=== PATIENT | female | born 1980 | race Two or more races ===

== ENCOUNTER 2020-08-05 15:12 | Inpatient (IN) | payer MEDICAID ==
[~2020-08-05] VITALS: Ht 172.7 cm; Wt 97.2 kg
[2020-08-05 16:35] LABS: Urine Bacteria FEW /hpf (None Seen); Urine Blood 2+ /uL (Negative); Urine Hyaline Cast FEW /lpf (0 - 2); Urine Mucus FEW (None Seen); Urine WBC 31 /hpf (0 - 5)
[2020-08-05] MEDS ORDERED: SODIUM CHLORIDE 0.9% 1,000 ML IVB ONE (17:03)
[2020-08-05] MEDS ORDERED: PROMETHAZINE HCL 25 MG/ML 1ML IV PRN (17:15)
[2020-08-05] MEDS: SODIUM CHLORIDE 0.9% 1,000 ML IV SCH (22:19)
[2020-08-05] MEDS ORDERED: ONDANSETRON HCL 4 MG/2 ML VIAL IV PRN (22:30)
[2020-08-05] MEDS ORDERED: DOCUSATE SOD 100 MG CAP PO PRN (22:30)
[2020-08-05] MEDS ORDERED: ACETAMINOPHEN 325 MG TAB PO PRN (22:30)
[2020-08-05] MEDS ORDERED: HYDROcodone-ACET 5/325MG TAB PO PRN (22:30)
[2020-08-05] MEDS ORDERED: LORazepam 0.5 MG TAB PO PRN (22:30)
[2020-08-05] MEDS ORDERED: SODIUM CHLORIDE 0.9% 1,000 ML IV ONE (22:30)
[2020-08-05] MEDS ORDERED: TEMAZEPAM 15 MG CAP PO PRN (22:30)
[2020-08-05 22:52] LABS: Basophils # (auto) 0 10 ^3/uL (0-0.2); Basophils % (auto) 0.3 % (0.0-2.0); Eosinophils # (auto) 0.1 10 ^3/uL (0-0.8); Eosinophils % (auto) 0.6 % (0.0-7.0); Hematocrit 52.1 % (36.0-46.0); Hemoglobin 16.3 g/dL (12.2-16.2); Lymphocytes # (auto) 2.5 10 ^3/uL (0.4-5.4); Lymphocytes % (auto) 20.1 % (10.0-50.0); Mean Corpuscular Hemoglobin 26.7 pg (28.0-32.0); Mean Corpuscular Hgb Conc. 31.2 g/dL (32.0-36.0); Mean Corpuscular Volume 85.5 fL (80.0-100.0); Monocytes % (auto) 7.7 % (0.0-12.0); Neutrophils # (auto) 8.8 10 ^3/uL (1.6-8.6); Neutrophils % (auto) 71.3 % (37.0-80.0); Nucleated Red Blood Cells % 0.1 %; Platelet Count (auto) 450 10^3/uL (140-450); Red Blood Cells 6.09 10^6/uL (4.0-5.20); White Blood Cell 12.3 10^3/uL (4.4-10.8)
[2020-08-05] MEDS ORDERED: cefTRIAXone 1GM/50ML D5W 50 ML IV ONE (23:15)
[2020-08-05] MEDS: cefTRIAXone 1GM/50ML D5W 50 ML IV SCH (23:26)
[2020-08-05] MEDS: MORPHINE SULF INJ 2 MG/ML SYRINGE 1ML IV PRN (23:28)
[2020-08-06 00:30] VITALS: BP 115/82
[2020-08-06] MEDS: SODIUM CHLORIDE 0.9% 1,000 ML IV SCH ×3 (03:32→14:07)
[2020-08-06 05:00] VITALS: BP 122/64
[2020-08-06 05:38] LABS: Basophils # (auto) 0.1 10 ^3/uL (0-0.2); Basophils % (auto) 0.9 % (0.0-2.0); Eosinophils # (auto) 0.1 10 ^3/uL (0-0.8); Eosinophils % (auto) 1.4 % (0.0-7.0); Hematocrit 47.9 % (36.0-46.0); Hemoglobin 15.1 g/dL (12.2-16.2); Lymphocytes # (auto) 2.6 10 ^3/uL (0.4-5.4); Lymphocytes % (auto) 28.1 % (10.0-50.0); Mean Corpuscular Hemoglobin 26.7 pg (28.0-32.0); Mean Corpuscular Hgb Conc. 31.6 g/dL (32.0-36.0); Mean Corpuscular Volume 84.5 fL (80.0-100.0); Monocytes # (auto) 0.8 10 ^3/uL (0-1.3); Neutrophils # (auto) 5.7 10 ^3/uL (1.6-8.6); Neutrophils % (auto) 60.6 % (37.0-80.0); Platelet Count (auto) 344 10^3/uL (140-450); Red Blood Cells 5.66 10^6/uL (4.0-5.20); Red Cell Distribution Width 15.8 % (11.8-14.3); White Blood Cell 9.4 10^3/uL (4.4-10.8)
[2020-08-06 06:06] LABS: BUN/Creatinine Ratio 15.7; Calcium 7.9 mg/dL (8.5-10.1); Potassium 3.7 mmol/L (3.5-5.1)
[2020-08-06 08:00] VITALS: BP 133/74
[2020-08-06] MEDS: MORPHINE SULF INJ 2 MG/ML SYRINGE 1ML IV PRN ×3 (08:29→23:30)
[2020-08-06 12:00] VITALS: BP 113/53
[2020-08-06 16:56] VITALS: BP 107/67
[2020-08-06 22:00] VITALS: BP 131/83
[2020-08-06] MEDS: cefTRIAXone 1GM/50ML D5W 50 ML IV SCH (23:29)
[2020-08-07] MEDS: SODIUM CHLORIDE 0.9% 1,000 ML IV SCH (02:38)
[2020-08-07 05:00] VITALS: BP 131/86
[2020-08-07 06:24] LABS: Basophils # (auto) 0 10 ^3/uL (0-0.2); Basophils % (auto) 0.5 % (0.0-2.0); Eosinophils # (auto) 0.1 10 ^3/uL (0-0.8); Eosinophils % (auto) 1.1 % (0.0-7.0); Hematocrit 39.5 % (36.0-46.0); Hemoglobin 13.1 g/dL (12.2-16.2); Lymphocytes # (auto) 2.6 10 ^3/uL (0.4-5.4); Lymphocytes % (auto) 37.3 % (10.0-50.0); Mean Corpuscular Hemoglobin 27.7 pg (28.0-32.0); Mean Corpuscular Hgb Conc. 33.2 g/dL (32.0-36.0); Mean Corpuscular Volume 83.4 fL (80.0-100.0); Monocytes # (auto) 0.6 10 ^3/uL (0-1.3); Neutrophils # (auto) 3.6 10 ^3/uL (1.6-8.6); Neutrophils % (auto) 52.1 % (37.0-80.0); Nucleated Red Blood Cells % 0.1 %; Platelet Count (auto) 352 10^3/uL (140-450); Red Blood Cells 4.74 10^6/uL (4.0-5.20); Red Cell Distribution Width 15.6 % (11.8-14.3); White Blood Cell 6.9 10^3/uL (4.4-10.8)
[2020-08-07 06:57] LABS: Potassium 3.6 mmol/L (3.5-5.1)
[2020-08-07 07:04] LABS: BUN/Creatinine Ratio 14.5; Calcium 7.9 mg/dL (8.5-10.1)
[2020-08-07] MEDS: MORPHINE SULF INJ 2 MG/ML SYRINGE 1ML IV PRN (07:45)
[2020-08-07 08:00] VITALS: BP 138/70
[2020-08-07 09:00] VITALS: BP 138/70
== END 2020-08-07 12:50 | disposition home or self-care (01) | DRG 463 ==
LOC: ER 15:12 → OVERFLOW 15:13 → CENTRAL 23:43
PROVIDERS: ADMIT Hospitalist; ATTEND Internal Medicine
DX: N12 Tubulo-interstitial nephritis, not specified as acute or chronic (principal); E86.0 Dehydration; E66.9 Obesity, unspecified; Z82.49 Family history of ischemic heart disease and other diseases of the circulatory system; Z88.0 Allergy status to penicillin; Z68.32 Body mass index [BMI] 32.0-32.9, adult
CPT/HCPCS: 36415; 71045; 74176; 80048; 81001; 82962; 85025; 87086; G0378; J0696; J2405

== ENCOUNTER 2023-05-11 08:25 | Emergency (ER) | payer MEDICAID ==
[~2023-05-11] VITALS: Ht 170.2 cm; Wt 90.1 kg
[2023-05-11] MEDS ORDERED: MECLIZINE HCL 25 MG TAB PO ONE (09:45)
[2023-05-11] MEDS ORDERED: ONDANSETRON ODT 4 MG TAB PO ONE (09:45)
[2023-05-11] MEDS ORDERED: ACET-1079 PO (09:45)
[2023-05-11] MEDS ORDERED: ACETAMINOPHEN 500 MG TAB PO ONE (09:45)
[2023-05-11] MEDS ORDERED: MECL-126 PO (09:47)
[2023-05-11 10:20] VITALS: BP 129/94
== END 2023-05-11 09:48 | disposition home or self-care (01) ==
LOC: ER 08:25
DX: G44.309 Post-traumatic headache, unspecified, not intractable (principal); W22.8XXA Striking against or struck by other objects, initial encounter; Y93.89 Activity, other specified; Y92.89 Other specified places as the place of occurrence of the external cause; Y99.8 Other external cause status
CPT/HCPCS: 70450; 99284; J8597; Q0162

== ENCOUNTER 2024-05-15 06:08 | Inpatient (IN) | payer MEDICAID ==
[~2024-05-15] VITALS: Ht 172.7 cm; Wt 88.6 kg
[2024-05-15] VITALS (7 sets, daily range): BP systolic 125–132; BP diastolic 76–80; PULSE 74–78; RESP 17–19; TEMP 98–98.4; O2SAT 96–99
[~2024-05-15 06:08] MED LIST: ACET-1079 PO; MECL-126 PO
[2024-05-15 07:15] LABS: Urine Amorphous Crystal FEW /hpf (None Seen); Urine Bacteria FEW /hpf (None Seen); Urine Blood Negative /uL (Negative); Urine Protein, UAD Negative (Negative); Urine Specific Gravity 1.012 (1.001-1.035); Urine Urobilinogen Normal (Negative); Urine WBC <1 /hpf (0 - 5)
[2024-05-15 07:29] LABS: Urine Clarity Clear (Clear); Urine Color Yellow (Yellow)
[2024-05-15 07:35] LABS: Basophils # (auto) 0 10 ^3/uL (0-0.2); Basophils % (auto) 0.2 % (0.0-2.0); Eosinophils # (auto) 0.1 10 ^3/uL (0-0.8); Eosinophils % (auto) 0.5 % (0.0-7.0); Hematocrit 49.1 % (36.0-46.0); Hemoglobin 16.2 g/dL (12.2-16.2); Lymphocytes # (auto) 1.9 10 ^3/uL (0.4-5.4); Lymphocytes % (auto) 12.4 % (10.0-50.0); Mean Corpuscular Hemoglobin 28.3 pg (28.0-32.0); Mean Corpuscular Volume 85.9 fL (80.0-100.0); Monocytes # (auto) 0.7 10 ^3/uL (0-1.3); Monocytes % (auto) 4.9 % (0.0-12.0); Neutrophils # (auto) 12.4 10 ^3/uL (1.6-8.6); Red Blood Cells 5.72 10^6/uL (4.0-5.20); Red Cell Distribution Width 14.2 % (11.8-14.3); White Blood Cell 15.2 10^3/uL (4.4-10.8)
[2024-05-15 07:47] LABS: Alanine Aminotransferase 24 U/L (7-40); Albumin 4.6 g/dL (3.2-4.8); Alkaline Phosphatase 130 U/L (46-116); Anion Gap 10 (5-15); Aspartate Aminotransferase 12 U/L (13-40); BUN/Creatinine Ratio 8.4 (10.0-20.0); Bilirubin, Total 1.1 mg/dL (0.2-1.0); Blood Urea Nitrogen 8 mg/dL (9-23); Calcium 9.4 mg/dL (8.5-10.1); Carbon Dioxide 22 mmol/L (20-30); Chloride 106 mmol/L (98-107); Glucose 99 mg/dL (74-106); Potassium 3.4 mmol/L (3.5-5.1); Sodium 138 mmol/L (136-145)
[2024-05-15 07:48] LABS: Total Protein 8.2 g/dL (5.7-8.2)
[2024-05-15 08:58] LABS: Lipase 30 U/L (12-53)
[2024-05-15] MEDS: ONDANSETRON HCL 4 MG/2 ML VIAL IV ONE (09:41)
[2024-05-15] MEDS: KETOROLAC TROMETH 30 MG/ML 1ML VIAL IV ONE (09:42)
[2024-05-15] MEDS: LABETALOL HCL 20 MG/4 ML VL IV ONE (09:47)
[2024-05-15] MEDS: LABETALOL HCL 5 MG/ML 4ML SYRINGE IV ONE (09:57)
[2024-05-15] MEDS: MORPHINE SULFATE 4 MG/ML SYR/VIAL IV ONE (10:24)
[2024-05-15] MEDS ORDERED: NITROGLYCERIN 0.4 MG SL TAB SL PRN (11:00)
[2024-05-15] MEDS ORDERED: MECLIZINE HCL 25 MG TAB PO PRN (11:00)
[2024-05-15] MEDS ORDERED: MORPHINE SULFATE INJ 2 MG/ml SYRG IV PRN (11:00)
[2024-05-15 12:20] LABS: Bilirubin, Direct 0.3 mg/dL (<0.3)
[2024-05-15 12:29] LABS: INR 1.01 (0.9-1.15); Prothrombin Time 10.7 sec (9.3-11.8)
[2024-05-15] MEDS: KETOROLAC TROMETH 30 MG/ML 1ML VIAL IV PRN (16:17)
[2024-05-15] MEDS: PANTOPRAZOLE 40 MG/10 ML VIAL INJ IV ONE (16:17)
[2024-05-15] MEDS: POTASSIUM EFFERVESENT TAB 25 MEQ PO ONE (16:17)
[2024-05-15] MEDS: SODIUM CHLORIDE 0.9% 1,000 ML IV SCH (17:26)
[2024-05-15] MEDS: metroNIDAZOLE 500MG/100ML 100 ML IV ONE (17:30)
[2024-05-15] MEDS: cefTRIAXone 1GM/50ML D5W 50 ML IV ONE (19:51)
[2024-05-15] MEDS: metroNIDAZOLE 500MG/100ML 100 ML IV SCH (21:45)
[2024-05-16] VITALS (8 sets, daily range): BP systolic 126–136; BP diastolic 80–87; PULSE 73–86; RESP 16–18; TEMP 97.7–98.2; O2SAT 97–99
[2024-05-16 05:50] LABS: Basophils # (auto) 0 10 ^3/uL (0-0.2); Basophils % (auto) 0.2 % (0.0-2.0); Eosinophils # (auto) 0.1 10 ^3/uL (0-0.8); Eosinophils % (auto) 0.8 % (0.0-7.0); Hematocrit 44.2 % (36.0-46.0); Hemoglobin 14.3 g/dL (12.2-16.2); Lymphocytes # (auto) 2.6 10 ^3/uL (0.4-5.4); Lymphocytes % (auto) 21.9 % (10.0-50.0); Mean Corpuscular Hemoglobin 27.9 pg (28.0-32.0); Mean Corpuscular Hgb Conc. 32.5 g/dL (32.0-36.0); Mean Corpuscular Volume 85.9 fL (80.0-100.0); Monocytes # (auto) 0.8 10 ^3/uL (0-1.3); Monocytes % (auto) 6.8 % (0.0-12.0); Neutrophils # (auto) 8.3 10 ^3/uL (1.6-8.6); Neutrophils % (auto) 70.3 % (37.0-80.0); Nucleated Red Blood Cells % 0.2 %; Red Blood Cells 5.14 10^6/uL (4.0-5.20); Red Cell Distribution Width 14.5 % (11.8-14.3); White Blood Cell 11.8 10^3/uL (4.4-10.8)
[2024-05-16 06:03] LABS: Alanine Aminotransferase 18 U/L (7-40); Albumin 3.6 g/dL (3.2-4.8); Alkaline Phosphatase 98 U/L (46-116); Anion Gap 6 (5-15); Aspartate Aminotransferase 11 U/L (13-40); BUN/Creatinine Ratio 13.3 (10.0-20.0); Bilirubin, Total 1.2 mg/dL (0.2-1.0); Blood Urea Nitrogen 10 mg/dL (9-23); Calcium 8.7 mg/dL (8.7-10.4); Carbon Dioxide 24 mmol/L (20-30); Chloride 107 mmol/L (98-107); Glucose 96 mg/dL (74-106); Potassium 3.7 mmol/L (3.5-5.1); Sodium 137 mmol/L (136-145); Total Protein 6.7 g/dL (5.7-8.2)
[2024-05-16] MEDS: cefTRIAXone 1GM/50ML D5W 50 ML IV SCH (09:38)
[2024-05-16] MEDS: PANTOPRAZOLE 40 MG/10 ML VIAL INJ IV SCH (09:39)
[2024-05-16] MEDS ORDERED: ENOXAPARIN SOD 40 MG/0.4 ML SYRINGE SC SCH (10:00)
[2024-05-16] MEDS: hydrALAZINE HCL 20 MG/ML VL IV PRN (19:33)
[2024-05-17] MEDS: ACETAMINOPHEN 325 MG TAB PO PRN (00:48)
[2024-05-17 01:00] VITALS: BP 143/86; PULSE 73; RESP 18; TEMP 98.1; O2SAT 99
[2024-05-17 05:00] VITALS: BP 142/94; PULSE 77; RESP 18; TEMP 98.5; O2SAT 100
[2024-05-17 07:10] LABS: Basophils # (auto) 0 10 ^3/uL (0-0.2); Basophils % (auto) 0.2 % (0.0-2.0); Eosinophils # (auto) 0.1 10 ^3/uL (0-0.8); Eosinophils % (auto) 1.6 % (0.0-7.0); Hematocrit 43.6 % (36.0-46.0); Hemoglobin 14.5 g/dL (12.2-16.2); Lymphocytes # (auto) 1.9 10 ^3/uL (0.4-5.4); Lymphocytes % (auto) 19.7 % (10.0-50.0); Mean Corpuscular Hemoglobin 28.4 pg (28.0-32.0); Mean Corpuscular Hgb Conc. 33.2 g/dL (32.0-36.0); Mean Corpuscular Volume 85.7 fL (80.0-100.0); Monocytes # (auto) 0.7 10 ^3/uL (0-1.3); Monocytes % (auto) 7.8 % (0.0-12.0); Neutrophils # (auto) 6.7 10 ^3/uL (1.6-8.6); Neutrophils % (auto) 70.7 % (37.0-80.0); Nucleated Red Blood Cells % 0.1 %; Red Blood Cells 5.09 10^6/uL (4.0-5.20); Red Cell Distribution Width 14.3 % (11.8-14.3); White Blood Cell 9.5 10^3/uL (4.4-10.8)
[2024-05-17 07:24] LABS: Alanine Aminotransferase 20 U/L (7-40); Alkaline Phosphatase 111 U/L (46-116); Anion Gap 7 (5-15); BUN/Creatinine Ratio 17.5 (10.0-20.0); Blood Urea Nitrogen 11 mg/dL (9-23); Calcium 8.6 mg/dL (8.5-10.1); Carbon Dioxide 24 mmol/L (20-30); Chloride 105 mmol/L (98-107); Glucose 94 mg/dL (74-106); Potassium 3.5 mmol/L (3.5-5.1); Sodium 136 mmol/L (136-145)
[2024-05-17 07:25] LABS: Albumin 3.5 g/dL (3.2-4.8); Aspartate Aminotransferase 16 U/L (13-40)
[2024-05-17 07:26] LABS: Bilirubin, Total 0.8 mg/dL (0.2-1.0); Total Protein 6.5 g/dL (5.7-8.2)
[2024-05-17 09:00] VITALS: BP 138/88; PULSE 73; RESP 20; TEMP 97.5; O2SAT 98
[2024-05-17] MEDS: amLODIPine BESYLATE 5 MG TAB PO ONE (09:17)
[2024-05-17 13:24] VITALS: BP 145/91; PULSE 67; RESP 20; TEMP 97.9; O2SAT 100
[2024-05-17] MEDS ORDERED: AML5T PO (16:41)
[2024-05-17 17:21] VITALS: BP 140/87; PULSE 76; RESP 20; TEMP 97.7; O2SAT 100
[2024-05-17 19:54] VITALS: BP 138/88
[2024-05-18] MEDS ORDERED: amLODIPine BESYLATE 5 MG TAB PO SCH (10:00)
== END 2024-05-17 20:50 | disposition home or self-care (01) ==
LOC: ER 06:12 → TELE 10:53 → TELE-CENTR 12:44 → CENTRAL 05-16 17:47
PROVIDERS: ADMIT Internal Medicine Geriatric Medicine; ATTEND Internal Medicine Geriatric Medicine
DX: K80.20 Calculus of gallbladder without cholecystitis without obstruction (principal); D72.829 Elevated white blood cell count, unspecified; E87.6 Hypokalemia; I10 Essential (primary) hypertension; Z82.49 Family history of ischemic heart disease and other diseases of the circulatory system; Z88.0 Allergy status to penicillin; Z79.899 Other long term (current) drug therapy
CPT/HCPCS: 36415; 76705; 80053; 81001; 82248; 83690; 84702; 85025; 85610; 87040; C9113; G0378; J1885; J2405; J2470; J3490

== ENCOUNTER 2025-04-11 15:54 | Emergency (ER) | payer MEDICAID ==
[~2025-04-11] VITALS: Ht 172.7 cm; Wt 87.0 kg
[~2025-04-11 15:54] MED LIST changes: +AML5T PO
--- NOTE | 2025-04-11 16:23 | ED.PDOC ---
GI ASSESSMENT HPI Comments HPI: 44 y/o F, with no prior medical history presents to the ED for CC of nausea/vomiting. Patient states, she has been experiencing symptoms of nausea, vomiting, and diarrhea x4days. Patient reports, being unable to eat d/t food coming out of one end. Patient describes, diarrhea to be brown/yellowish in appearance. Patient denies change in diet, fever, chills, fatigue, or . No other symptoms or modifying factors present at this time. Vitals Temperature: 98.6F Respiratory rate: 18 SpO2: 98%RA Heart rate: 86 Blood pressure: 146/100 Past Medical History: DENIES ANY Past Surgical History: TONSILLECTOMY Social History: DENIES ALL HERBIE: HPI: Poor Historian. Denies REVIEW OF SYSTEMS: CONSTITUTIONAL: Denies acute: fever, diaphoresis, chills, HEAD: Denies acute: headache, photophobia Eyes: Denies acute: Double vision, vision loss, eye pain, eye discharge. EARS: Denies acute: tinnitus, hearing loss, ear discharge, ear pain, THROAT: Denies acute: sore throat, swelling, difficulty swallowing , pain with swallowing, change in voice. NECK: Denies acute: neck pain, neck swelling, stiff neck. HEART: Denies acute : chest pain, palpitations, LUNGS: Denies acute: SOB, wheezing, cough, hemoptysis ABDOMEN: Denies acute: abdominal pain, , Vomiting, , melena , hematemesis, hematochezia SKIN: Denies acute: rash, redness, lesions, itchiness. EXTREMITIES: Denies acute: calf pain, numbness, tingling, weakness, denies pain in extremity. Denies acute: Low back pain. Neuro: Denies acute: focal neurological deficit, motor or sensory focal neurological deficit, tremors, seizure like activity, confusion, dizziness, change in mental status, loss of bowel or bladder function, cauda equina like symptoms. : Denies acute: dysuria, hematuria, flank pain, increase in urinary frequency. PSYCH: Denies acute: hallucination, suicidal ideation, homicidal ideation. FEMALE: Denies acute: abnormal vaginal bleeding, foul odor, unusual discharge. PHYSICAL EXAM: General: ----mild----acute distress, awake and alert. Head: normocephalic, atraumatic. Neck: supple, trachea is midline, no swelling. Throat: Normal phonation. Eyes:, no erythema, no purulent discharge, no proptosis, no icterus. Heart: regular rate, regular rhythm, no significant murmur appreciated. Lungs: no apparent respiratory distress, Able to speak in full sentences. No wheezing, no rhonchi, no crackles. No stridors Clear to auscultation bilaterally. Abdomen: non tender to palpation, non distended, soft, no guarding, no rebound, + bowel sounds. Neuro: Awake, Alert, oriented to name, self, situation, follows commands GCS=15. Speech is normal. Skin: no petechia, no purpura, no cyanosis, non-pale, not jaundice. Lower extremities: --no - Pitting edema no deformity, no focal swelling, no calf TTP. Makes eye contact. moves all four extremities. Face: no apparent facial droop. Ambulating in the ED independently. ED COURSE: Time Seen by MD: 16:18 Primary Care Provider: NONE Reviewed Notes: Nurses Notes, Medications, Allergies Allergies: Coded Allergies: Penicillins (Verified Allergy, Intermediate, 11/01/14) Home Meds Active Scripts Amlodipine Besylate (NORVASC TABLET) 5 Mg Tb, 5 MG PO DAILY for 90 Days, #90 TAB Prov:RUPERT MALDONADO RESIDENT 05/17/24 Meclizine HCl (Meclizine Hydrochloride) 25 Mg Tab, 25 MG PO [id number] PRN, #12 TAB 0 Refills Prov:KATIE OWEN [facility] 05/11/23 Acetaminophen (Tylenol) 325 Mg Tb, 325 MG PO Q4HPRN PRN, #30 TAB 0 Refills Take 1-2 caps po q4h prn for pain (Do not exceed 3,000mg of acetaminophen in 24 hours) Prov:KATIE OWEN [facility] 05/11/23 Information Source: Patient Mode of Arrival: Ambulatory Timing: Days Duration: Since onset Prehospital treatment: None Quality: None Vomitus: None Stool: Watery, Brown, Yellow Severity: Moderate Recent: None Recent Hx of: None Pain Location: RLQ Modifying Factors: Nothing Associated sign and symptoms: Nausea, Vomiting, Diarrhea, Abdominal Pain Was a procedure done? Was a procedure done?: No GI differential Dx Differential Diagnosis: Gastritis/PUD, Gastroenteritis, Electrolyte Imbalance, Food Poisoning, Bacterial, Viral, Other (DDX include Diverticulitis, colitis, gastroenteritis, acute abdomen, SBO, enteritis, constipation, volvulus, appendicitis, Gallbladder disease, choledocolithiasis, ascending cholangitis, pancreatitis, intraAbdominal mass/neoplasm, hepatitis, UTI, pylonephritis, kidney stone, aneurysm, dissection, Inflammatory bowel disease, gastroparesis, ischemic bowel, ovarian torsion, ovarian cyst/mass, tubo-ovarian abscess, , ectopic , PID, STD.) X-Ray, Labs, Meds, VS Vital Signs Date Time Temp Pulse Resp B/P (MAP) Pulse Ox O2 Delivery O2 Flow Rate FiO2 04/11/25 16:28 98.6 86 18 146/100 (115) 98 98.6 Lab Test 04/11/25 16:47 04/11/25 16:18 04/11/25 16:17 Range/Units Lactic Acid Level 2.0 0.4-2.0 mmol/L Urine Color Yellow Yellow Urine Clarity Turbid H Clear Urine pH 5.5 5.0-9.0 Urine Specific [place] 1.031 1.001-1.035 Urine Protein Trace H Negative Urine Ketones Negative Negative Urine Blood Negative Negative /uL Urine Nitrite Negative Negative Urine Bilirubin Negative Negative Urine Urobilinogen Normal Negative mg/dL Urine Leukocyte Esterase Negative Negative /uL Urine RBC 3 0 - 4 /hpf Urine Microscopic WBC 3 0-5 /HPF Urine Squamous Epithelial Cells Mod <5 /hpf Urine Calcium Oxalate Crystals Mod None Seen Urine Bacteria None seen None Seen /hpf Urine Mucus Few None Seen Urine Glucose Normal Normal mg/dL Stool for White Cells None seen White Blood Count 11.0 H 4.4-10.8 10^3/uL Red Blood Count 6.36 H 4.0-5.20 10^6/uL Hemoglobin 18.2 H 12.2-16.2 g/dL Hematocrit 54.8 H 36.0-46.0 % Mean Corpuscular Volume 86.2 80.0-100.0 fL Mean Corpuscular Hemoglobin 28.6 28.0-32.0 pg Mean Corpuscular Hemoglobin Concent 33.2 32.0-36.0 g/dL Red Cell Distribution Width 14.4 H 11.8-14.3 % Platelet Count 378 140-450 10^3/uL Mean Platelet Volume 8.2 6.9-10.8 fL Neutrophils (%) (Auto) 72.5 37.0-80.0 % Lymphocytes (%) (Auto) 18.2 10.0-50.0 % Monocytes (%) (Auto) 8.0 0.0-12.0 % Eosinophils (%) (Auto) 1.2 0.0-7.0 % Basophils (%) (Auto) 0.1 0.0-2.0 % Neutrophils # (Auto) 8.0 1.6-8.6 10 ^3/uL Lymphocytes # (Auto) 2.0 0.4-5.4 10 ^3/uL Monocytes # (Auto) 0.9 0-1.3 10 ^3/uL Eosinophils # (Auto) 0.1 0-0.8 10 ^3/uL Basophils # (Auto) 0 0-0.2 10 ^3/uL Nucleated Red Blood Cells 0.2 % Sodium Level 139 136-145 mmol/L Potassium Level 3.7 3.5-5.1 mmol/L Chloride Level 103 98-107 mmol/L Carbon Dioxide Level 26 20-31 mmol/L Anion Gap 10 5-15 Blood Urea Nitrogen 13 9-23 mg/dL Creatinine 0.70 0.550-1.02 mg/dL Glomerular Filtration Rate Calc 108 >90 mL/min BUN/Creatinine Ratio 18.6 10.0-20.0 Serum Glucose 77 74-106 mg/dL Calcium Level 9.6 8.7-10.4 mg/dL Magnesium Level 2.1 1.6-2.6 mg/dL Total Bilirubin 1.9 H 0.2-1.0 mg/dL Aspartate Amino Transferase (AST) 21 13-40 U/L Alanine Aminotransferase (ALT) 31 7-40 U/L Alkaline Phosphatase 163 H 46-116 U/L Troponin I High Sensitivity < 3 L </=34 ng/L Total Protein 8.9 H 5.7-8.2 g/dL Albumin 5.0 H 3.2-4.8 g/dL Lipase 31 12-53 U/L [facility] [id number] [facility] [address] Ph: [phone] DIAGNOSTIC IMAGING Diagnostic Imaging Report : [id number] Signed PATIENT: GREY WHITTAKERACCT: [id number] UNIT: [id number] : 1980 LOC: ER ROOM / BED: / AGE / SEX: 44 / F ADM STATUS: REG ER SERVICE 1616 ORDERING PHYSICIAN: RICARDO VALADEZ DO PROCEDURE(s): ABPL - CT AB PEL WO CON-NO ORAL OR IV REASON: diarrhea ORDER NUMBER(s): [id number], ACCESSION NUMBER(s): [id number] EXAM: CT CT AB PEL WO CON-NO ORAL OR IV INDICATION: diarrhea TECHNIQUE: Volumetric multidetector CT images of the abdomen and pelvis were obtained without contrast. All CT scans at this facility use dose modulation, iterative reconstruction, and/or weight based dosing when appropriate to reduce radiation dose to as low as reasonably achievable. COMPARISON: CT ABD PELVIS WO CONTRAST on DOS: 08/05/20 FINDINGS: [LOWER CHEST]: The partially visualized lung bases are clear without a pleural effusion. The cardiac size is normal without pericardial effusion. [LIVER]: Normal hepatic size without suspicious focal lesion. [GALLBLADDER AND BILIARY TREE]: Gallbladder is decompressed. Likely non radiopaque cholelithiasis. [SPLEEN]: Unremarkable. [PANCREAS]: Unremarkable. [ADRENAL GLANDS]: Unremarkable [KIDNEYS]: No hydronephrosis. No nephroureterolithiasis. [BLADDER]: Decompressed limiting evaluation [REPRODUCTIVE ORGANS]: Unremarkable. [BOWEL/MESENTERY]: Stomach is normal. No CT evidence of bowel obstruction. Normal appendix. [ASCITES]: Absent [LYMPHADENOPATHY]: No pathologically enlarged lymph nodes by CT size criteria [VASCULATURE]: No aneurysmal dilatation. [ABDOMINAL WALL]: Unremarkable. [MUSCULOSKELETAL]: No acute fracture or aggressive focal osseous lesion. Multifocal degenerative change of the visualized spine and hips. Oval-shaped sclerotic lesion along the left posterior iliac measuring 2.4 cm, indeterminate. IMPRESSION: 1. No CT evidence of an acute abdominal/pelvic process. ATED BY: ALLI WINN MD DICTATED DATE/TIME: 05/27/25 1701 SIGNED BY: ALLI WINN MD SIGNED DATE/TIME: 04/11/251700 CC: Time of 1ST Reevaluation: 16:48 Reevaluation 1ST: Unchanged Time of 2ND Reevaluation: 18:42 (As of this time, stool studies are still pending. Fluid has not been given yet) Patient Education/Counseling: Diagnosis, Treatment Family Education/Counseling: No Family Present Comments Patient presented with the above HPI.--diarrhea----workup was initiated. patient was found with the above mentioned diagnosis. the following medications were ordered: please refer to order lists of meds and tests obtained by myself Dr. Valadez. Patient ED course and VS have been stabilized. Patient has been reassessed in the ED and remained in a stable condition. Patient left against medical advice. All the reports of any imaging studies that were ordered by myself were reviewed by myself. Departure 1 Departure Time of Disposition: 19:38 Impression: Primary Impression: Diarrhea Disposition: LEFT AGAINST MEDICAL ADVICE Condition: Other Additional Instructions: You are leaving against medical advice. Return to the emergency department if you change your mind. Additional instructions: You MUST follow-up with your primary care/family doctor as soon as possible. If you are unable to see your primary care/family doctor, please return to our emergency room for re-assessment and re-evaluation as soon as possible. Return to the emergency room here in our facility or to the nearest ER [facility] if your symptoms change or worsen. CONSULTATIONS: you MUST Follow-up for consultation as soon as possible with: -gastroenterology as soon as possible. You MUST call the consultants office yourself to make an appointment. You may need to arrange that through your insurance and/or your primary/family doctor. If you are unable to see the foreign law consultant in 1 to 2 days, you must return to our emergency room (or any other ER of your choice) for re-assessment and re-evaluation. Adequate fluid hydration. Below is a copy of your radiological report for follow up: [place] [id number] Ph: [phone] DIAGNOSTIC IMAGING Diagnostic Imaging Report : [id number] Signed PATIENT: GREY WHITTAKER ACCT: [id number] UNIT: [id number] : 1980 LOC: ER ROOM / BED: / AGE / SEX: 44 / F ADM STATUS: REG ER SERVICE 1616 ORDERING PHYSICIAN: RICARDO VALADEZ DO PROCEDURE(s): ABPL - CT AB PEL WO CON-NO ORAL OR IV REASON: diarrhea ORDER NUMBER(s): [id number], ACCESSION NUMBER(s): [id number] EXAM: CT CT AB PEL WO CON-NO ORAL OR IV INDICATION: diarrhea TECHNIQUE: Volumetric multidetector CT images of the abdomen and pelvis were obtained without contrast. All CT scans at this facility use dose modulation, iterative reconstruction, and/or weight based dosing when appropriate to reduce radiation dose to as low as reasonably achievable. COMPARISON: CT ABD PELVIS WO CONTRAST on DOS: 08/05/20 FINDINGS: [LOWER CHEST]: The partially visualized lung bases are clear without a pleural effusion. The cardiac size is normal without pericardial effusion. [LIVER]: Normal hepatic size without suspicious focal lesion. [GALLBLADDER AND BILIARY TREE]: Gallbladder is decompressed. Likely non radiopaque cholelithiasis. [SPLEEN]: Unremarkable. [PANCREAS]: Unremarkable. [ADRENAL GLANDS]: Unremarkable [KIDNEYS]: No hydronephrosis. No nephroureterolithiasis. [BLADDER]: Decompressed limiting evaluation [REPRODUCTIVE ORGANS]: Unremarkable. [BOWEL/MESENTERY]: Stomach is normal. No CT evidence of bowel obstruction. Normal appendix. [ASCITES]: Absent [LYMPHADENOPATHY]: No pathologically enlarged lymph nodes by CT size criteria [VASCULATURE]: No aneurysmal dilatation. [ABDOMINAL WALL]: Unremarkable. [MUSCULOSKELETAL]: No acute fracture or aggressive focal osseous lesion. Multifocal degenerative change of the visualized spine and hips. Oval-shaped sclerotic lesion along the left posterior iliac measuring 2.4 cm, indeterminate. IMPRESSION: 1. No CT evidence of an acute abdominal/pelvic process. ATED BY: ALLI WINN MD DICTATED DATE/TIME: 04/11/251700 SIGNED BY: ALLI WINN MD SIGNED DATE/TIME: 04/11/251700 CC: Discharged With: Self Critical Care Note Critical Care Time?: No I personally scribed for RICARDO VALADEZ DO ([email or web address]) on 04/11/25 at 16:23. Electronically submitted by Marga Dunham [email or web address]). I personally scribed for RICARDO VALADEZ DO ([email or web address]) on 04/11/25 at 17:35. Electronically submitted by Marga Dunham [email or web address]). I personally scribed for RICARDO VALADEZ DO ([email or web address]) on 04/12/25 at 00:46. Electronically submitted by Colton Sexton ([email or web address]). RICARDO VALADEZ DO April 11, 2025 16:23
[2025-04-11 16:28] VITALS: BP 146/100; PULSE 86; RESP 18; TEMP 98.6; O2SAT 98
[2025-04-11] MEDS ORDERED: ONDANSETRON HCL 4 MG/2 ML VIAL IV ONE (16:30)
[2025-04-11] MEDS ORDERED: SODIUM CHLORIDE 0.9% 1,000 ML IV ONE (16:30)
[2025-04-11 17:04] LABS: Urine Bacteria None Seen /hpf (None Seen)
--- NOTE | 2025-04-11 17:04 | DVH ---
EXAM: CT CT AB PEL WO CON-NO ORAL OR IV INDICATION: diarrhea TECHNIQUE: Volumetric multidetector CT images of the abdomen and pelvis were obtained without contras t. All CT scans at this facility use dose modulation, iterative reconstruction, and/or weight based d osing when appropriate to reduce radiation dose to as low as reasonably achievable. COMPARISON: CT ABD PELVIS WO CONTRAST on DOS: 08/05/20 FINDINGS: [LOWER CHEST]: The partially visualized lung bases are clear without a pleural effusion. The cardiac size is normal without pericardial effusion. [LIVER]: Normal hepatic size without suspicious focal lesion. [GALLBLADDER AND BILIARY TREE]: Gallbladder is decompressed. Likely non radiopaque cholelithiasis. [SPLEEN]: Unremarkable. [PANCREAS]: Unremarkable. [ADRENAL GLANDS]: Unremarkable [KIDNEYS]: No hydronephrosis. No nephroureterolithiasis. [BLADDER]: Decompressed limiting evaluation [REPRODUCTIVE ORGANS]: Unremarkable. [BOWEL/MESENTERY]: Stomach is normal. No CT evidence of bowel obstruction. Normal appendix. [ASCITES]: Absent [LYMPHADENOPATHY]: No pathologically enlarged lymph nodes by CT size criteria [VASCULATURE]: No aneurysmal dilatation. [ABDOMINAL WALL]: Unremarkable. [MUSCULOSKELETAL]: No acute fracture or aggressive focal osseous lesion. Multifocal degenerative medina ge of the visualized spine and hips. Oval-shaped sclerotic lesion along the left posterior iliac hank uring 2.4 cm, indeterminate. IMPRESSION: 1. No CT evidence of an acute abdominal/pelvic process.
[2025-04-11 17:20] LABS: Basophils # (auto) 0 10 ^3/uL (0-0.2); Basophils % (auto) 0.1 % (0.0-2.0); Eosinophils # (auto) 0.1 10 ^3/uL (0-0.8); Eosinophils % (auto) 1.2 % (0.0-7.0); Hematocrit 54.8 % (36.0-46.0); Hemoglobin 18.2 g/dL (12.2-16.2); Lymphocytes % (auto) 18.2 % (10.0-50.0); Mean Corpuscular Hemoglobin 28.6 pg (28.0-32.0); Mean Corpuscular Hgb Conc. 33.2 g/dL (32.0-36.0); Mean Corpuscular Volume 86.2 fL (80.0-100.0); Monocytes # (auto) 0.9 10 ^3/uL (0-1.3); Neutrophils % (auto) 72.5 % (37.0-80.0); Nucleated Red Blood Cells % 0.2 %; Platelet Count (auto) 378 10^3/uL (140-450); Red Blood Cells 6.36 10^6/uL (4.0-5.20); Red Cell Distribution Width 14.4 % (11.8-14.3)
[2025-04-11 17:26] LABS: Urine Blood Negative /uL (Negative); Urine Clarity Turbid (Clear); Urine Color Yellow (Yellow); Urine Mucus FEW (None Seen); Urine Protein, UAD TRACE (Negative); Urine Specific Gravity 1.031 (1.001-1.035); Urine Squamous Epithelial Cell MOD /hpf (<5); Urine Urobilinogen Normal (Negative); Urine WBC 3 /HPF (0-5); Urine pH 5.5 (5.0-9.0)
[2025-04-11 17:38] LABS: Alanine Aminotransferase 31 U/L (7-40); Alkaline Phosphatase 163 U/L (46-116); Anion Gap 10 (5-15); Aspartate Aminotransferase 21 U/L (13-40); BUN/Creatinine Ratio 18.6 (10.0-20.0); Blood Urea Nitrogen 13 mg/dL (9-23); Calcium 9.6 mg/dL (8.7-10.4); Carbon Dioxide 26 mmol/L (20-31); Chloride 103 mmol/L (98-107); Glucose 77 mg/dL (74-106); Lipase 31 U/L (12-53); Magnesium 2.1 mg/dL (1.6-2.6); Potassium 3.7 mmol/L (3.5-5.1); Sodium 139 mmol/L (136-145); Total Protein 8.9 g/dL (5.7-8.2)
[2025-04-11 17:39] LABS: Bilirubin, Total 1.9 mg/dL (0.2-1.0)
== END 2025-04-11 19:29 | disposition left against medical advice (07) ==
LOC: ER 15:54
DX: R19.7 Diarrhea, unspecified (principal); Z88.0 Allergy status to penicillin; Z79.899 Other long term (current) drug therapy; Z90.89 Acquired absence of other organs
CPT/HCPCS: 36415; 74176; 80053; 81001; 83605; 83690; 83735; 84484; 85025; 85048; 87045

== ENCOUNTER 2025-08-11 16:14 | Inpatient (IN) | payer MEDICAID ==
[~2025-08-11] VITALS: Ht 170.2 cm; Wt 88.7 kg
--- NOTE | 2025-08-11 16:36 | ED.PDOC ---
GI ASSESSMENT HPI Comments A 44 YEAR OLD FEMALE PRESENTS TO THE ED WITH COMPLAINT OF EPIGASTRIC PAIN WITH NAUSEA AND VOMITING. PATIENT STATES SHE HAS A HISTORY OF GALLSTONES FOR 9 MONTHS. TODAY, SHE ATE FRIED POTATO AND STARTED EXPERIENCING EPIGASTRIC PAIN THAT RADIATES TO HER MIDDLE BACK WITH NAUSEA AND VOMITING. THE PAIN LEVEL IS 10/10 AT THIS TIME. PT HAS HX OF HTN AND DID NOT TAKE HER BLOOD PRESSURE FOR MONTHS AND NOW HAS AN ELEVATED BLOOD PRESSURE DUE TO THIS AND ALSO DUE TO HER INTRACTABLE PAIN. PATIENT DENIES FEVER, CHILLS, SHORTNESS OF BREATH, CHEST PAIN, HEADACHE, OR OTHER COMPLAINTS. NO OTHER SYMPTOMS OR MODIFYING FACTORS AT THIS TIME. PATIENT IS ALERT, ORIENTED X 4, AND HAS STEADY GAIT. Chief Complaint: Abdominal Pain Time Seen by MD: 16:27 Primary Care Provider: NONE Reviewed Notes: Nurses Notes, Medications, Allergies Allergies: Coded Allergies: Penicillins (Verified Allergy, Intermediate, 11/01/14) Home Meds Active Scripts Amlodipine Besylate (NORVASC TABLET) 5 Mg Tb, 5 MG PO DAILY for 90 Days, #90 TAB Prov:RUPERT MALDONADO RESIDENT 05/17/24 Meclizine HCl (Meclizine Hydrochloride) 25 Mg Tab, 25 MG PO [id number] PRN, #12 TAB 0 Refills Prov:[facility] 05/11/23 Acetaminophen (Tylenol) 325 Mg Tb, 325 MG PO Q4HPRN PRN, #30 TAB 0 Refills Take 1-2 caps po q4h prn for pain (Do not exceed 3,000mg of acetaminophen in 24 hours) Prov:[facility] 05/11/23 Information Source: Patient Mode of Arrival: Wheelchair Timing: Hours Duration: Since onset, Intermittent, Hours Prehospital treatment: None Quality: Aching, Cramping Vomitus: Food Particles Stool: Normal Severity: Moderate Recent: None Recent Hx of: None Pain Location: Epigastric Modifying Factors: Nothing Associated sign and symptoms: Nausea, Vomiting, Abdominal Pain Past Medical History PAST MEDICAL HISTORY: Gallstones, HTN Surgical History: Denies all surgeries [employer]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 Family History Family History: Reviewed,noncontributory to illness, Family hx of HTN Social History Smoker: Non-Smoker Alcohol: Rarely Drugs: Marijuana Lives In: Home Constitutional: reports: others (ANXIOUS ); denies: chills, diaphoresis, fatigue, fever, malaise, sweats, weakness EENTM: denies: blurred vision, double vision, ear bleeding, ear discharge, ear drainage, ear pain, ear ringing, eye pain, eye redness, hearing loss, mouth pain, mouth swelling, nasal discharge, nose bleeding, nose congestion, nose pain, photophobia, tearing, throat pain, throat swelling, voice changes, others Respiratory: denies: cough, hemoptysis, orthopnea, SOB at rest, shortness of breath, SOB with excertion, stridor, wheezing, others Cardiovascular: denies: chest pain, dizzy spells, diaphoresis, Dyspnea on exertion, edema, irregular heart beat, left arm pain, lightheadedness, palpitations, PND, syncope, others Gastrointestinal: reports: abdominal pain, nausea, vomiting; denies: abdomen distended, blood streaked bowels, constipated, diarrhea, dysphagia, difficulty swallowing, hematemesis, melena, poor appetite, poor fluid intake, rectal bleeding, rectal pain, others Genitourinary: denies: abnormal vagina bleeding, burning, dyspareunia, dysuria, flank pain, frequency, hematuria, incontinence, pain, , vagina discharge, urgency, others Neurological: denies: dizziness, fainting, headache, left sided numbness, left sided weakness, numbness, paresthesia, pre-existing deficit, right sided numbness, right sided weakness, seizure, speech problems, tingling, tremors, weakness, others Musculoskeletal: reports: back pain; denies: gout, joint pain, joint swelling, muscle pain, muscle stiffness, neck pain, others Integumetry: denies: bruises, change in color, change in hair/nails, dryness, laceration, lesions, lumps, rash, wounds, others Allergic/Immunocompromised: denies: Difficulty Healing, Frequent Infections, Hives, Itching, others Hematologic/Lymphatic: denies: anemia, blood clots, easy bleeding, easy br uising, swollen glands, others Endocrine: denies: excessive hunger, excessive sweating, excessive thirst, excessive urination, flushing, intolerance to cold, intolerance to heat, unexplained weight gain, unexplained weight loss, others Psychiatric: denies: anxiety, bipolar disorder, depression, hopeless, panic disorder, schizophrenia, sleepless, suicidal, others All Other Systems: Reviewed and Negative Physical Exam General Appearance: Mild Distress, Other (ANXIOUS ) HEENT: Normal ENT Inspection, PERRL/EOMI, Pharynx Normal, TMs Normal Neck: Full Range of Motion, Non-Tender, Normal, Normal Inspection Respiratory: Chest Non-Tender, Lungs Clear, No Accessory Muscle Use, No Respiratory Distress, Normal Breath Sounds Cardiovascular: No Edema, No JVD, No Murmur, No Gallop, Normal Peripheral Pulses, Regular Rate/Rhythm Breast Exam: Deferred Gastrointestinal: Epigastric, No Organomegaly, No Pulsatile Mass, Normal Bowel Sounds, Soft, Tenderness (EPIGASTRIC WITH GUARDING, NO REBOUND TENDERNESS. ) Genitalia: Deferred Pelvic: Deferred Rectal: Deferred Extremities: No calf tenderness, Normal capillary refill, Normal inspection, Normal range of motion, Non-tender, No pedal edema Musculoskeletal : Apperance: Normal Neurologic: Alert, speech and language clinician II-XII nml as Tested, No Motor Deficits, Normal Affect, Normal Mood, No Sensory Deficits Cerebellar Function: Normal Reflexes: Normal Skin: Dry, Normal Color, Warm Peripheral Pulses: 2+ carotid (R), 2+ carotid (L) Lymphatic: No Adenopathy Was a procedure done? Was a procedure done?: No GI differential Dx Differential Diagnosis: Cholecystitis, Constipation, Gastritis/PUD, Pancreatiti s, UTI, Dehydration X-Ray, Labs, Meds, VS Vital Signs Date Time Temp Pulse Resp B/P (MAP) Pulse Ox O2 Delivery O2 Flow Rate FiO2 08/11/25 16:54 69 20 185/90 08/11/25 16:24 97.3 64 16 208/93 100 97.3 Lab Test 08/11/25 16:36 Range/Units White Blood Count 11.8 H 4.4-10.8 10^3/uL Red Blood Count 5.66 H 4.0-5.20 10^6/uL Hemoglobin 16.1 12.2-16.2 g/dL Hematocrit 48.7 H 36.0-46.0 % Mean Corpuscular Volume 86.0 80.0-100.0 fL Mean Corpuscular Hemoglobin 28.5 28.0-32.0 pg Mean Corpuscular Hemoglobin Concent 33.1 32.0-36.0 g/dL Red Cell Distribution Width 14.4 H 11.8-14.3 % Platelet Count 335 140-450 10^3/uL Mean Platelet Volume 8.5 6.9-10.8 fL Neutrophils (%) (Auto) 81.8 H 37.0-80.0 % Lymphocytes (%) (Auto) 13.2 10.0-50.0 % Monocytes (%) (Auto) 4.4 0.0-12.0 % Eosinophils (%) (Auto) 0.2 0.0-7.0 % Basophils (%) (Auto) 0.4 0.0-2.0 % Neutrophils # (Auto) 9.7 H 1.6-8.6 10 ^3/uL Lymphocytes # (Auto) 1.6 0.4-5.4 10 ^3/uL Monocytes # (Auto) 0.5 0-1.3 10 ^3/uL Eosinophils # (Auto) 0 0-0.8 10 ^3/uL Basophils # (Auto) 0 0-0.2 10 ^3/uL Nucleated Red Blood Cells 0.1 % Sodium Level 138 136-145 mmol/L Potassium Level 3.6 3.5-5.1 mmol/L Chloride Level 105 98-107 mmol/L Carbon Dioxide Level 21 20-31 mmol/L Anion Gap 12 5-15 Blood Urea Nitrogen 6 L 9-23 mg/dL Creatinine 0.77 0.550-1.02 mg/dL Glomerular Filtration Rate Calc 96 >90 mL/min BUN/Creatinine Ratio 7.8 L 10.0-20.0 Serum Glucose 108 H 74-106 mg/dL Calcium Level 9.5 8.7-10.4 mg/dL Total Bilirubin 1.2 H 0.2-1.0 mg/dL Aspartate Amino Transferase (AST) 22 13-40 U/L Alanine Aminotransferase (ALT) 26 7-40 U/L Alkaline Phosphatase 145 H 46-116 U/L Total Protein 8.4 H 5.7-8.2 g/dL Albumin 4.4 3.2-4.8 g/dL Lipase 28 12-53 U/L Current Medications Medications (Trade) Dose Ordered Sig/Shirley Route Start Time Stop Time Status Last Admin Sodium Chloride 1,000 ml @ 1,000 mls/hr Q1H ONCE IV 08/11/25 16:45 08/11/25 17:44 9/26/25 17:26 EXAM: US GALLBLADDER HISTORY: EPIGASTRIC PAIN WITH N/V, HX OF GALLSTONES COMPARISON: US GALLBLADDER on DOS: 05/15/24 TECHNIQUE: Multiple longitudinal and transverse sonographic images of the abdomen were obtained. Doppler was applied as indicated. FINDINGS: [PANCREAS]: The visualized portions of the pancreas are unremarkable. [AORTA]: Normal [LIVER]: 14.1 cm. normal echogenicity and echotexture. There is no focal hepatic mass lesion detected. [GALLBLADDER]: Gallbladder wall measures 0.2 cm. Cholelithiasis seen in the gallbladder neck. Possible biliary sludge. There is a positive sonographic Velasquez sign. [BILIARY TREE]: Common bile duct measures 0.7 cm in diameter. no intrahepatic biliary ductal dilatation. [ASCITES]: No free fluid is demonstrated. [VESSELS]: The main portal vein is patent on color Doppler evaluation. The inferior vena cava is patent on color Doppler evaluation. [RIGHT KIDNEY]: 12.6 cm. normal cortical echogenicity and normal contour. No hydronephrosis. IMPRESSION: 1. Cholelithiasis with positive sonographic Velasquez sign. 2. No gallbladder wall thickening or pericholecystic fluid. 3. Common bile duct is mildly dilated measuring 0.7 cm in diameter. 4. Correlate for acute cholecystitis. ATED BY: ALLI WINN MD DICTATED DATE/TIME: 08/11/251729 SIGNED BY: ALLI WINN MD SIGNED DATE/TIME: 08/11/251729 CC: X-Ray, Labs, Meds, VS Comment EXTERNAL MEDICAL RECORDS REVIEWED: [NONE] INDEPENDENT HISTORIANS: [NONE] SOCIAL DETERMINANTS OF HEALTH: [NONE] LABS ORDERED: CBC, CMP, UA, LIPASE REVIEWED AND INTERPRETED RESULTS: TBI 1.2, WBC 11.8 IMAGING ORDERED: US ABDOMEN TREATMENTS ORDERED: NS 1 L IV, ZOFRAN 4 MG IV, MORPHINE 4 MG IV, HYDRALAZINE 20 MG IV AND ROCEPHIN 1GM IVP PROCEDURES PERFORMED: NONE CRITICAL CARE TIME: NONE I HAVE DISCUSSED THE PATIENT WITH THE ATTENDING PHYSICIAN DR. KELLY AND HE AGREES WITH THE PATIENT'S PLAN OF CARE. UPON MY PHYSICAL EXAMINATION, THE PATIENT HAD GUARDING NOTED UPON PALPATION TO HER EPIGASTRIC REGION AND WAS VELASQUEZ'S SIGN POSITIVE UPON PALPATION, BUT NO REBOUND TENDERNESS WAS NOTED. PATIENT'S ULTRASOUND RESULTS REVEAL A POSITIVE VELASQUEZ'S SIGN AND MULTIPLE GALLSTONES, BILIARY SLUDGE, AND A MILDLY DILATED CBD. DUE TO THE PATIENT'S PERSISTENT PAIN DESPITE TREATMENT, ELEVATED BLOOD PRESSURE, AND HER ULTRASOUND RESULTS AND CLINICAL EXAM FINDINGS REVEALING FINDINGS CONSISTENT WITH ACUTE CHOLECYSTITIS, I HAVE DETERMINED THE PATIENT SHOULD BE ADMITTED FOR FURTHER TREATMENT AND EVALUATION. THE ON-CALL HOSPITALIST WILL BE CONTACTED FOR ADMISSION OF THIS PATIENT. Images Reviewed?: Images reviewed and evaluated by me Time of 1ST Reevaluation: 17:40 Reevaluation 1ST: Unchanged Patient Education/Counseling: Diagnosis, Treatment Family Education/Counseling: Diagnosis, Treatment SEPSIS Sepsis Screen Date sepsis recognized/suspect: Aug 11, 2025 Time Sepsis recognized/suspect: 1625 Recent Procedure: No On Antibiotic Therapy: No Respiratory Rate >20: No Heart Rate >90: No Temp<36 C (96.8 F) or >38.3 C: No SBP <90 or MAP <65 mmHG: No New Acute Mental Status Change: No Is the patient on CPAP, BIPAP,: No Physician Orders Urinalysis (08/11/25 16:27) Heplock Iv (08/11/25 ) Sodium Chloride 0.9% (08/11/25 16:45) Gallbladder (08/11/25 16:32) Hydralazine Injection (Apresoline Inject (08/11/25 17:45) Ceftriaxone 1gm/50ml (Rocephin) (08/11/25 17:45) Vital Signs Date Time Temp Pulse Resp B/P (MAP) Pulse Ox O2 Delivery O2 Flow Rate FiO2 08/11/25 16:54 69 20 185/90 08/11/25 16:24 97.3 64 16 208/93 100 97.3 Laboratory Tests Test 08/11/25 16:36 White Blood Count 11.8 10^3/uL (4.4-10.8) H Medications Medications Dose Ordered Sig/Shirley Route Start Time Stop Time Status Last Admin Dose Admin Sodium Chloride 1,000 ml @ 1,000 mls/hr Q1H ONCE IV 08/11/25 16:45 08/11/25 17:44 08/11/25 17:26 Departure 1 Departure Time of Disposition: 17:41 Impression: Primary Impression: Cholelithiasis with cholecystitis Qualified Codes: K80.00 - Calculus of gallbladder with acute cholecystitis without obstruction Additional Impression: Accelerated hypertension Disposition: ADMITTED INPATIENT Condition: Serious Critical Care Note Critical Care Time?: No Stability Stability form required: Yes Unstable for transfer: Requires medication, ED Physician Assesment, Possible rapid decline I personally scribed for ZION ALBERT ([email or web address]) on 08/11/25 at 16:36. Electronically submitted by Edson Jenkins ([email or web address]). I personally scribed for ZION ALBERT ([email or web address]) on 08/11/25 at 16:36. Electronically submitted by Edson Jenkins ([email or web address]). I personally scribed for ZION ALBERT ([email or web address]) on 08/11/25 at 17:35. Electronically submitted by Edson Jenkins ([email or web address]). I personally scribed for ZION ALBERT ([email or web address]) on 08/11/25 at 17:37. Electronically submitted by Edson Jenkins ([email or web address]). ZION ALBERT Aug 11, 2025 16:36
[2025-08-11] MEDS: MORPHINE SULFATE 4 MG/ML SYR/VIAL IV ONE (16:54)
[2025-08-11] MEDS: ONDANSETRON HCL 4 MG/2 ML VIAL IV ONE (16:57)
[2025-08-11 16:58] LABS: Hematocrit 48.7 % (36.0-46.0); Hemoglobin 16.1 g/dL (12.2-16.2); Mean Corpuscular Hemoglobin 28.5 pg (28.0-32.0); Mean Corpuscular Volume 86.0 fL (80.0-100.0); Nucleated Red Blood Cells % 0.1 %
[2025-08-11 17:18] LABS: Alanine Aminotransferase 26 U/L (7-40); Albumin 4.4 g/dL (3.2-4.8); Anion Gap 12 (5-15); BUN/Creatinine Ratio 7.8 (10.0-20.0); Calcium 9.5 mg/dL (8.7-10.4); Carbon Dioxide 21 mmol/L (20-31); Chloride 105 mmol/L (98-107); Lipase 28 U/L (12-53); Potassium 3.6 mmol/L (3.5-5.1); Sodium 138 mmol/L (136-145)
[2025-08-11 17:19] LABS: Alkaline Phosphatase 145 U/L (46-116); Bilirubin, Total 1.2 mg/dL (0.2-1.0); Blood Urea Nitrogen 6 mg/dL (9-23); Glucose 108 mg/dL (74-106); Total Protein 8.4 g/dL (5.7-8.2)
[2025-08-11] MEDS: SODIUM CHLORIDE 0.9% 1,000 ML IV ONE (17:26)
--- NOTE | 2025-08-11 17:32 | DVH ---
EXAM: US GALLBLADDER HISTORY: EPIGASTRIC PAIN WITH N/V, HX OF GALLSTONES COMPARISON: US GALLBLADDER on DOS: 05/15/24 TECHNIQUE: Multiple longitudinal and transverse sonographic images of the abdomen were obtained. Dopp ler was applied as indicated. FINDINGS: [PANCREAS]: The visualized portions of the pancreas are unremarkable. [AORTA]: Normal [LIVER]: 14.1 cm. normal echogenicity and echotexture. There is no focal hepatic mass lesion detected . [GALLBLADDER]: Gallbladder wall measures 0.2 cm. Cholelithiasis seen in the gallbladder neck. Possib le biliary sludge. There is a positive sonographic Velasquez sign. [BILIARY TREE]: Common bile duct measures 0.7 cm in diameter. no intrahepatic biliary ductal dilatati on. [ASCITES]: No free fluid is demonstrated. [VESSELS]: The main portal vein is patent on color Doppler evaluation. The inferior vena cava is esparza nt on color Doppler evaluation. [RIGHT KIDNEY]: 12.6 cm. normal cortical echogenicity and normal contour. No hydronephrosis. IMPRESSION: 1. Cholelithiasis with positive sonographic Velasquez sign. 2. No gallbladder wall thickening or pericholecystic fluid. 3. Common bile duct is mildly dilated measuring 0.7 cm in diameter. 4. Correlate for acute cholecystitis.
[2025-08-11] MEDS: hydrALAZINE HCL 20 MG/ML VL IV ONE (17:49)
[2025-08-11] MEDS ORDERED: hydrALAZINE HCL 20 MG/ML VL IV PRN (20:45)
[2025-08-11] MEDS ORDERED: ONDANSETRON HCL 4 MG/2 ML VIAL IV PRN (20:45)
[2025-08-11] MEDS: PANTOPRAZOLE 40 MG/10 ML VIAL INJ IV ONE (21:02)
--- NOTE | 2025-08-11 23:00 | DVHHP2 ---
History of Present Illness Reason for Visit: Abdominal pain History of Present Illness 44-year-old female presents for evaluation of abdominal pain. Patient endorses a one day history of sharp right upper quadrant abdominal pain that radiates to her back. She reports being diagnosed with gallstones in the past. She also reports having episodes of nausea with vomiting and some chills. Patient was also noted to be hypertensive on arrival to the emergency department. Denies headache or blurred vision. No other acute complaints reported. Past Medical History Hypertension and gallstones Past Surgical History Denies Family History Noncontributory Smoke: No ALCOHOL: occassional Drugs: Marijuana Lives: with Family Review of Systems Review of Systems Review of systems are currently negative otherwise addressed in HPI. Allergies: Coded Allergies: Penicillins (Verified Allergy, Intermediate, 11/01/14) Medications Current Medications Medications Dose Ordered Sig/Shirley Route Start Time Stop Time Status Last Admin Dose Admin Levofloxacin/ Dextrose 100 ml @ 100 mls/hr DAILY IV 08/12/25 10:00 Metronidazole 100 ml @ 100 mls/hr Q8HR IV 08/11/25 22:00 08/11/25 21:03 100 MLS/HR Pantoprazole Sodium 40 mg DAILY IV 08/12/25 10:00 Hydralazine HCl 10 mg Q6HP PRN IV 08/11/25 20:45 Ondansetron HCl 4 mg Q4HP PRN IV 08/11/25 20:45 Morphine Sulfate 2 mg Q4HPRN PRN IV 08/11/25 20:45 Exam Vital Signs Vital Signs Date Time Temp Pulse Resp B/P (MAP) Pulse Ox O2 Delivery O2 Flow Rate FiO2 08/11/25 21:01 98.1 102 20 125/76 (92) 98 98.1 08/11/25 18:21 Room Air Exam Gen: 44-year-old female in mild distress Skin: Warm, dry, normal color and texture, no rash. HEENT: Normocephalic atraumatic, mucous membranes moist and pink. Neck: Cervical and supraclavicular nodes normal without enlargement, trachea is midline, thyroid gland is normal without masses. Pulmonary: Clear to auscultation and percussion bilaterally. Cardiac: Regular rate and rhythm. No murmur Abdomen: Soft, right upper quadrant tenderness, nondistended, bowel sounds present all 4 quadrants, no guarding, no rigidity, no organomegaly. Extremities: No cyanosis, clubbing, no edema Neuro: Cranial nerves II through XII grossly intact, normal affect and speech, no focal motor deficits. Labs/Xrays ORDERING PHYSICIAN: ZION ALBERT PROCEDURE(s): GBUS - GALLBLADDER REASON: EPIGASTRIC PAIN WITH N/V, HX OF GALLSTONES ORDER NUMBER(s): [id number], ACCESSION NUMBER(s): [id number] EXAM: US GALLBLADDER HISTORY: EPIGASTRIC PAIN WITH N/V, HX OF GALLSTONES COMPARISON: US GALLBLADDER on DOS: 05/15/24 TECHNIQUE: Multiple longitudinal and transverse sonographic images of the abdomen were obtained. Doppler was applied as indicated. FINDINGS: [PANCREAS]: The visualized portions of the pancreas are unremarkable. [AORTA]: Normal [LIVER]: 14.1 cm. normal echogenicity and echotexture. There is no focal hepatic mass lesion detected. [GALLBLADDER]: Gallbladder wall measures 0.2 cm. Cholelithiasis seen in the gallbladder neck. Possible biliary sludge. There is a positive sonographic Velasquez sign. [BILIARY TREE]: Common bile duct measures 0.7 cm in diameter. no intrahepatic biliary ductal dilatation. [ASCITES]: No free fluid is demonstrated. [VESSELS]: The main portal vein is patent on color Doppler evaluation. The inferior vena cava is patent on color Doppler evaluation. [RIGHT KIDNEY]: 12.6 cm. normal cortical echogenicity and normal contour. No hydronephrosis. IMPRESSION: 1. Cholelithiasis with positive sonographic Velasquez sign. 2. No gallbladder wall thickening or pericholecystic fluid. 3. Common bile duct is mildly dilated measuring 0.7 cm in diameter. 4. Correlate for acute cholecystitis. Labs Test 08/11/25 16:36 Range/Units White Blood Count 11.8 H 4.4-10.8 10^3/uL Red Blood Count 5.66 H 4.0-5.20 10^6/uL Hemoglobin 16.1 12.2-16.2 g/dL Hematocrit 48.7 H 36.0-46.0 % Mean Corpuscular Volume 86.0 80.0-100.0 fL Mean Corpuscular Hemoglobin 28.5 28.0-32.0 pg Mean Corpuscular Hemoglobin Concent 33.1 32.0-36.0 g/dL Red Cell Distribution Width 14.4 H 11.8-14.3 % Platelet Count 335 140-450 10^3/uL Mean Platelet Volume 8.5 6.9-10.8 fL Neutrophils (%) (Auto) 81.8 H 37.0-80.0 % Lymphocytes (%) (Auto) 13.2 10.0-50.0 % Monocytes (%) (Auto) 4.4 0.0-12.0 % Eosinophils (%) (Auto) 0.2 0.0-7.0 % Basophils (%) (Auto) 0.4 0.0-2.0 % Neutrophils # (Auto) 9.7 H 1.6-8.6 10 ^3/uL Lymphocytes # (Auto) 1.6 0.4-5.4 10 ^3/uL Monocytes # (Auto) 0.5 0-1.3 10 ^3/uL Eosinophils # (Auto) 0 0-0.8 10 ^3/uL Basophils # (Auto) 0 0-0.2 10 ^3/uL Nucleated Red Blood Cells 0.1 % Sodium Level 138 136-145 mmol/L Potassium Level 3.6 3.5-5.1 mmol/L Chloride Level 105 98-107 mmol/L Carbon Dioxide Level 21 20-31 mmol/L Anion Gap 12 5-15 Blood Urea Nitrogen 6 L 9-23 mg/dL Creatinine 0.77 0.550-1.02 mg/dL Glomerular Filtration Rate Calc 96 >90 mL/min BUN/Creatinine Ratio 7.8 L 10.0-20.0 Serum Glucose 108 H 74-106 mg/dL Calcium Level 9.5 8.7-10.4 mg/dL Total Bilirubin 1.2 H 0.2-1.0 mg/dL Aspartate Amino Transferase (AST) 22 13-40 U/L Alanine Aminotransferase (ALT) 26 7-40 U/L Alkaline Phosphatase 145 H 46-116 U/L Total Protein 8.4 H 5.7-8.2 g/dL Albumin 4.4 3.2-4.8 g/dL Lipase 28 12-53 U/L SEPSIS Sepsis Screen Date sepsis recognized/suspect: Aug 11, 2025 Time Sepsis recognized/suspect: 1626 Recent Procedure: No On Antibiotic Therapy: No Respiratory Rate >20: No Heart Rate >90: No Temp<36 C (96.8 F) or >38.3 C: No SBP <90 or MAP <65 mmHG: No New Acute Mental Status Change: No Is the patient on CPAP, BIPAP,: No Physician Orders Urinalysis (08/11/25 16:27) Heplock Iv (08/11/25 ) Gallbladder (08/11/25 16:32) Nm Hida Scan (08/11/25 20:34) * Surgical Consult (08/11/25 ) Levofloxacin 500mg (Levaquin 500mg/ 100m (08/12/25 10:00) Metronidazole 500mg/100ml (Flagyl 500mg/ (08/11/25 22:00) Sodium Chloride 0.9% (08/11/25 20:45) Pantoprazole (Protonix) (08/12/25 10:00) Hydralazine Injection (Apresoline Inject (08/11/25 20:45) Ondansetron Hcl (Zofran) (08/11/25 20:45) Complete Blood Count (08/12/25 04:00) Comprehensive Metabolic Panel (08/12/25 04:00) Npo (Nothing By Mouth) Diet (08/12/25 Breakfast) Condition: Stable (08/11/25 20:34) Bedrest With Bathroom Privileg (08/11/25 20:34) Morphine Sulfate Injection (08/11/25 20:45) Admit (08/11/25 21:16) Vital Signs Date Time Temp Pulse Resp B/P (MAP) Pulse Ox O2 Delivery O2 Flow Rate FiO2 08/11/25 21:01 98.1 102 20 125/76 (92) 98 98.1 08/11/25 18:21 78 14 119/74 (89) 98 08/11/25 18:21 78 14 98 Room Air 08/11/25 17:49 188/103 08/11/25 16:54 69 20 185/90 08/11/25 16:24 97.3 64 16 208/93 100 97.3 Laboratory Tests Test 08/11/25 16:36 White Blood Count 11.8 10^3/uL (4.4-10.8) H Medications Medications Dose Ordered Sig/Shirley Route Start Time Stop Time Status Last Admin Dose Admin Ceftriaxone Sodium 50 ml @ 100 mls/hr ONCE ONCE IV 08/11/25 17:45 08/11/25 18:14 DC 08/11/25 19:37 100 MLS/HR Metronidazole 100 ml @ 100 mls/hr Q8HR IV 08/11/25 22:00 08/11/25 21:03 100 MLS/HR Pantoprazole Sodium 40 mg ONCE ONCE IV 08/11/25 20:45 08/11/25 20:57 DC 08/11/25 21:02 40 MG Sodium Chloride 1,000 ml @ 1,000 mls/hr Q1H ONCE IV 08/11/25 16:45 08/11/25 17:44 DC 08/11/25 17:26 1,000 MLS/HR Assessment/Plan Assessment/Plan Assessment Acute abdominal pain Rule out acute cholecystitis Hypertensive crisis Transaminitis Cholelithiasis Plan Admit the patient to [facility] to the hospitalist HIDA scan pending Rocephin/Flagyl Surgical consultation NPO Pain management As needed antihypertensives Continue treatment per orders. Plan discussed with: Patient My Orders Orders - ROSALES ATKINSON Procedure Category Date Status Time Nm Hida Scan NM 08/11/25 Logged 20:34 * Surgical Consult CONS 08/11/25 Transmitted Levofloxacin 500mg PHA 08/12/25 In Process (Levaquin 500mg/ 100m 10:00 Metronidazole PHA 08/11/25 In Process 500mg/100ml (Flagyl 22:00 Sodium Chloride 0.9% PHA 08/11/25 In Process 20:45 Pantoprazole PHA 08/12/25 In Process (Protonix) 10:00 Hydralazine Injection PHA 08/11/25 In Process (Apresoline Inject 20:45 Ondansetron Hcl PHA 08/11/25 In Process (Zofran) 20:45 Complete Blood Count LAB 08/12/25 Verified 04:00 Comprehensive LAB 08/12/25 Verified Metabolic Panel 04:00 Npo (Nothing By DIET 08/12/25 Transmitted Mouth) Diet Breakfast Condition: Stable JACQUI 08/11/25 In Process 20:34 Bedrest With Bathroom JACQUI 08/11/25 In Process Privileg 20:34 Morphine Sulfate PHA 08/11/25 In Process Injection 20:45 Admit ADMIT 08/11/25 Transmitted 21:16 Date of Service: Aug 11, 2025 Billing Provider: ROSALES ATKINSON Common Visit Codes: [id number] INP/OBS CARE (HIGH) ROSALES ATKINSON Aug 11, 2025 23:00
[2025-08-12] VITALS (8 sets, daily range): BP systolic 122–143; BP diastolic 82–99; PULSE 73–89; RESP 15–20; TEMP 97.2–98.6; O2SAT 96–100
[2025-08-12] MEDS: MORPHINE SULFATE INJ 2 MG/ml SYRG IV PRN (00:21)
[2025-08-12] MEDS: SODIUM CHLORIDE 0.9% 1,000 ML IV ONE (00:30)
[2025-08-12] MEDS ORDERED: IBU600T PO (01:06)
--- NOTE | 2025-08-12 09:57 | DVHINCON2 ---
Date of service: Aug 12, 2025 History of Present Illness 44-year-old female with a previous known history of gallstones admitted secondary to one day history of right upper quadrant abdominal pain associated with nausea and vomiting after eating fries. Currently patient denies any abdominal pain. Patient denies any fevers or chills. Past Medical History History of gallstones. Hypertension. Past Surgical History No abdominal surgeries Family History: Arthritis G8 MOTHER, Onset:40's - 50 Hypertension G8 FATHER, Onset:30's - 40 Family History Noncontributory Social History Occasional alcohol and marijuana. No tobacco. Allergies: Coded Allergies: Penicillins (Verified Allergy, Intermediate, 11/01/14) Home Meds Active Scripts Amlodipine Besylate (NORVASC TABLET) 5 Mg Tb, 5 MG PO DAILY for 90 Days, #90 TAB Prov:RUPERT MALDONADO RESIDENT 05/17/24 Meclizine HCl (Meclizine Hydrochloride) 25 Mg Tab, 25 MG PO [id number] PRN, #12 TAB 0 Refills Prov:KATIE OWEN [facility] 05/11/23 Acetaminophen (Tylenol) 325 Mg Tb, 325 MG PO Q4HPRN PRN, #30 TAB 0 Refills Take 1-2 caps po q4h prn for pain (Do not exceed 3,000mg of acetaminophen in 24 hours) Prov:KATIE OWEN [facility] 05/11/23 Reported Medications Ibuprofen Micronized (MOTRIN TABLET) 600 Mg Tb, 200 MG PO TID, #40 TAB *Black box warning-NSAIDS can increase risk of MA & hypertension, GI irritation, ulceration, bleed, perferation. Do not use post cardiac surgery. Use short duration/lowest effective dose. 08/12/25 Current Medications Current Medications Medications (Trade) Dose Ordered Sig/Shirley Route PRN Reason Start Time Stop Time Status Last Admin Levofloxacin/ Dextrose 100 ml @ 100 mls/hr DAILY IV 08/12/25 10:00 Metronidazole 100 ml @ 100 mls/hr Q8HR IV 08/11/25 22:00 08/12/25 05:42 Pantoprazole Sodium (Protonix) 40 mg DAILY IV 08/12/25 10:00 Hydralazine HCl (Apresoline Injection) 10 mg Q6HP PRN IV SBP>150 08/11/25 20:45 Ondansetron HCl (Zofran) 4 mg Q4HP PRN IV NAUSEA / VOMITING 08/11/25 20:45 Morphine Sulfate 2 mg Q4HPRN PRN IV SEVERE PAIN (7-10 PAIN SCALE) 08/11/25 20:45 08/12/25 00:21 Vital Signs Vital Signs Date Time Temp Pulse Resp B/P (MAP) Pulse Ox O2 Delivery O2 Flow Rate FiO2 08/12/25 08:00 Room Air* 0 21 08/12/25 05:22 97.6 74 19 128/83 (98) 99 97.6 Physical Exam GEN: Age-appropriate female in no acute distress. Alert. HEENT: Normocephalic atraumatic. Moist mucous membranes. Anicteric sclerae. CV: RRR Respiratory: CTAB ABD: Soft. Nontender nondistended. Abdominal ultrasound: Cholelithiasis. Common bile duct is 7 mm. No gallbladder wall thickening or pericholecystic fluid. Labs/Diagnostic Data Labs Test 08/11/25 16:36 Range/Units White Blood Count 11.8 H 4.4-10.8 10^3/uL Red Blood Count 5.66 H 4.0-5.20 10^6/uL Hemoglobin 16.1 12.2-16.2 g/dL Hematocrit 48.7 H 36.0-46.0 % Mean Corpuscular Volume 86.0 80.0-100.0 fL Mean Corpuscular Hemoglobin 28.5 28.0-32.0 pg Mean Corpuscular Hemoglobin Concent 33.1 32.0-36.0 g/dL Red Cell Distribution Width 14.4 H 11.8-14.3 % Platelet Count 335 140-450 10^3/uL Mean Platelet Volume 8.5 6.9-10.8 fL Neutrophils (%) (Auto) 81.8 H 37.0-80.0 % Lymphocytes (%) (Auto) 13.2 10.0-50.0 % Monocytes (%) (Auto) 4.4 0.0-12.0 % Eosinophils (%) (Auto) 0.2 0.0-7.0 % Basophils (%) (Auto) 0.4 0.0-2.0 % Neutrophils # (Auto) 9.7 H 1.6-8.6 10 ^3/uL Lymphocytes # (Auto) 1.6 0.4-5.4 10 ^3/uL Monocytes # (Auto) 0.5 0-1.3 10 ^3/uL Eosinophils # (Auto) 0 0-0.8 10 ^3/uL Basophils # (Auto) 0 0-0.2 10 ^3/uL Nucleated Red Blood Cells 0.1 % Sodium Level 138 136-145 mmol/L Potassium Level 3.6 3.5-5.1 mmol/L Chloride Level 105 98-107 mmol/L Carbon Dioxide Level 21 20-31 mmol/L Anion Gap 12 5-15 Blood Urea Nitrogen 6 L 9-23 mg/dL Creatinine 0.77 0.550-1.02 mg/dL Glomerular Filtration Rate Calc 96 >90 mL/min BUN/Creatinine Ratio 7.8 L 10.0-20.0 Serum Glucose 108 H 74-106 mg/dL Calcium Level 9.5 8.7-10.4 mg/dL Total Bilirubin 1.2 H 0.2-1.0 mg/dL Aspartate Amino Transferase (AST) 22 13-40 U/L Alanine Aminotransferase (ALT) 26 7-40 U/L Alkaline Phosphatase 145 H 46-116 U/L Total Protein 8.4 H 5.7-8.2 g/dL Albumin 4.4 3.2-4.8 g/dL Lipase 28 12-53 U/L Assessment 1. Chronic cholecystitis without acute component Plan/Recommendation 1. Recommended surgery. However patient refused at this time knowing that without surgery there is a good chance that she may develop future symptoms that may be even worse. The patient expressed verbal understanding however did not wished to proceed with the surgery. We will start liquid diet and if she tolerates it she will be okay to be discharged home. Plan discussed with: Patient GODWIN BOTELLO MD Aug 12, 2025 09:57
[2025-08-12] MEDS: PANTOPRAZOLE 40 MG/10 ML VIAL INJ IV SCH (10:12)
[2025-08-12 11:41] LABS: Hematocrit 43.3 % (36.0-46.0); Hemoglobin 14.0 g/dL (12.2-16.2); Mean Corpuscular Hemoglobin 28.3 pg (28.0-32.0); Mean Corpuscular Volume 87.4 fL (80.0-100.0); Nucleated Red Blood Cells % 0.1 %
[2025-08-12 11:58] LABS: Alanine Aminotransferase 16 U/L (7-40); Albumin 3.6 g/dL (3.2-4.8); Anion Gap 8 (5-15); BUN/Creatinine Ratio 8.2 (10.0-20.0); Carbon Dioxide 23 mmol/L (20-31); Chloride 105 mmol/L (98-107); Glucose 100 mg/dL (74-106); Potassium 3.7 mmol/L (3.5-5.1); Total Protein 6.7 g/dL (5.7-8.2)
[2025-08-12 12:00] LABS: Alkaline Phosphatase 122 U/L (46-116); Bilirubin, Total 1.9 mg/dL (0.2-1.0); Blood Urea Nitrogen 6 mg/dL (9-23); Calcium 8.0 mg/dL (8.7-10.4); Sodium 136 mmol/L (136-145)
[2025-08-12] MEDS: HYDROcodone-ACET 5/325MG TAB PO PRN (15:57)
--- NOTE | 2025-08-12 17:59 | DVHPN2 ---
Subjective BETTER Reviewed: Care Plan, H&P, Labs, Medications, Previous Orders, Radiology Changes from previous H/P or p: No Changes Objective Vitals Vital Signs Date Time Temp Pulse Resp B/P (MAP) Pulse Ox O2 Delivery O2 Flow Rate FiO2 08/12/25 17:00 98.3 89 16 143/99 (114) 96 98.3 08/12/25 08:00 Room Air* 0 21 Intake/Output Intake and Output 08/12/25 06:59 Intake Total 1150 ml Balance 1150 ml Intake Oral 0 ml IV Total 1150 ml General Appearance: Alert, Oriented X3, Cooperative, No acute distress HEENT: Atraumatic Lungs: Clear to auscultation Cardiovascular: Regular rate Abdomen: Normal bowel sounds, Soft Medications Current Medications Medications Dose Ordered Sig/Shirley Route Start Time Stop Time Status Last Admin Dose Admin Levofloxacin/ Dextrose 100 ml @ 100 mls/hr DAILY IV 08/12/25 10:00 08/12/25 10:12 100 MLS/HR Metronidazole 100 ml @ 100 mls/hr Q8HR IV 08/11/25 22:00 08/12/25 15:53 100 MLS/HR Pantoprazole Sodium 40 mg DAILY IV 08/12/25 10:00 08/12/25 10:12 40 MG Hydralazine HCl 10 mg Q6HP PRN IV 08/11/25 20:45 Ondansetron HCl 4 mg Q4HP PRN IV 08/11/25 20:45 Morphine Sulfate 2 mg Q4HPRN PRN IV 08/11/25 20:45 08/12/25 12:20 2 MG Acetaminophen/ Hydrocodone Bitart 1 tab Q4HPRN PRN PO 08/12/25 12:45 08/12/25 15:57 1 TAB Laboratory Results Laboratory Tests 08/12/25 11:26 Chemistry Test 08/12/25 11:26 Albumin 3.6 g/dL (3.2-4.8) Calcium Level 8.0 mg/dL (8.7-10.4) L Total Protein 6.7 g/dL (5.7-8.2) LFT Test 08/12/25 11:26 Alanine Aminotransferase (ALT) 16 U/L (7-40) Alkaline Phosphatase 122 U/L (46-116) H Aspartate Amino Transferase (AST) 15 U/L (13-40) Total Bilirubin 1.9 mg/dL (0.2-1.0) H Assessment/Plan Assessment/Plan Abdominal pain most likely secondary to acute cholecystitis Cholelithiasis Hypertension Plan: Patient declined surgery. HIDA scan still pending anyway. Continue current plan of care Plan discussed with: Patient My Orders Orders - MALI KANG MD Procedure Category Date Status Time Hydrocodone-Acet PHA 08/12/25 In Process 5/325mg Tab (Lilly 12:45 Soft Diet DIET 08/12/25 Transmitted Dinner Complete Blood Count LAB 08/13/25 Verified 06:00 Comprehensive LAB 08/13/25 Verified Metabolic Panel 06:00 Urinalysis LAB 08/12/25 Transmitted 17:57 Date of Service: Aug 12, 2025 Billing Provider: MALI KANG MD Common Visit Codes: [id number] INP/OBS CARE(HIGH) MALI KANG MD Aug 12, 2025 17:59
[2025-08-13] VITALS (7 sets, daily range): BP systolic 117–157; BP diastolic 72–94; PULSE 71–84; RESP 17–20; TEMP 97.5–98.2; O2SAT 96–100
[2025-08-13 05:18] LABS: Alanine Aminotransferase 14 U/L (7-40); Albumin 3.6 g/dL (3.2-4.8); Anion Gap 7 (5-15); BUN/Creatinine Ratio 10.0 (10.0-20.0); Bilirubin, Total 1.1 mg/dL (0.2-1.0); Carbon Dioxide 24 mmol/L (20-31); Chloride 104 mmol/L (98-107); Glucose 91 mg/dL (74-106); Potassium 3.8 mmol/L (3.5-5.1); Total Protein 6.8 g/dL (5.7-8.2)
[2025-08-13 05:24] LABS: Hematocrit 40.4 % (36.0-46.0); Hemoglobin 13.8 g/dL (12.2-16.2); Mean Corpuscular Hemoglobin 29.5 pg (28.0-32.0); Mean Corpuscular Volume 86.3 fL (80.0-100.0); Nucleated Red Blood Cells % 0.1 %
[2025-08-13 05:41] LABS: Alkaline Phosphatase 121 U/L (46-116); Blood Urea Nitrogen 7 mg/dL (9-23); Calcium 8.2 mg/dL (8.7-10.4); Sodium 135 mmol/L (136-145)
[2025-08-13 08:28] LABS: Urine Protein, UAD Negative (Negative)
--- NOTE | 2025-08-13 15:31 | DVHPN2 ---
Subjective BETTER Reviewed: Care Plan, H&P, Labs, Medications, Previous Orders, Radiology Changes from previous H/P or p: No Changes Objective Vitals Vital Signs Date Time Temp Pulse Resp B/P (MAP) Pulse Ox O2 Delivery O2 Flow Rate FiO2 08/13/25 13:00 98.0 84 17 157/91 (113) 96 98.0 08/13/25 08:00 Room Air* 0 21 Intake/Output Intake and Output 08/13/25 07:00 Intake Total 1940 ml Balance 1940 ml Intake Oral 1840 ml IV Total 100 ml # Voids 3 General Appearance: Alert, Oriented X3, Cooperative, No acute distress HEENT: Atraumatic Lungs: Clear to auscultation Cardiovascular: Regular rate Abdomen: Normal bowel sounds, Soft Medications Current Medications Medications Dose Ordered Sig/Shirley Route Start Time Stop Time Status Last Admin Dose Admin Levofloxacin/ Dextrose 100 ml @ 100 mls/hr DAILY IV 08/12/25 10:00 08/13/25 08:04 100 MLS/HR Metronidazole 100 ml @ 100 mls/hr Q8HR IV 08/11/25 22:00 08/13/25 14:52 100 MLS/HR Pantoprazole Sodium 40 mg DAILY IV 08/12/25 10:00 08/13/25 08:04 40 MG Hydralazine HCl 10 mg Q6HP PRN IV 08/11/25 20:45 Ondansetron HCl 4 mg Q4HP PRN IV 08/11/25 20:45 Morphine Sulfate 2 mg Q4HPRN PRN IV 08/11/25 20:45 08/12/25 12:20 2 MG Acetaminophen/ Hydrocodone Bitart 1 tab Q4HPRN PRN PO 08/12/25 12:45 08/13/25 08:04 1 TAB Laboratory Results Laboratory Tests 08/13/25 04:43 Chemistry Test 08/13/25 04:43 Albumin 3.6 g/dL (3.2-4.8) Calcium Level 8.2 mg/dL (8.7-10.4) L Total Protein 6.8 g/dL (5.7-8.2) LFT Test 08/13/25 04:43 Alanine Aminotransferase (ALT) 14 U/L (7-40) Alkaline Phosphatase 121 U/L (46-116) H Aspartate Amino Transferase (AST) 14 U/L (13-40) Total Bilirubin 1.1 mg/dL (0.2-1.0) H Urinalysis Test 08/13/25 07:55 Urine Color Yellow (Yellow) Urine Clarity Clear (Clear) Urine pH 6.5 (5.0-9.0) Urine Specific [place] 1.019 (1.001-1.035) Urine Protein Negative (Negative) Urine Ketones Negative (Negative) Urine Blood Negative /uL (Negative) Urine Nitrite Negative (Negative) Urine Bilirubin Negative (Negative) Urine Urobilinogen Normal mg/dL (Negative) Urine Leukocyte Esterase 2+ /uL (Negative) Urine RBC 2 /hpf (0 - 4) Urine Microscopic WBC 22 /HPF (0-5) H Urine Squamous Epithelial Cells Few /hpf (<5) Urine Bacteria Few /hpf (None Seen) H Urine Glucose Normal mg/dL (Normal) Assessment/Plan Assessment/Plan Abdominal pain most likely secondary to acute cholecystitis Cholelithiasis Hypertension Plan: Continue current plan of care. Patient might go for surgery of the HIDA scan is positive tomorrow. Further plan per orders Plan discussed with: Patient Date of Service: Aug 13, 2025 Billing Provider: MALI KANG MD Common Visit Codes: [id number] INP/OBS CARE(HIGH) MALI KANG MD Aug 13, 2025 15:31
[2025-08-14 00:53] VITALS: BP 139/88; PULSE 69; RESP 18; TEMP 97.9; O2SAT 97
[2025-08-14 05:15] VITALS: BP 131/83; PULSE 79; RESP 16; TEMP 97.9; O2SAT 98
[2025-08-14 08:05] VITALS: PULSE 68; RESP 18; O2SAT 95
[2025-08-14 09:00] VITALS: BP 127/86; PULSE 79; RESP 16; TEMP 97.9; O2SAT 98
[2025-08-14 13:00] VITALS: BP 133/89; PULSE 70; RESP 12; TEMP 97.3; O2SAT 100
--- NOTE | 2025-08-14 13:30 | DVH ---
Procedure: NM NM HIDA SCAN Exam Date: 08/14/2025 12:03 PM Clinical History: r/o cholecystitis Comparison Study: US GALLBLADDER on DOS: 08/11/25, US GALLBLADDER on DOS: 05/15/24, CT ABD PELVIS WO CO NTRAST on DOS: 08/05/20 Nuclear Medicine Hepatobiliary Scan. Technique: Following the intravenous administration of 6 mCi of technetium 99m labeled Choletec multiple planar abdominal planar images were obtained in anterior projection in 5 minute intervals for45 minutes . Ri ght lateral images were obtained at 45 minutes after injection. Findings: The liver appears grossly normal in size. There is no abnormal persistence of the cardiac or blood po ol activity. There is prompt visualization of the gallbladder and excretion of activity into the smal l bowel. Impression: Unremarkable hepatobiliary study without evidence of acute cholecystitis.
[2025-08-14] MEDS ORDERED: AUG875T PO (15:55)
--- NOTE | 2025-08-14 15:56 | DVHDS2 ---
Discharge Summary Date of Admission Aug 11, 2025 at 21:16 Date of Discharge: Aug 14, 2025 Labs/Diagnostic Data: Laboratory Results Test 08/13/25 07:55 08/13/25 04:43 08/11/25 16:36 Urine Color Yellow (Yellow) Urine Clarity Clear (Clear) Urine pH 6.5 (5.0-9.0) Urine Specific [place] 1.019 (1.001-1.035) Urine Protein Negative (Negative) Urine Ketones Negative (Negative) Urine Blood Negative /uL (Negative) Urine Nitrite Negative (Negative) Urine Bilirubin Negative (Negative) Urine Urobilinogen Normal mg/dL (Negative) Urine Leukocyte Esterase 2+ /uL (Negative) Urine RBC 2 /hpf (0 - 4) Urine Microscopic WBC 22 /HPF (0-5) Urine Squamous Epithelial Cells Few /hpf (<5) Urine Bacteria Few /hpf (None Seen) Urine Glucose Normal mg/dL (Normal) White Blood Count 7.9 10^3/uL (4.4-10.8) Red Blood Count 4.68 10^6/uL (4.0-5.20) Hemoglobin 13.8 g/dL (12.2-16.2) Hematocrit 40.4 % (36.0-46.0) Mean Corpuscular Volume 86.3 fL (80.0-100.0) Mean Corpuscular Hemoglobin 29.5 pg (28.0-32.0) Mean Corpuscular Hemoglobin Concent 34.2 g/dL (32.0-36.0) Red Cell Distribution Width 14.3 % (11.8-14.3) Platelet Count 296 10^3/uL (140-450) Mean Platelet Volume 8.5 fL (6.9-10.8) Neutrophils (%) (Auto) 67.7 % (37.0-80.0) Lymphocytes (%) (Auto) 23.9 % (10.0-50.0) Monocytes (%) (Auto) 7.5 % (0.0-12.0) Eosinophils (%) (Auto) 0.7 % (0.0-7.0) Basophils (%) (Auto) 0.2 % (0.0-2.0) Neutrophils # (Auto) 5.3 10 ^3/uL (1.6-8.6) Lymphocytes # (Auto) 1.9 10 ^3/uL (0.4-5.4) Monocytes # (Auto) 0.6 10 ^3/uL (0-1.3) Eosinophils # (Auto) 0.1 10 ^3/uL (0-0.8) Basophils # (Auto) 0 10 ^3/uL (0-0.2) Nucleated Red Blood Cells 0.1 % Sodium Level 135 mmol/L (136-145) Potassium Level 3.8 mmol/L (3.5-5.1) Chloride Level 104 mmol/L (98-107) Carbon Dioxide Level 24 mmol/L (20-31) Anion Gap 7 (5-15) Blood Urea Nitrogen 7 mg/dL (9-23) Creatinine 0.70 mg/dL (0.550-1.02) Glomerular Filtration Rate Calc 108 mL/min (>90) BUN/Creatinine Ratio 10.0 (10.0-20.0) Serum Glucose 91 mg/dL (74-106) Calcium Level 8.2 mg/dL (8.7-10.4) Total Bilirubin 1.1 mg/dL (0.2-1.0) Aspartate Amino Transferase (AST) 14 U/L (13-40) Alanine Aminotransferase (ALT) 14 U/L (7-40) Alkaline Phosphatase 121 U/L (46-116) Total Protein 6.8 g/dL (5.7-8.2) Albumin 3.6 g/dL (3.2-4.8) Lipase 28 U/L (12-53) Other Laboratory Tests 08/13/25 04:43 Brief Hx & Hospital Course: 44-year-old female presents for evaluation of abdominal pain. Patient endorses a one day history of sharp right upper quadrant abdominal pain that radiates to her back. She reports being diagnosed with gallstones in the past. She also reports having episodes of nausea with vomiting and some chills. Patient was also noted to be hypertensive on arrival to the emergency department. Denies headache or blurred vision. No other acute complaints reported. 08/14: Patient notes she presented with right upper quadrant pain, initial right upper quadrant ultrasound concerning for cholelithiasis with positive Velasquez's sign. Common bile duct also mildly dilated with 0.7 cm diameter. Recommended clinical correlation for acute cholecystitis. Surgery was consulted recommended cholecystectomy but patient declined. Patient will remain on IV antibiotics. Patient also had a mild white count leukocytosis. T bili also remain elevated trending from 1.2-1 0.9-1.1. ALP mildly elevated. Possible patient has Gilbert versus PVC, recommend outpatient workup. Patient continues to improve tolerating p.o.. Surgery recommends clear liquid diet and discharge if stable. Today HIDA scan is done and is negative for any acute cholecystitis. Vital signs stable, stable for discharge as per plan below. Diagnosis: Symptomatic cholelithiasis, surgery declined Acute cholecystitis, ruled out Leukocytosis, low-grade Tachycardia Tachypnea Sirs without AOD Hyperbilirubinemia, mild ALP elevated Concern for an acute cystitis Plan: -Augmentin 875 mg twice daily for 5 days -Continue regular diet -Continue other home medications not mentioned above. -Follow up with PCP to review discharge and symptom check Condition at Discharge: Fair Final Diagnosis/Problems List Symptomatic cholelithiasis, surgery declined Acute cholecystitis, ruled out Leukocytosis, low-grade Tachycardia Tachypnea Sirs without AOD Hyperbilirubinemia, mild ALP elevated Concern for an acute cystitis Discharge Disposition: Home Discharge Instruct/Medications Scheduled Amlodipine Besylate (Norvasc Tablet), 5 MG PO DAILY Ibuprofen Micronized (Motrin Tablet), 200 MG PO TID, (Reported) Scheduled PRN Acetaminophen (Tylenol), 325 MG PO Q4HPRN PRN Meclizine HCl (Meclizine Hydrochloride), 25 MG PO [id number] PRN Discharge Statement: "Patient was advised to return to the ER or call 911 if any headaches, dizziness, shortness of breath, chest pain, abdominal pain, bleeding, fevers, or worsening of medical condition. Patient was counseled about treatment plan, medications, possible side effects, patientverbalized understanding. All questions were answered to the best of my ability. This discharge took greater then 30 minutes in planning, reviewing documentation, counseling the patient, and discussing with other team members." ASSESSMENT ASSESSMENT Assessment Date of Service: Aug 14, 2025 Billing Provider: ALIE YANES MD Common Visit Codes: [id number] DISCH DAY >30min ALIE YANES MD Aug 14, 2025 15:56
[2025-08-14 17:00] VITALS: BP 164/106; PULSE 73; RESP 18; TEMP 97.6; O2SAT 98
== END 2025-08-14 18:49 | disposition home or self-care (01) ==
LOC: ER 16:20 → OVERFLOW 21:16 → EAST 23:39
PROVIDERS: ADMIT Student in an Organized Health Care Education/Training Program; ATTEND Student in an Organized Health Care Education/Training Program
DX: K80.20 Calculus of gallbladder without cholecystitis without obstruction (principal); I16.9 Hypertensive crisis, unspecified; E80.6 Other disorders of bilirubin metabolism; N30.00 Acute cystitis without hematuria; R65.10 Systemic inflammatory response syndrome (SIRS) of non-infectious origin without acute organ dysfunction; I10 Essential (primary) hypertension; R74.01 Elevation of levels of liver transaminase levels; Z88.0 Allergy status to penicillin; Z82.49 Family history of ischemic heart disease and other diseases of the circulatory system
CPT/HCPCS: 36415; 76705; 78226; 80053; 81001; 83690; 85025; 96361; 96365; 96367; 96375; G0378; J1956; J2405; J2470; J3490

== ENCOUNTER 2025-09-20 00:52 | Inpatient (IN) | payer MEDICAID ==
[~2025-09-20] VITALS: Ht 170.2 cm; Wt 85.7 kg
[~2025-09-20 00:52] MED LIST changes: +AUG875T PO; +IBU600T PO
--- NOTE | 2025-09-20 01:16 | ED.PDOC ---
GI ASSESSMENT HPI Comments 44-year-old female with a history of known gallstones now complains of right upper quadrant sharp pain for the last 2 days with nausea and malaise. Patient also noted that her blood pressure was elevated. Chief Complaint: Abdominal Pain Time Seen by MD: 01:02 Primary Care Provider: NONE Allergies: Coded Allergies: Penicillins (Verified Allergy, Intermediate, 11/01/14) Home Meds Active Scripts Amoxicillin & Pot Clavulanate (AUGMENTIN TABLET) 875 Mg Tb, 875 MG PO BID for 5 Days, #10 TAB 0 Refills Prov:ALIE YANES MD 08/14/25 Amlodipine Besylate (NORVASC TABLET) 5 Mg Tb, 5 MG PO DAILY for 90 Days, #90 TAB Prov:RUPERT MALDONADO 05/17/24 Meclizine HCl (Meclizine Hydrochloride) 25 Mg Tab, 25 MG PO [id number] PRN, #12 TAB 0 Refills Prov:KATIE OWEN [facility] 05/11/23 Acetaminophen (Tylenol) 325 Mg Tb, 325 MG PO Q4HPRN PRN, #30 TAB 0 Refills Take 1-2 caps po q4h prn for pain (Do not exceed 3,000mg of acetaminophen in 24 hours) Prov:KATIE OWEN [facility] 05/11/23 Reported Medications Ibuprofen Micronized (MOTRIN TABLET) 600 Mg Tb, 200 MG PO TID, #40 TAB *Black box warning-NSAIDS can increase risk of IN & hypertension, GI irritation, ulceration, bleed, perferation. Do not use post cardiac surgery. Use short duration/lowest effective dose. 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 Family History Family History: Reviewed,noncontributory to illness, Family hx of HTN Social History Smoker: Non-Smoker Alcohol: Rarely Drugs: Marijuana Lives In: Home Constitutional: reports: malaise Gastrointestinal: reports: abdominal pain, nausea All Other Systems: Reviewed and Negative Physical Exam General Appearance: Moderate Distress HEENT: Normal ENT Inspection, Pharynx Normal, TMs Normal Neck: Full Range of Motion, Non-Tender, Normal, Normal Inspection Respiratory: Chest Non-Tender, Lungs Clear, No Accessory Muscle Use, No Respiratory Distress, Normal Breath Sounds Cardiovascular: No Edema, No JVD, No Murmur, No Gallop, Normal Peripheral Pulses, Regular Rate/Rhythm Breast Exam: Deferred Gastrointestinal: RUQ, Tenderness Genitalia: Deferred Pelvic: Deferred Rectal: Deferred Extremities: No calf tenderness, Normal capillary refill, Normal inspection, Normal range of motion, Non-tender, No pedal edema Musculoskeletal : Apperance: Normal Neurologic: Alert, hydraulic plumber helper II-XII nml as Tested, No Motor Deficits, Normal Affect, Normal Mood, No Sensory Deficits Cerebellar Function: Normal Reflexes: Normal Skin: Dry, Normal Color, Warm Lymphatic: No Adenopathy Was a procedure done? Was a procedure done?: No GI differential Dx Differential Diagnosis: AAA, Appendicitis, Bowel Obstruction, Cholangitis, Cholecystitis, Diverticular disease, Gastritis/PUD, Gastroenteritis, GI hemorrhage, Inflammatory BD, Ischemic Bowel, Dehydration, Kidney Stone, Other X-Ray, Labs, Meds, VS Vital Signs Date Time Temp Pulse Resp B/P (MAP) Pulse Ox O2 Delivery O2 Flow Rate FiO2 09/20/25 03:23 97.7 68 17 146/75 (98) 100 97.7 09/20/25 03:21 68 16 146/75 09/20/25 01:53 Room Air* 0 21 09/20/25 01:48 67 18 190/118 09/20/25 01:47 190/118 09/20/25 01:45 67 20 190/118 (142) 100 09/20/25 00:53 97.4 71 26 210/126 100 97.4 Lab Test 09/20/25 02:47 09/20/25 01:24 Range/Units Troponin I High Sensitivity < 3 L < 3 L </=34 ng/L White Blood Count 13.9 H 4.4-10.8 10^3/uL Red Blood Count 6.19 H 4.0-5.20 10^6/uL Hemoglobin 17.5 H 12.2-16.2 g/dL Hematocrit 52.8 H 36.0-46.0 % Mean Corpuscular Volume 85.3 80.0-100.0 fL Mean Corpuscular Hemoglobin 28.2 28.0-32.0 pg Mean Corpuscular Hemoglobin Concent 33.1 32.0-36.0 g/dL Red Cell Distribution Width 13.6 11.8-14.3 % Platelet Count 366 140-450 10^3/uL Mean Platelet Volume 8.2 6.9-10.8 fL Neutrophils (%) (Auto) 84.1 H 37.0-80.0 % Lymphocytes (%) (Auto) 12.0 10.0-50.0 % Monocytes (%) (Auto) 3.6 0.0-12.0 % Eosinophils (%) (Auto) 0.1 0.0-7.0 % Basophils (%) (Auto) 0.2 0.0-2.0 % Neutrophils # (Auto) 11.7 H 1.6-8.6 10 ^3/uL Lymphocytes # (Auto) 1.7 0.4-5.4 10 ^3/uL Monocytes # (Auto) 0.5 0-1.3 10 ^3/uL Eosinophils # (Auto) 0 0-0.8 10 ^3/uL Basophils # (Auto) 0 0-0.2 10 ^3/uL Nucleated Red Blood Cells 0.0 % Sodium Level 136 136-145 mmol/L Potassium Level 3.8 3.5-5.1 mmol/L Chloride Level 101 98-107 mmol/L Carbon Dioxide Level 22 20-31 mmol/L Anion Gap 13 5-15 Blood Urea Nitrogen 7 L 9-23 mg/dL Creatinine 0.71 0.550-1.02 mg/dL Glomerular Filtration Rate Calc 106 >90 mL/min BUN/Creatinine Ratio 9.9 L 10.0-20.0 Serum Glucose 110 H 74-106 mg/dL Calcium Level 10.1 8.7-10.4 mg/dL Total Bilirubin 2.0 H 0.2-1.0 mg/dL Aspartate Amino Transferase (AST) 27 13-40 U/L Alanine Aminotransferase (ALT) 31 7-40 U/L Alkaline Phosphatase 168 H 46-116 U/L Total Protein 9.5 H 5.7-8.2 g/dL Albumin 5.0 H 3.2-4.8 g/dL Lipase 34 12-53 U/L Current Medications Medications (Trade) Dose Ordered Sig/Shirley Route Start Time Stop Time Status Last Admin Hydromorphone HCl (Dilaudid Injection) 1 mg ONCE ONCE IV 09/20/25 01:15 09/20/25 01:16 DC 09/20/25 01:48 Ondansetron HCl (Zofran) 4 mg ONCE ONCE IV 09/20/25 01:15 09/20/25 01:16 DC 09/20/25 01:48 Hydralazine HCl (Apresoline Injection) 20 mg ONCE ONCE IV 09/20/25 01:15 09/20/25 01:16 DC 09/20/25 01:47 Time of 1ST Reevaluation: 01:15 Reevaluation 1ST: Unchanged Patient Education/Counseling: Diagnosis, Treatment Family Education/Counseling: No Family Present SEPSIS Sepsis Screen Date sepsis recognized/suspect: Sep 20, 2025 Time Sepsis recognized/suspect: 57 Recent Procedure: No On Antibiotic Therapy: No Respiratory Rate >20: Yes Heart Rate >90: Yes Temp<36 C (96.8 F) or >38.3 C: No SBP <90 or MAP <65 mmHG: No New Acute Mental Status Change: No Is the patient on CPAP, BIPAP,: No Physician Orders Troponin-I Hs (09/20/25 06:00) Troponin-I Hs (09/20/25 09:00) Gallbladder (09/20/25 01:09) Vital Signs Date Time Temp Pulse Resp B/P (MAP) Pulse Ox O2 Delivery O2 Flow Rate FiO2 09/20/25 03:23 97.7 68 17 146/75 (98) 100 97.7 09/20/25 03:21 68 16 146/75 09/20/25 01:53 Room Air* 0 21 09/20/25 01:48 67 18 190/118 09/20/25 01:47 190/118 09/20/25 01:45 67 20 190/118 (142) 100 09/20/25 00:53 97.4 71 26 210/126 100 97.4 Laboratory Tests Test 09/20/25 01:24 White Blood Count 13.9 10^3/uL (4.4-10.8) H Medications Medications Dose Ordered Sig/Shirley Route Start Time Stop Time Status Last Admin Dose Admin Hydralazine HCl 20 mg ONCE ONCE IV 09/20/25 01:15 09/20/25 01:16 DC 09/20/25 01:47 Hydromorphone HCl 1 mg ONCE ONCE IV 09/20/25 01:15 09/20/25 01:16 DC 09/20/25 01:48 Ondansetron HCl 4 mg ONCE ONCE IV 09/20/25 01:15 09/20/25 01:16 DC 09/20/25 01:48 Departure 1 Departure Time of Disposition: 03:54 Impression: Primary Impression: Accelerated hypertension Additional Impressions: Gallstones Acute abdominal pain Disposition: ADMITTED INPATIENT Admit to: Tele Condition: Guarded Discharged With: Self Comments 44-year-old male with gallstones. Her on lab review her white blood cell count is elevated at 13.6. Her bilirubin and LFTs are elevated. Ultrasound shows gallstones but no clear signs of cholecystitis. Patient's blood pressure is also quite elevated. Patient will need to be admitted for supportive care and further workup. Critical Care Note Critical Care Time?: Yes (35 min-critical care time only) Critical care comment: Total critical care time: Approximately 36 minutes Due to a high probability of clinically significant, life threatening deterioration, the patient required my highest level of preparedness to intervene emergently and I personally spent this critical care time directly and personally managing the patient. This critical care time included obtaining a history; examining the patient; pulse oximetry; ordering and review of studies; arranging urgent treatment with development of a management plan; evaluation of patient's response to treatment; frequent reassessment; and, discussions with other providers. This critical care time was performed to assess and manage the high probability of imminent, life-threatening deterioration that could result in multi-organ failure. It was exclusive of separately billable procedures and treating other patients. Stability Stability form required: No Heart Score Heart Score: Heart Score Response (Comments) Value History Slightly Suspicious 0 EKG Normal 0 Age 45-64 1 Risk Factors 1 or 2 risk factors 1 Troponin Normal limit 0 Total 2 LORENA RODGERS MD Sep 20, 2025 01:16
[2025-09-20 01:44] LABS: Hematocrit 52.8 % (36.0-46.0); Hemoglobin 17.5 g/dL (12.2-16.2); Mean Corpuscular Hemoglobin 28.2 pg (28.0-32.0); Mean Corpuscular Volume 85.3 fL (80.0-100.0); Nucleated Red Blood Cells % 0.0 %
[2025-09-20] MEDS: hydrALAZINE HCL 20 MG/ML VL IV ONE ×2 (01:47→07:21)
[2025-09-20] MEDS: HYDROmorphone HCL 2 MG/ML VL/or syr IV ONE ×2 (01:48→05:00)
[2025-09-20] MEDS: ONDANSETRON HCL 4 MG/2 ML VIAL IV ONE (01:48)
[2025-09-20] MEDS: ONDANSETRON ODT 4 MG TAB PO ONE (01:52)
[2025-09-20 02:20] LABS: Alanine Aminotransferase 31 U/L (7-40); Anion Gap 13 (5-15); BUN/Creatinine Ratio 9.9 (10.0-20.0); Calcium 10.1 mg/dL (8.7-10.4); Carbon Dioxide 22 mmol/L (20-31); Chloride 101 mmol/L (98-107); Lipase 34 U/L (12-53); Potassium 3.8 mmol/L (3.5-5.1)
[2025-09-20 02:22] LABS: Albumin 5.0 g/dL (3.2-4.8); Alkaline Phosphatase 168 U/L (46-116); Bilirubin, Total 2.0 mg/dL (0.2-1.0); Blood Urea Nitrogen 7 mg/dL (9-23); Glucose 110 mg/dL (74-106); Sodium 136 mmol/L (136-145); Total Protein 9.5 g/dL (5.7-8.2)
--- NOTE | 2025-09-20 02:48 | DVH ---
INDICATION: abd pain TECHNIQUE: Multiple real-time sonographic images were obtained of the right upper quadrant. COMPARISON: NM NM HIDA SCAN on DOS: 08/14/25, US GALLBLADDER on DOS: 08/11/25, US GALLBLADDER on DOS: 05/15/24, CT ABD PELVIS WO CONTRAST on DOS: 08/05/20 FINDINGS: The liver demonstrates normal homogeneous echotexture without focal mass lesions. The liver measures 15.5 cm. Normal hepatopetal portal venous flow appreciated. No evidence of pleural effusion or abdominal ascites. There is no intrahepatic or extrahepatic ductal dilatation. The common duct measures 0.6 cm. Mobile gallstones within the distended gallbladder. The gallbladder wall measures 0.2 cm and is within normal limits. Negative sonographic sweeney's sign. The right kidney measures 12.2 cm. The right kidney is normal in contour, size, and shape. The echogenicity is normal. There is no hydronephrosis. The pancreas is not well visualized due to overlying bowel gas. IMPRESSION: 1. Cholelithiasis without sonographic evidence of acute cholecystitis.
[2025-09-20 05:04] VITALS: O2SAT 98
--- NOTE | 2025-09-20 05:43 | DVHHPRES ---
History of Present Illness Resident Creating Document: HERMINIA HOPSON RESIDENT History of Present Illness 43-year-old female with history of hypertension and gallstones, came to the ED with a chief complaints of right upper quadrant abdominal pain. Patient reports that she had eaten grant and eggs in the morning, after which she had acute onset of sharp right upper quadrant pain, 10/10 intensity, radiating to the back, with no aggravating or relieving factors, associated with 3 episodes of watery, nonbloody emesis and chills. She also mentions that she has been under a lot of stress lately and had shortness of breath and pressure-like feeling in her chest which lasted a few minutes and went away after the abdominal pain started. She denies any chest pain, palpitations, nausea, fever, urinary symptoms, GERD symptoms. Patient also reports that she went to [facility] to check her BP after the pressing sensation in her chest and was told her BP was very high and to visit the ED. She reports has not been able to find a PCP and has run out of BP medication( amlodipine 5 mg) for 1 month. On admission her blood pressure was 190/118 mmHg, temp 97.8, pulse 67, SpO2 98% in room air. WBC count was 13.9, Tropes were negative, lipase 34, ultrasound shows cholelithiasis without sonographic evidence of acute cholecystitis. We are admitting the patient for further workup and management. PMH: Hypertension, cholelithiasis, acute cholecystitis , right rotator cuff tear past surgical history: none Family history: Reviewed, noncontributory of the management of this case Social history: Patient used to smoke 1 and half pack of cigarettes per day for few years, quit 1 year ago and vapes nicotine once in awhile; denies alcohol u se, smokes marijuana a few puffs once in a while to sleep Allergies: Penicillin PCP: Does not have 1 Code status: Full code Review of Systems Constitutional: No: Fever, Chills, Sweats, Weakness, Malaise, Other Eyes: No: Pain, Vision change, Conjunctivae inflammation, Eyelid inflammation, Other, Redness ENT: No: Ear pain, Ear discharge, Nose pain, Nose discharge, Nose congestion, Mouth pain, Mouth swelling, Throat pain, Throat swelling, Other Respiratory: No: Cough, Dry, Shortness of breath, SOB with excertion, Wheezing, Hemoptysis, Pleuritic Pain, Sputum, Wheezing, Other Cardiovascular: No: Chest Pain, Palpitations, Orthopnea, Paroxysmal Noc. Dyspnea, Edema, Lt Headedness, Other Gastrointestinal: Vomiting, Abdominal Pain; No: Nausea, Diarrhea, Constipation, Melena, Hematochezia, Other Genitourinary: No Dysuria, No Frequency, No Incontinence, No Hematuria, No Retention, No Other Musculoskeletal: No: other, neck pain, shoulder pain, arm pain, back pain, hand pain, leg pain, foot pain Skin: No: Rash, Lesions, Jaundice, Bruising, Other Neurological: No: Weakness, Numbness, Incoordination, Change in speech, Confusion, Seizures, Other Allergies: Coded Allergies: Penicillins (Verified Allergy, Intermediate, 11/01/14) Medications Current Medications Medications Dose Ordered Sig/Shirley Route Start Time Stop Time Status Last Admin Dose Admin Ondansetron HCl 4 mg Q4HP PRN IV 09/20/25 05:00 Ceftriaxone Sodium 50 ml @ 100 mls/hr DAILY@09 IV 09/21/25 09:00 Hydromorphone HCl 0.5 mg Q4HPRN PRN IV 09/20/25 05:00 Losartan Potassium 25 mg DAILY PO 09/20/25 10:00 Metronidazole 100 ml @ 100 mls/hr Q8HR IV 09/20/25 06:00 Pantoprazole Sodium 40 mg DAILY IV 09/20/25 10:00 UNV Exam Vital Signs Vital Signs Date Time Temp Pulse Resp B/P (MAP) Pulse Ox O2 Delivery O2 Flow Rate FiO2 09/20/25 05:04 98 Room Air* 0 21 09/20/25 04:30 97.8 72 12 172/106 (128) 97.8 Exam Pt is lying on bed General Appearance: Alert, Oriented X3, Cooperative, in mild distress HEENT: Atraumatic, Mucous membranes moist/pink Respiratory: Clear to auscultation, Normal air movement, No added sounds Cardiovascular: Regular rate, Normal S1, Normal S2, No murmurs Abdominal: Active bowel sounds, Soft, no distention, mild tenderness in right upper quadrant on palpation Extremities: No edema, Normal pulses, tenderness in right shoulder on palpation, patient unable move shoulder on passive and active abduction Skin: No Significant rash, except past surgical scars Neuro: Normal speech, sensorimotor deficits none Psych/Mental Status: Mental status NL, Mood NL Nurse was there as boiler testing technician during examination Labs/Xrays Labs Test 09/20/25 02:47 09/20/25 01:24 Range/Units Troponin I High Sensitivity < 3 L </=34 ng/L White Blood Count 13.9 H 4.4-10.8 10^3/uL Red Blood Count 6.19 H 4.0-5.20 10^6/uL Hemoglobin 17.5 H 12.2-16.2 g/dL Hematocrit 52.8 H 36.0-46.0 % Mean Corpuscular Volume 85.3 80.0-100.0 fL Mean Corpuscular Hemoglobin 28.2 28.0-32.0 pg Mean Corpuscular Hemoglobin Concent 33.1 32.0-36.0 g/dL Red Cell Distribution Width 13.6 11.8-14.3 % Platelet Count 366 140-450 10^3/uL Mean Platelet Volume 8.2 6.9-10.8 fL Neutrophils (%) (Auto) 84.1 H 37.0-80.0 % Lymphocytes (%) (Auto) 12.0 10.0-50.0 % Monocytes (%) (Auto) 3.6 0.0-12.0 % Eosinophils (%) (Auto) 0.1 0.0-7.0 % Basophils (%) (Auto) 0.2 0.0-2.0 % Neutrophils # (Auto) 11.7 H 1.6-8.6 10 ^3/uL Lymphocytes # (Auto) 1.7 0.4-5.4 10 ^3/uL Monocytes # (Auto) 0.5 0-1.3 10 ^3/uL Eosinophils # (Auto) 0 0-0.8 10 ^3/uL Basophils # (Auto) 0 0-0.2 10 ^3/uL Nucleated Red Blood Cells 0.0 % Sodium Level 136 136-145 mmol/L Potassium Level 3.8 3.5-5.1 mmol/L Chloride Level 101 98-107 mmol/L Carbon Dioxide Level 22 20-31 mmol/L Anion Gap 13 5-15 Blood Urea Nitrogen 7 L 9-23 mg/dL Creatinine 0.71 0.550-1.02 mg/dL Glomerular Filtration Rate Calc 106 >90 mL/min BUN/Creatinine Ratio 9.9 L 10.0-20.0 Serum Glucose 110 H 74-106 mg/dL Calcium Level 10.1 8.7-10.4 mg/dL Total Bilirubin 2.0 H 0.2-1.0 mg/dL Aspartate Amino Transferase (AST) 27 13-40 U/L Alanine Aminotransferase (ALT) 31 7-40 U/L Alkaline Phosphatase 168 H 46-116 U/L Total Protein 9.5 H 5.7-8.2 g/dL Albumin 5.0 H 3.2-4.8 g/dL Lipase 34 12-53 U/L SEPSIS Sepsis Screen Date sepsis recognized/suspect: Sep 20, 2025 Time Sepsis recognized/suspect: 329 Recent Procedure: No On Antibiotic Therapy: No Respiratory Rate >20: No Heart Rate >90: No Temp<36 C (96.8 F) or >38.3 C: No SBP <90 or MAP <65 mmHG: No New Acute Mental Status Change: No Is the patient on CPAP, BIPAP,: No Physician Orders Troponin-I Hs (09/20/25 06:00) Troponin-I Hs (09/20/25 09:00) Gallbladder (09/20/25 01:09) Admit (09/20/25 04:58) Code Status (09/20/25 04:58) Ondansetron Hcl (Zofran) (09/20/25 05:00) Complete Blood Count (09/21/25 04:00) Comprehensive Metabolic Panel (09/21/25 04:00) Condition: Unstable (09/20/25 04:58) Ceftriaxone 1gm/50ml (Rocephin) (09/20/25 05:30) Hydromorphone Injection (Dilaudid Inject (09/20/25 05:00) * Surgical Consult (09/20/25 ) Urinalysis (09/20/25 04:58) Drug Screen (09/20/25 04:58) Chest Xray 1 View (09/20/25 04:58) Magnesium (09/20/25 04:58) Losartan Tablet (Cozaar Tablet) (09/20/25 10:00) Metronidazole 500mg/100ml (Flagyl 500mg/ (09/20/25 06:00) Npo Except For Medications (09/20/25 04:58) Ct Ab Pel Wo Con-No Oral Or Iv (09/20/25 04:58) Beta Hcg, Quantitative (09/20/25 04:58) Nm Hida Scan (09/20/25 04:58) Sodium Chloride 0.9% (09/20/25 05:00) Ceftriaxone 1gm/50ml (Rocephin) (09/21/25 09:00) Pantoprazole (Protonix) (09/20/25 05:45) Pantoprazole (Protonix) (09/20/25 10:00) Vital Signs Date Time Temp Pulse Resp B/P (MAP) Pulse Ox O2 Delivery O2 Flow Rate FiO2 09/20/25 05:04 98 Room Air* 0 21 09/20/25 04:30 97.8 72 12 172/106 (128) 98 97.8 09/20/25 03:23 97.7 68 17 146/75 (98) 100 97.7 09/20/25 03:21 68 16 146/75 09/20/25 01:53 Room Air* 0 21 09/20/25 01:48 67 18 190/118 09/20/25 01:47 190/118 09/20/25 01:45 67 20 190/118 (142) 100 09/20/25 00:53 97.4 71 26 210/126 100 97.4 Laboratory Tests Test 09/20/25 01:24 White Blood Count 13.9 10^3/uL (4.4-10.8) H Medications Medications Dose Ordered Sig/Shirley Route Start Time Stop Time Status Last Admin Dose Admin Hydralazine HCl 20 mg ONCE ONCE IV 09/20/25 01:15 09/20/25 01:16 DC 09/20/25 01:47 20 MG Hydromorphone HCl 1 mg ONCE ONCE IV 09/20/25 01:15 09/20/25 01:16 DC 09/20/25 01:48 1 MG Ondansetron HCl 4 mg ONCE ONCE IV 09/20/25 01:15 09/20/25 01:16 DC 09/20/25 01:48 4 MG Assessment/Plan Assessment/Plan #Symptomatic cholelithiasis - NPO - IV 0.9% normal saline 125 cc/hour - USG gallbladder shows cholelithiasis without sonographic evidence of acute cholecystitis - CT abdomen and pelvis without contrast - HIDA scan - lipase 34 - IV Zofran 4 mg q.4 PRN - Dilaudid .5 mg q.4 PRN - IV ceftriaxone 1 g daily - IV metronidazole 500 mg Q8H - surgery consult placed #Hypertensive urgency - hydralazine 20 mg IV given once - pain management - losartan 20 mg p.o. daily - tropes negative - UA - UDS #Hyperbilirubinemia, mild #ALP elevated - Possible Gilbert, recommend outpatient workup. - monitor GI prophylaxis: Protonix 40 mg IV daily DVT prophylaxis: held for now, for possible surgery Diet: NPO except meds Goals of care discussed with the patient for more than 27 minutes: Full code status Case discussed with Dr. Hughes, patient Plan discussed with: Patient, Spouse My Orders Orders - HERMINIA HOPSON RESIDENT Procedure Category Date Status Time Admit ADMIT 09/20/25 Transmitted 04:58 Code Status CODE 09/20/25 Transmitted 04:58 Ondansetron Hcl PHA 09/20/25 In Process (Zofran) 05:00 Complete Blood Count LAB 09/21/25 Verified 04:00 Comprehensive LAB 09/21/25 Verified Metabolic Panel 04:00 Condition: Unstable JACQUI 09/20/25 In Process 04:58 Ceftriaxone 1gm/50ml PHA 09/20/25 In Process (Rocephin) 05:30 Hydromorphone PHA 09/20/25 In Process Injection (Dilaudid 05:00 * Surgical Consult CONS 09/20/25 Transmitted Urinalysis LAB 09/20/25 Logged 04:58 Drug Screen LAB 09/20/25 Logged 04:58 Chest Xray 1 View XY 09/20/25 Taken 04:58 Magnesium LAB 09/20/25 In Process 04:58 Losartan Tablet PHA 09/20/25 In Process (Cozaar Tablet) 10:00 Metronidazole PHA 09/20/25 In Process 500mg/100ml (Flagyl 06:00 Npo Except For JACQUI 09/20/25 In Process Medications 04:58 Ct Ab Pel Wo Con-No CT 09/20/25 Taken Oral Or Iv 04:58 Beta Hcg, Quantitative LAB 09/20/25 In Process 04:58 Nm Hida Scan NM 09/20/25 Logged 04:58 Sodium Chloride 0.9% PHA 09/20/25 In Process 05:00 Ceftriaxone 1gm/50ml PHA 09/21/25 In Process (Rocephin) 09:00 Pantoprazole PHA 09/20/25 Logged (Protonix) 05:45 Pantoprazole PHA 09/20/25 Logged (Protonix) 10:00 Date of Service: Sep 20, 2025 Billing Provider: ABRAHAM HUGHES MD Common Visit Codes: [id number] INP/OBS CARE (HIGH) Secondary Visit Codes: 93669-[id number] CARE PLAN 30 MINUTES HERMINIA HOPSON RESIDENT Sep 20, 2025 05:42
[2025-09-20] MEDS: SODIUM CHLORIDE 0.9% 1,000 ML IV ONE (05:46)
--- NOTE | 2025-09-20 05:49 | DVH ---
CHEST RADIOGRAPH Indication: sob Technique: Single frontal view of the chest was obtained COMPARISON: CT CT AB PEL WO CON-NO ORAL OR IV on DOS: 04/11/25 FINDINGS: Lines and Tubes: None Lungs: Increased interstitial prominence. This may represent pulmonary vascular congestion and/or viral pneumonia. Pleura: No effusion. No pneumothorax. Cardiomediastinal contours: Unremarkable Bones: Unremarkable IMPRESSION: Increased interstitial prominence. This may represent pulmonary vascular congestion and/or viral pneumonia.
[2025-09-20] MEDS: PANTOPRAZOLE 40 MG/10 ML VIAL INJ IV ONE (05:51)
--- NOTE | 2025-09-20 05:57 | DVH ---
Exam: CT CT AB PEL WO CON-NO ORAL OR IV History: cholilithiasis, rule out cholecystitis Comparison Study: CT CT AB PEL WO CON-NO ORAL OR IV on DOS: 04/11/25 Technique: Multidetector spiral CT of the chest, abdomen and pelvis was performed from lower neck to pubic symphysis Axial, coronal and sagittal multiplanar reformats were performed by the technologist on a separate workstation. Radiation Dose : 1. Chest/Abdomen/Pelvis: CTDIvol 14.21 mGy, DLP 786.94 mGy*cm. Findings: Lower neck: Normal thyroid. Lungs: No focal consolidation, pleural effusion or pneumothorax. Moderate bibasilar atelectasis. Heart/Vascular Structures: Normal heart size. No pericardial effusion. Lymph Nodes: No adenopathy Pleura: No pleural effusion or significant pneumothorax. Liver: The liver is normal in size. No focal lesions. Normal hepatic vascular enhancement. Gallbladder and Biliary Tree: Unremarkable Spleen: Unremarkable Pancreas: The pancreas is normal in appearance without focal lesions or abnormal enhancement. Adrenal Glands: Unremarkable Kidneys: Kidneys demonstrate normal symmetric enhancement without focal lesions, calculi or hydronephrosis. Bladder: Unremarkable Bowel: The stomach is grossly normal in appearance. Small bowel and colon are normal in caliber and distribution. The appendix is not visualized; however, no secondary findings of acute appendicitis identified. Ascites: Absent Lymphadenopathy: Conspicuous mildly enlarged right lower quadrant mesenteric lymph nodes measure up to approximately 14 mm in short axis dimension. Abdominal Wall and Mesentery: Unremarkable. Vasculature: The visualized abdominal aorta is normal in size and caliber. Abdominal and pelvic vessels demonstrate normal enhancement. Pelvic Organs: Unremarkable Musculoskeletal: No aggressive focal bony lesions, acute fractures or dislocation. IMPRESSION: 1. No acute findings involving the chest, abdomen or pelvis. 2. Conspicuous mildly enlarged right lower quadrant mesenteric lymph nodes measure up to approximately 14 mm in short axis dimension and may represent sequelae of mesenteric adenitis.
[2025-09-20 07:24] LABS: INR 1.03 (0.9-1.15); Partial Thromboplastin Time 31.9 SEC (24.5-34.5); Prothrombin Time 10.9 sec (9.3-11.8)
[2025-09-20 07:27] LABS: Urine Protein, UAD Negative (Negative)
[2025-09-20] MEDS: HYDROmorphone HCL 2 MG/ML VL/or syr IV PRN (07:28)
[2025-09-20] MEDS: ONDANSETRON HCL 4 MG/2 ML VIAL IV PRN (07:29)
[2025-09-20 07:38] VITALS: PULSE 76; RESP 16; O2SAT 96
[2025-09-20 07:59] LABS: Amphetamine Screen, Urine Pos (NEGATIVE); Barbiturate Scree,Urine Neg (NEGATIVE); Benzodiazephine Screen, Urine Neg (NEGATIVE); Cannabinoid Screen, Urine Pos (NEGATIVE); Cocaine Screen, Urine Neg (NEGATIVE); Opiate Scree,Urine Neg (NEGATIVE); Phencyclidine Screen, Urine Neg (NEGATIVE)
[2025-09-20] MEDS: LOSARTAN POTASSIUM 25 MG TAB PO SCH (10:26)
[2025-09-20] MEDS: PANTOPRAZOLE 40 MG/10 ML VIAL INJ IV SCH (10:27)
[2025-09-20 15:23] LABS: COVID19 ANTIGEN SOFIA FIA NEGATIVE (NEGATIVE)
--- NOTE | 2025-09-20 15:38 | DVH ---
Procedure: NM NM HIDA SCAN Exam Date: 09/20/2025 11:27 AM Clinical History: rule out cholecystitis Comparison Study: US GALLBLADDER on DOS: 09/20/25, NM NM HIDA SCAN on DOS: 08/14/25, US GALLBLADDER on DOS: 08/11/25, US GALLBLADDER on DOS: 05/15/24 Nuclear Medicine Hepatobiliary Scan. Technique: Following the intravenous administration of 6.5 mCi of technetium 99m labeled Choletec multiple planar abdominal planar images were obtained in anterior projection in 5 minute intervals for 60 minutes . Right lateral images were obtained at 240 minutes after injection. Findings: The liver appears grossly normal in size. There is no abnormal persistence of the cardiac or blood pool activity. There is nonvisualization of the gallbladder. There is excretion into the small bowel. Impression: Nonvisualization of the gallbladder suggestive of cystic duct obstruction.
--- NOTE | 2025-09-20 16:26 | DVHINCON2 ---
Consultation - Surgical Date Seen: Sep 20, 2025 Referring Physician Reason for Consultation Cholecystitis History of Present Illness History of Present Illness Mrs. Hendrix is a 44 yo F who presents with right upper quadrant pain, nausea and vomiting since last night. States that the pain is much better today given that she has been taking the pain meds in the ED. She has had multiple episodes in the past. Denies fevers, chills, changes in urinary or stooling habits or acholic stools. States that greasy foods are what triggers the pain. Past Medical/Surgical History Past Medical/Surgical History Past medical history hypertension what Past surgical history tonsillectomy Family and Social History Family and Social History Family history noncontributory ETOH denies T Ob vapes Drugs marijuana Allergies and medications Allergies: Coded Allergies: Penicillins (Verified Allergy, Intermediate, 11/01/14) Home Meds Active Scripts Amoxicillin & Pot Clavulanate (AUGMENTIN TABLET) 875 Mg Tb, 875 MG PO BID for 5 Days, #10 TAB 0 Refills Prov:ALIE YANES MD 08/14/25 Amlodipine Besylate (NORVASC TABLET) 5 Mg Tb, 5 MG PO DAILY for 90 Days, #90 TAB Prov:RUPERT MALDONADO RESIDENT 05/17/24 Meclizine HCl (Meclizine Hydrochloride) 25 Mg Tab, 25 MG PO [id number] PRN, #12 TAB 0 Refills Prov:KATIE OWEN [facility] 05/11/23 Acetaminophen (Tylenol) 325 Mg Tb, 325 MG PO Q4HPRN PRN, #30 TAB 0 Refills Take 1-2 caps po q4h prn for pain (Do not exceed 3,000mg of acetaminophen in 24 hours) Prov:KATIE OWEN [facility] 05/11/23 Reported Medications Ibuprofen Micronized (MOTRIN TABLET) 600 Mg Tb, 200 MG PO TID, #40 TAB *Black box warning-NSAIDS can increase risk of [place] & hypertension, GI irritation, ulceration, bleed, perferation. Do not use post cardiac surgery. Use short duration/lowest effective dose. 08/12/25 Review of systems Review of Systems: Deferred Examination Vital signs Vital Signs Date Time Temp Pulse Resp B/P (MAP) Pulse Ox O2 Delivery O2 Flow Rate FiO2 09/20/25 14:00 78 17 126/74 (91) 97 09/20/25 12:00 97.9 97.9 09/20/25 07:42 Room Air* 0 21 Medications Current Medications Medications (Trade) Dose Ordered Sig/Shirley Route PRN Reason Start Time Stop Time Status Last Admin Ondansetron HCl (Zofran) 4 mg Q4HP PRN IV NAUSEA / VOMITING 09/20/25 05:00 09/20/25 07:29 Ceftriaxone Sodium 50 ml @ 100 mls/hr DAILY@09 IV 09/21/25 09:00 Hydromorphone HCl (Dilaudid Injection) 0.5 mg Q4HPRN PRN IV SEVERE PAIN (7-10 PAIN SCALE) 09/20/25 05:00 09/20/25 07:28 Losartan Potassium (Cozaar Tablet) 25 mg DAILY PO 09/20/25 10:00 09/20/25 10:26 Metronidazole 100 ml @ 100 mls/hr Q8HR IV 09/20/25 06:00 09/20/25 14:07 Pantoprazole Sodium (Protonix) 40 mg DAILY IV 09/20/25 10:00 09/20/25 10:27 Laboratory Labs Test 09/20/25 14:48 09/20/25 10:18 09/20/25 08:57 09/20/25 06:36 Range/Units Influenza Type A Antigen Negative Negative Influenza Type B Antigen Negative Negative SARS-CoV-2 Antigen (Rapid) Negative NEGATIVE Lactic Acid Level 1.2 0.4-2.0 mmol/L B-Type Natriuretic Peptide 70.84 0-100 pg/mL Troponin I High Sensitivity 4 </=34 ng/L Urine Color Colorless Yellow Urine Clarity Clear Clear Urine pH 5.5 5.0-9.0 Urine Specific [place] 1.009 1.001-1.035 Urine Protein Negative Negative Urine Ketones Negative Negative Urine Blood Negative Negative /uL Urine Nitrite Negative Negative Urine Bilirubin Negative Negative Urine Urobilinogen Normal Negative mg/dL Urine Leukocyte Esterase 1+ Negative /uL Urine RBC 1 0 - 4 /hpf Urine Microscopic WBC 3 0-5 /HPF Urine Squamous Epithelial Cells None seen <5 /hpf Urine Bacteria None seen None Seen /hpf Urine Glucose Normal Normal mg/dL Urine Test Negative Negative Urine Opiates Screen Neg NEGATIVE Urine Fentanyl Screen Neg NEGATIVE Urine Barbiturates Screen Neg NEGATIVE Urine Phencyclidine Screen Neg NEGATIVE Urine Amphetamines Screen Pos NEGATIVE Urine Benzodiazepines Screen Neg NEGATIVE Urine Cocaine Screen Neg NEGATIVE Urine Cannabinoids Screen Pos NEGATIVE Test 09/20/25 06:13 09/20/25 02:47 09/20/25 01:24 Range/Units Prothrombin Time 10.9 9.3-11.8 sec Prothrombin Time INR 1.03 0.9-1.15 Activated Partial Thromboplast Time 31.9 24.5-34.5 SEC Magnesium Level 1.9 1.6-2.6 mg/dL Direct Bilirubin 0.5 H <0.3 mg/dL Beta HCG, Quantitative 1.6 1.5-4.2 mIU/mL White Blood Count 13.9 H 4.4-10.8 10^3/uL Red Blood Count 6.19 H 4.0-5.20 10^6/uL Hemoglobin 17.5 H 12.2-16.2 g/dL Hematocrit 52.8 H 36.0-46.0 % Mean Corpuscular Volume 85.3 80.0-100.0 fL Mean Corpuscular Hemoglobin 28.2 28.0-32.0 pg Mean Corpuscular Hemoglobin Concent 33.1 32.0-36.0 g/dL Red Cell Distribution Width 13.6 11.8-14.3 % Platelet Count 366 140-450 10^3/uL Mean Platelet Volume 8.2 6.9-10.8 fL Neutrophils (%) (Auto) 84.1 H 37.0-80.0 % Lymphocytes (%) (Auto) 12.0 10.0-50.0 % Monocytes (%) (Auto) 3.6 0.0-12.0 % Eosinophils (%) (Auto) 0.1 0.0-7.0 % Basophils (%) (Auto) 0.2 0.0-2.0 % Neutrophils # (Auto) 11.7 H 1.6-8.6 10 ^3/uL Lymphocytes # (Auto) 1.7 0.4-5.4 10 ^3/uL Monocytes # (Auto) 0.5 0-1.3 10 ^3/uL Eosinophils # (Auto) 0 0-0.8 10 ^3/uL Basophils # (Auto) 0 0-0.2 10 ^3/uL Nucleated Red Blood Cells 0.0 % Sodium Level 136 136-145 mmol/L Potassium Level 3.8 3.5-5.1 mmol/L Chloride Level 101 98-107 mmol/L Carbon Dioxide Level 22 20-31 mmol/L Anion Gap 13 5-15 Blood Urea Nitrogen 7 L 9-23 mg/dL Creatinine 0.71 0.550-1.02 mg/dL Glomerular Filtration Rate Calc 106 >90 mL/min BUN/Creatinine Ratio 9.9 L 10.0-20.0 Serum Glucose 110 H 74-106 mg/dL Calcium Level 10.1 8.7-10.4 mg/dL Total Bilirubin 2.0 H 0.2-1.0 mg/dL Aspartate Amino Transferase (AST) 27 13-40 U/L Alanine Aminotransferase (ALT) 31 7-40 U/L Alkaline Phosphatase 168 H 46-116 U/L Total Protein 9.5 H 5.7-8.2 g/dL Albumin 5.0 H 3.2-4.8 g/dL Lipase 34 12-53 U/L Examination: GENERAL:Normal, HEENT:Normal (No jaundice), ABDOMEN:Abnormal (Nondistended, soft, depressible, no scars, right upper quadrant tenderness with positive Velasquez's sign, no rebound, no guarding) Problem List/Assessment/Plan Problems: (1) Acute cholecystitis Assessment and Plan Mrs. Henrdix is a 44-year-old female who presented with the acute cholecystitis ultrasound shows multiple gallstones within the gallbladder wall lumen. Patient also has a positive HIDA scan. She will benefit from laparoscopic cholecystectomy. I went over the procedure, risks, benefits, complications, and alternatives. Patient is unsure if she wants surgery at this point. I thoroughly explained the possible complications if this acute cholecystitis episode goes untreated and patient is still does not want surgery at this point. 1. Keep NPO 2. Pain and nausea control 3. IV fluids 4. Will re-visit with the patient tomorrow Plan discussed with Plan discussed with: Patient Visit Coding Surgery Date of Service if different f: Sep 20, 2025 Billing Provider: EULA LOPEZ MD Surgery Visit Codes: [id number] - INP CONSULT <110 MIN EULA LOPEZ MD Sep 20, 2025 16:26
[2025-09-20] MEDS: ACETAMINOPHEN 325 MG TAB PO ONE (16:58)
[2025-09-20 17:26] VITALS: BP 122/85; PULSE 79; RESP 18; TEMP 97.7; O2SAT 97
--- NOTE | 2025-09-20 19:13 | DVHPNRES ---
Progress Note Date Seen: Sep 20, 2025 Resident Creating Document: LES HDZ RESIDENT Medical Necessity Reason Pt with a Central, PICC or Fol: No Subjective Review of Systems Brief history on arrival: 43-year-old female with history of hypertension and gallstones, came to the ED with a chief complaints of right upper quadrant abdominal pain. Patient reports that she had eaten grant and eggs in the morning, after which she had acute onset of sharp right upper quadrant pain, 10/10 intensity, radiating to the back, with no aggravating or relieving factors, associated with 3 episodes of watery, nonbloody emesis and chills. She also mentions that she has been under a lot of stress lately and had shortness of breath and pressure-like feeling in her chest which lasted a few minutes and went away after the abdominal pain started. She denies any chest pain, palpitations, nausea, fever, urinary symptoms, GERD symptoms. Patient also reports that she went to [place] to check her BP after the pressing sensation in her chest and was told her BP was very high and to visit the ED. She reports has not been able to find a PCP and has run out of BP medication( amlodipine 5 mg) for 1 month. On admission her blood pressure was 190/118 mmHg, temp 97.8, pulse 67, SpO2 98% in room air. WBC count was 13.9, Tropes were negative, lipase 34, ultrasound shows cholelithiasis without sonographic evidence of acute cholecystitis. We are admitting the patient for further workup and management. PMH: Hypertension, cholelithiasis, acute cholecystitis , right rotator cuff tear past surgical history: none Family history: Reviewed, noncontributory of the management of this case Social history: Patient used to smoke 1 and half pack of cigarettes per day for few years, quit 1 year ago and vapes nicotine once in awhile; denies alcohol use, smokes marijuana a few puffs once in a while to sleep Allergies: Penicillin PCP: Does not have 1 Code status: Full code ROS: Constitutional: Denies weight loss, fever and chills. HEENT: Denies changes in vision and hearing. Respiratory: Denies shortness of breath and cough Cardiovascular: Denies chest discomfort or palpitations GI: RUQ pain, nausea, vomiting. : Denies dysuria and urinary frequency. Musculoskeletal: Denies myalgias and joint pain Skin: Denies rash and pruritus. Neurological: Denies dizziness, headache, vision or hearing problems 09/20/2025: Patient was seen at bedside today. Continues to complain of pain in right upper quadrant which has improved from baseline. Surgery consulted. Objective vital signs Vital Sign Date Time Temp Pulse Resp B/P (MAP) Pulse Ox O2 Delivery O2 Flow Rate FiO2 09/20/25 18:17 82 16 122/85 09/20/25 17:26 97.7 97 97.7 09/20/25 07:42 Room Air* 0 21 Total Intake and Output 09/19/25 09/19/25 09/20/25 15:00 23:00 07:00 Intake Total 175 ml Balance 175 ml medications Current Medications Medications Dose Ordered Sig/Shirley Route Start Time Stop Time Status Last Admin Dose Admin Ondansetron HCl 4 mg Q4HP PRN IV 09/20/25 05:00 09/20/25 07:29 4 MG Ceftriaxone Sodium 50 ml @ 100 mls/hr DAILY@09 IV 09/21/25 09:00 Hydromorphone HCl 0.5 mg Q4HPRN PRN IV 09/20/25 05:00 09/20/25 18:17 0.5 MG Losartan Potassium 25 mg DAILY PO 09/20/25 10:00 09/20/25 10:26 25 MG Metronidazole 100 ml @ 100 mls/hr Q8HR IV 09/20/25 06:00 09/20/25 14:07 100 MLS/HR Pantoprazole Sodium 40 mg DAILY IV 09/20/25 10:00 09/20/25 10:27 40 MG Examination General: Patient alert and oriented in person, place and time. Patient following commands. HEENT: Normocephalic, atraumatic, moist mucous membranes Respiratory/pulmonary: Clear lungs bilaterally, vesicular murmurs present in almost all lung cota, no associated crackles or wheezes. Cardiovascular: Normal heart sounds S1 and S2 with no associated murmurs Abdomen: Right upper quadrant tenderness on light palpation, negative Velasquez's sign Extremities: There is no peripheral edema present at the lower extremities. Skin: No rashes or pruritus, there is no sacral edema present at this time. Neurological: Intact cranial nerves with no focal neurologic deficits laboratory and microbiology Laboratory Tests 09/20/25 01:24 Test 09/20/25 01:24 Range/Units Serum Glucose 110 H 74-106 mg/dL Problem List/Assessment/Plan Problem List/Assessment/Plan Symptomatic cholelithiasis with cystic duct obstruction Biliary colic Supportive management with NPO, IV fluids, Zofran, pain management USG gallbladder shows cholelithiasis without sonographic evidence of acute cholecystitis CT abdomen and pelvis without contrast Continue V ceftriaxone 1 g daily, metronidazole 500 mg Q8H Surgery on board HIDA scan shows nonvisualization of gallbladder suggestive of cystic duct obstruction Hypertensive urgency Hydralazine 20 mg IV given once Losartan 20 mg p.o. daily Polysubstance abuse Patient counseled on cessation on bedside for more than 12 minutes Transaminitis with mild Hyperbilirubinemia, ALP elevation Possible Gilbert, recommend outpatient workup. Monitor CMP Pancreatitis ruled out DIET: NPO DVT PROPHYLAXIS: Ambulatory; SCDs ordered GI PROPHYLAXIS: Protonix CODE STATUS: Goals of care discussed with patient at bedside for more than 19 minutes. Full code DISPOSITION: Med/surge This medical document was created using an electronic medical record system with [employer] direct computerized dictation system. Although this document has been carefully reviewed, there may still be some phonetic and typographical errors. These areas are purely typographical due to imperfections of the software programs, and do not reflect any compromise in the patient's medical care. Goals of care discussed with the patient for more than 19 minutes: Full code status Case discussed with Dr. Celis Plan discussed with: Patient, Other (nurses) My Orders My Orders Orders - LES HDZ Procedure Category Date Status Time Hepatitis C Antibody LAB 09/20/25 Logged 18:05 Hepatitis B Core Igm LAB 09/20/25 Logged 18:05 Date of Service: Sep 20, 2025 Billing Provider: LEVI CELIS MD Common Visit Codes: [id number] INP/OBS CARE(HIGH) LES HDZ RESIDENT Sep 20, 2025 19:13 LEVI CELIS MD Sep 23, 2025 16:49
[2025-09-20 20:45] VITALS: BP 146/94; PULSE 74; RESP 19; TEMP 98; O2SAT 96
[2025-09-21 01:00] VITALS: BP 147/92; PULSE 76; RESP 19; TEMP 98.1; O2SAT 100
[2025-09-21] MEDS: ACETAMINOPHEN 325 MG TAB PO ONE (03:55)
[2025-09-21 05:00] VITALS: BP 147/88; PULSE 87; RESP 19; TEMP 98; O2SAT 100
[2025-09-21 06:38] LABS: Hematocrit 45.0 % (36.0-46.0); Hemoglobin 14.8 g/dL (12.2-16.2); Mean Corpuscular Hemoglobin 28.2 pg (28.0-32.0); Mean Corpuscular Volume 85.4 fL (80.0-100.0); Nucleated Red Blood Cells % 0.1 %
[2025-09-21 06:59] LABS: Alanine Aminotransferase 23 U/L (7-40); Albumin 3.9 g/dL (3.2-4.8); Anion Gap 10 (5-15); Chloride 103 mmol/L (98-107); Glucose 81 mg/dL (74-106); Potassium 4.2 mmol/L (3.5-5.1); Total Protein 7.7 g/dL (5.7-8.2)
[2025-09-21 07:13] LABS: Alkaline Phosphatase 141 U/L (46-116); BUN/Creatinine Ratio 8.3 (10.0-20.0); Bilirubin, Total 2.3 mg/dL (0.2-1.0); Blood Urea Nitrogen < 5 mg/dL (9-23); Calcium 8.9 mg/dL (8.7-10.4); Carbon Dioxide 22 mmol/L (20-31); Sodium 135 mmol/L (136-145)
[2025-09-21 09:00] VITALS: BP 154/100; PULSE 76; RESP 18; TEMP 98.7; O2SAT 99
--- NOTE | 2025-09-21 10:20 | DVHPN2 ---
Progress Note - Surgical Date Seen: Sep 21, 2025 Post op day Post op day: 0 Subjective Patient reports: Feels better (Patient states he feels better, no abdominal pain complaints, no nausea, no vomiting) Review of Systems: Not Done Objective Vital signs Vital Sign Date Time Temp Pulse Resp B/P (MAP) Pulse Ox O2 Delivery O2 Flow Rate FiO2 09/21/25 09:00 98.7 76 18 154/100 (118) 99 98.7 09/20/25 20:00 Room Air* 0 21 Total Intake and Output 09/20/25 09/20/25 09/21/25 15:00 23:00 07:00 Intake Total 100 ml 200 ml 700 ml Output Total 500 ml Balance -400 ml 200 ml 700 ml Medications Current Medications Medications Dose Ordered Sig/Shirley Route Start Time Stop Time Status Last Admin Dose Admin Ondansetron HCl 4 mg Q4HP PRN IV 09/20/25 05:00 09/20/25 07:29 4 MG Ceftriaxone Sodium 50 ml @ 100 mls/hr DAILY@09 IV 09/21/25 09:00 Hydromorphone HCl 0.5 mg Q4HPRN PRN IV 09/20/25 05:00 09/21/25 05:25 0.5 MG Losartan Potassium 25 mg DAILY PO 09/20/25 10:00 09/20/25 10:26 25 MG Metronidazole 100 ml @ 100 mls/hr Q8HR IV 09/20/25 06:00 09/21/25 05:07 100 MLS/HR Pantoprazole Sodium 40 mg DAILY IV 09/20/25 10:00 09/20/25 10:27 40 MG Laboratory Laboratory Tests 09/21/25 05:05 Test 09/21/25 05:05 Range/Units Serum Glucose 81 74-106 mg/dL Examination: GENERAL:Normal, HEENT:Normal (No icterus), ABDOMEN:Normal (Nondistended, soft, depressible, nontender) Labs and/or images reviewed: Labs reviewed by me (Leukocytosis down trending 12.1 from 14, patient has elevated total bilirubin level but direct bilirubin component is 0.5) Problem List/Assessment/Plan Problems: (1) Acute cholecystitis Assessment and Plan Mrs. Hendrix is a 44-year-old female who presented with the acute cholecystitis ultrasound shows multiple gallstones within the gallbladder wall lumen. Patient also has a positive HIDA scan. She will benefit from laparoscopic cholecystectomy. I went over the procedure, risks, benefits, complications, and alternatives. Patient is unsure if she wants surgery at this point. I thoroughly explained the possible complications if this acute cholecystitis episode goes untreated and patient is still does not want surgery at this point. Interval: Today I revisited the topic of surgery with the patient, I am still recommending laparoscopic cholecystectomy, patient states that she thought about it and she really does not want to have surgery at this time. She also states that she is not having abdominal pain anymore, regardless I still think that she will benefit from cholecystectomy. Given that the patient does not want to have surgery, acute cholecystitis can be treated with antibiotics for a period of 14 days. I explained to the patient that gallbladder inflammation infection can get so severe, that the gallbladder can perforate, leading to other complications. I also explained to the patient that the more episodes of pain someone has, the harder the gallbladder removal surgery is, due to chronic and severe scarring. 1. No surgical intervention planned, as patient does not want to have surgery. 2. She would need antibiotics for a total of 14 days, recommend Augmentin 875- 125 mg 1 tab p.o. b.i.d. for 14 days, upon discharge 3. Started on a clear liquid diet 4. Please provide my office information, for elective surgical planning. 5. I will sign off please call with any questions or concerns My Orders My Orders Orders - EULA LOPEZ MD Procedure Category Date Status Time Acetaminophen Tablet PHA 09/21/25 Verified (Tylenol Tablet) 10:15 Clear Liq Diet DIET 09/21/25 Verified Lunch Plan discussed with Plan discussed with: Patient Visit Coding Surgery Date of Service if different f: Sep 21, 2025 Billing Provider: EULA LOEPZ MD Surgery Visit Codes: [id number] INP/OBS CARE(HIGH) EULA LOPEZ MD Sep 21, 2025 10:20
[2025-09-21] MEDS: ACETAMINOPHEN 325 MG TAB PO PRN (10:51)
[2025-09-21 13:00] VITALS: BP 158/99; PULSE 73; RESP 20; TEMP 97.8; O2SAT 95
[2025-09-21] MEDS: HYDROcodone-ACET 5/325MG TAB PO ONE (13:54)
--- NOTE | 2025-09-21 16:12 | DVHPNRES ---
Progress Note Date Seen: Sep 21, 2025 Resident Creating Document: LES HDZ RESIDENT Medical Necessity Reason Pt with a Central, PICC or Fol: No Subjective Review of Systems Brief history on arrival: 43-year-old female with history of hypertension and gallstones, came to the ED with a chief complaints of right upper quadrant abdominal pain. Patient reports that she had eaten grant and eggs in the morning, after which she had acute onset of sharp right upper quadrant pain, 10/10 intensity, radiating to the back, with no aggravating or relieving factors, associated with 3 episodes of watery, nonbloody emesis and chills. She also mentions that she has been under a lot of stress lately and had shortness of breath and pressure-like feeling in her chest which lasted a few minutes and went away after the abdominal pain started. She denies any chest pain, palpitations, nausea, fever, urinary symptoms, GERD symptoms. Patient also reports that she went to [place] to check her BP after the pressing sensation in her chest and was told her BP was very high and to visit the ED. She reports has not been able to find a PCP and has run out of BP medication( amlodipine 5 mg) for 1 month. On admission her blood pressure was 190/118 mmHg, temp 97.8, pulse 67, SpO2 98% in room air. WBC count was 13.9, Tropes were negative, lipase 34, ultrasound shows cholelithiasis without sonographic evidence of acute cholecystitis. We are admitting the patient for further workup and management. PMH: Hypertension, cholelithiasis, acute cholecystitis , right rotator cuff tear past surgical history: none Family history: Reviewed, noncontributory of the management of this case Social history: Patient used to smoke 1 and half pack of cigarettes per day for few years, quit 1 year ago and vapes nicotine once in awhile; denies alcohol use, smokes marijuana a few puffs once in a while to sleep Allergies: Penicillin PCP: Does not have 1 Code status: Full code 09/20/2025: Continues to complain of pain in right upper quadrant which has improved from baseline. Surgery consulted. 09/21/25: Patient was seen at bedside today. Feeling better today. Complaining of headache, continue supportive management. Labs show WBC 12k, continue medical management, patient continue to refuse surgical management. Objective vital signs Vital Sign Date Time Temp Pulse Resp B/P (MAP) Pulse Ox O2 Delivery O2 Flow Rate FiO2 09/21/25 13:00 97.8 73 20 158/99 (118) 95 97.8 09/21/25 08:00 Room Air* 0 21 Total Intake and Output 09/20/25 09/20/25 09/21/25 15:00 23:00 07:00 Intake Total 100 ml 200 ml 700 ml Output Total 500 ml Balance -400 ml 200 ml 700 ml medications Current Medications Medications Dose Ordered Sig/Shirley Route Start Time Stop Time Status Last Admin Dose Admin Ondansetron HCl 4 mg Q4HP PRN IV 09/20/25 05:00 09/20/25 07:29 4 MG Ceftriaxone Sodium 50 ml @ 100 mls/hr DAILY@09 IV 09/21/25 09:00 09/21/25 09:00 100 MLS/HR Hydromorphone HCl 0.5 mg Q4HPRN PRN IV 09/20/25 05:00 09/21/25 05:25 0.5 MG Losartan Potassium 25 mg DAILY PO 09/20/25 10:00 09/21/25 10:53 25 MG Metronidazole 100 ml @ 100 mls/hr Q8HR IV 09/20/25 06:00 09/21/25 13:54 100 MLS/HR Pantoprazole Sodium 40 mg DAILY IV 09/20/25 10:00 09/21/25 10:00 40 MG Acetaminophen 650 mg Q6HR PRN PO 09/21/25 10:15 09/21/25 10:51 650 MG Examination General: Patient alert and oriented in person, place and time. Patient following commands. HEENT: Normocephalic, atraumatic, moist mucous membranes Respiratory/pulmonary: Clear lungs bilaterally, vesicular murmurs present in almost all lung cota, no associated crackles or wheezes. Cardiovascular: Normal heart sounds S1 and S2 with no associated murmurs Abdomen: Mild Right upper quadrant tenderness on deep palpation, negative Velasquez's sign Extremities: There is no peripheral edema present at the lower extremities. Skin: No rashes or pruritus, there is no sacral edema present at this time. Neurological: Intact cranial nerves with no focal neurologic deficits laboratory and microbiology Laboratory Tests 09/21/25 05:05 Test 09/21/25 05:05 Range/Units Serum Glucose 81 74-106 mg/dL Microbiology Date/Time Source Procedure Growth Status 09/20/25 11:30 Blood Blood Culture - Preliminary NO GROWTH AFTER 24 HOURS OF INCUBATION. Resulted 09/20/25 06:15 Voided Urine Urine Culture - Preliminary Resulted Problem List/Assessment/Plan Problem List/Assessment/Plan Symptomatic cholelithiasis with cystic duct obstruction Biliary colic Supportive management with NPO, IV fluids, Zofran, pain management USG gallbladder shows cholelithiasis without sonographic evidence of acute cholecystitis CT abdomen and pelvis without contrast Continue IV ceftriaxone 1 g daily, metronidazole 500 mg Q8H Surgery on board No surgical intervention planned, as patient does not want to have surgery. She would need antibiotics for a total of 14 days, recommend Augmentin 875- 125 mg 1 tab p.o. b.i.d. for 14 days, upon discharge Started on a clear liquid diet HIDA scan shows nonvisualization of gallbladder suggestive of cystic duct obstruction Hypertensive urgency Hydralazine 20 mg IV given once Losartan 20 mg p.o. daily Polysubstance abuse UDS positive for polysubstance use Patient counseled on cessation on bedside for more than 12 minutes Transaminitis with mild Hyperbilirubinemia, ALP elevation Possible Gilrosita, recommend outpatient workup. Monitor CMP Pancreatitis ruled out DIET: NPO DVT PROPHYLAXIS: Ambulatory; SCDs ordered GI PROPHYLAXIS: Protonix CODE STATUS: Goals of care discussed with patient at bedside for more than 19 minutes. Full code DISPOSITION: Med/surge This medical document was created using an electronic medical record system with [employer] direct computerized dictation system. Although this document has been carefully reviewed, there may still be some phonetic and typographical errors. These areas are purely typographical due to imperfections of the software programs, and do not reflect any compromise in the patient's medical care. Goals of care discussed with the patient for more than 19 minutes: Full code status Case discussed with Dr. Celis Plan discussed with: Patient, Other (nurses) My Orders My Orders Orders - L[facility] RESIDENT Procedure Category Date Status Time Hepatitis C Antibody LAB 09/20/25 In Process 18:05 Hepatitis B Core Igm LAB 09/20/25 In Process 18:05 Sequential JACQUI 09/20/25 In Process Compression Device 18:44 Type And Screen BBK 09/21/25 Logged 15:39 Date of Service: Sep 21, 2025 Billing Provider: LES HDZ RESIDENT Common Visit Codes: [id number] INP/OBS CARE(HIGH) LES HDZ Sep 21, 2025 16:12 LEVI CELIS MD Sep 23, 2025 16:50
[2025-09-21 16:48] VITALS: BP 132/80; PULSE 83; RESP 20; TEMP 98.8; O2SAT 97
[2025-09-21 21:00] VITALS: BP 125/68; PULSE 76; RESP 20; TEMP 97.9; O2SAT 100
[2025-09-22] VITALS (9 sets, daily range): BP systolic 103–139; BP diastolic 57–95; PULSE 71–89; RESP 14–20; TEMP 97.6–98.6; O2SAT 94–100
[2025-09-22 07:09] LABS: Hematocrit 48.0 % (36.0-46.0); Hemoglobin 15.8 g/dL (12.2-16.2); Mean Corpuscular Hemoglobin 28.2 pg (28.0-32.0); Mean Corpuscular Volume 85.5 fL (80.0-100.0); Nucleated Red Blood Cells % 0.1 %
[2025-09-22 07:27] LABS: Alanine Aminotransferase 26 U/L (7-40); Albumin 3.8 g/dL (3.2-4.8); Anion Gap 12 (5-15); BUN/Creatinine Ratio 11.7 (10.0-20.0); Carbon Dioxide 24 mmol/L (20-31); Chloride 102 mmol/L (98-107); Glucose 91 mg/dL (74-106); Potassium 4.5 mmol/L (3.5-5.1); Sodium 138 mmol/L (136-145); Total Protein 7.2 g/dL (5.7-8.2)
[2025-09-22 07:28] LABS: Alkaline Phosphatase 145 U/L (46-116); Bilirubin, Total 2.2 mg/dL (0.2-1.0); Blood Urea Nitrogen 7 mg/dL (9-23); Calcium 8.5 mg/dL (8.7-10.4)
[2025-09-22] MEDS: KETOROLAC TROMETH 30 MG/ML 1ML VIAL IV ONE (08:30)
[2025-09-22] MEDS ORDERED: MEPERIDINE HCL (25 MG/ML) 1ML VIAL ONE (08:38)
[2025-09-22] MEDS ORDERED: fentaNYL CITRATE 100 MCG/2 ML VL ONE (08:38)
[2025-09-22] MEDS ORDERED: PROPOFOL 10 MG/ML 20 ML IV ONE (08:40)
[2025-09-22] MEDS ORDERED: ONDANSETRON HCL 4 MG/2 ML VIAL ONE (08:40)
[2025-09-22] MEDS ORDERED: ROCURONIUM 10MG/ML 10ML VIAL IV ONE (08:57)
[2025-09-22] MEDS: BUPIVACAINE HCL 0.25% P/F 10 ML VIAL ONE (09:06)
[2025-09-22] MEDS ORDERED: PHENYLEPHRINE HCL 10 MG/ML VL ONE (09:07)
[2025-09-22] MEDS ORDERED: SUGAMMADEX 200mg/2ml Vial (100MG/ML) IV ONE (10:16)
[2025-09-22] MEDS: SUCCINYLCHOLINE CHLORIDE 20 MG/ML 10ML VIAL IV ONE (10:41)
--- NOTE | 2025-09-22 10:42 | DVHOP2 ---
Operative Report - 2 Report Details Date: 09/22/25 Preop Diagnosis: Acute cholecystitis Postop Diagnosis: Same Surgeon: Julio Jenkins MD Anesthesiologist: Dr. Isabel Anesthesia: General Consent: The patient was informed of the risks and benefits of the procedure. These include but are not limited to complications of anesthesia, postoperative infection, incomplete relief of symptoms, recurrence of symptoms, damage to blood vessels, nerves and tendons, deep venous thrombosis, pulmonary embolism and possible need for repeat surgery in the future. Estimated Blood Loss: 15 mL Findings: Acutely inflamed gallbladder with dense omental adhesions to the gallbladder, adhesions between stomach and gallbladder, hypervascular, dome of the gallbladder very scarred to the liver. Indications for Surgery: Acute cholecystitis Name of Procedure Performed Laparoscopic cholecystectomy Procedure Details Procedure Details: Upon arrival to the operating room the patient was transferred to the operating table and placed in the supine position with arms extended. General endotracheal anesthesia was induced. Time-out was observed. Patient was prepped and draped in the standard sterile surgical fashion with chlorhexidine. I then proceeded to make an infraumbilical curvilinear incision and carried the dissection down to fascia. once at the fascia I then grasped the umbilical stalk with Salina clamp and walked it down to its base. Once at the base of the umbilical stalk I gained entry into the peritoneal cavity utilizing Warner technique. I then placed a 0 Vicryl fascial retention suture in [id number] fashion. I then introduced the Warner trocar and insufflated the peritoneal cavity to 15 mmHg with toleration. I then inserted a 10 mm 30 degree camera, surveyed the entry site no injuries noted. Patient was then placed in the reverse Trendelenburg [id number] position. I then placed 3 additional working 5 mm ports at the epigastric area, right midclavicular subcostal area and right flank area. I then directed my attention to the liver gallbladder. Gallbladder was very distended with thick omental adhesions to it. I took down the omental adhesions to the gallbladder with cautery, sharp and bluntly. There were also some stomach adhesions to the gallbladder these adhesions were taken down with scissors. Once the gallbladder was free from adhesions it was noted to be very distended, acutely inflamed and very hypervascular. I then decompressed the gallbladder with needle syringe, and extracted 60 mL of bilious fluid. I then placed a grasper at the fundus of the gallbladder and retracted it cephalad and towards the right shoulder. A 2nd grasper was used to retract laterally at the infundibulum. This exposed Calot triangle. I then incised the peritoneum at either side of the base of the gallbladder and carried it down to the liver. I then proceeded to dissect all of the fibrous and fatty tissue of Calot triangle. Once Calot triangle was without any fevers or fatty tissue I was able to identify 2 structures entering the gallbladder, the cystic duct and cystic artery. Critical view was obtained. Cystic duct was then milked for any stones with Maryland device, none found. I then clipped the cystic duct 3 times proximal 1 times distal with 5 mm clips. I then clipped the artery 2 times proximal 1 times distal with 5 mm clips. I then proceeded to transect the duct 1st and in the artery. I then noted a posterior cystic artery branch, that was also clipped twice proximal and 1 distal with 5 mm clips, and transected. I then dissected the gallbladder off of the liver bed with electrocautery. The dome of the gallbladder was extremely scarred into the liver and I got into the gallbladder at that point, I had some bile spillage. Once the gallbladder was completely free from the liver bed it was placed in the Endo-Catch bag, along with 2 large stones that had fallen out of the gallbladder through the previous hole. Gallbladder and contents was removed from the peritoneal cavity at the umbilical site. I then proceeded to look at the gallbladder fossa there were 2 areas that had a cauterized due to minimal oozing. I then serially irrigated the gallbladder fossa under the liver and over the liver until all effluent was clear. This concluded the intraperitoneal portion of the operation. All counts complete and correct. All 5 mm ports were removed under direct vision, no bleeding coming from abdominal wall. The peritoneal cavity was allowed to fully desufflate and the fascial retention suture was closed. Marcaine 0.25% was used as local anesthetic. All skin sites were closed with 4-0 Monocryl and Dermabond. Patient tolerated the procedure well and was transferred to PACU in stable condition. Condition Stable Disposition Still a Patient JULIO LOPEZ MD Sep 22, 2025 10:42
[2025-09-22] MEDS ORDERED: METOCLOPRAMIDE HCL 5MG/ml INJ 2ml VIAL IV PRN (10:45)
[2025-09-22] MEDS ORDERED: ACETAMINOPHEN IV 1000 MG/100ML (10MG/ML) IV PRN (10:45)
[2025-09-22] MEDS ORDERED: HYDROmorphone HCL 2 MG/ML VL/or syr IV PRN (10:45)
[2025-09-22] MEDS ORDERED: ONDANSETRON HCL 4 MG/2 ML VIAL IV PRN (10:45)
[2025-09-22] MEDS ORDERED: MEPERIDINE HCL (25 MG/ML) 1ML VIAL IV PRN (10:45)
[2025-09-22 11:07] LABS: Hepatitis C Antibody Negative (Negative)
[2025-09-22] MEDS: ACETAMINOPHEN 325 MG TAB PO SCH (13:11)
[2025-09-22] MEDS: KETOROLAC TROMETH 30 MG/ML 1ML VIAL IV SCH (15:26)
--- NOTE | 2025-09-22 17:45 | DVHPNRES ---
Progress Note Date Seen: Sep 22, 2025 Resident Creating Document: LES [facility] RESIDENT Medical Necessity Reason Pt with a Central, PICC or Fol: No Subjective Review of Systems Brief history on arrival: 43-year-old female with history of hypertension and gallstones, came to the ED with a chief complaints of right upper quadrant abdominal pain. Patient reports that she had eaten grant and eggs in the morning, after which she had acute onset of sharp right upper quadrant pain, 10/10 intensity, radiating to the back, with no aggravating or relieving factors, associated with 3 episodes of watery, nonbloody emesis and chills. She also mentions that she has been under a lot of stress lately and had shortness of breath and pressure-like feeling in her chest which lasted a few minutes and went away after the abdominal pain started. She denies any chest pain, palpitations, nausea, fever, urinary symptoms, GERD symptoms. Patient also reports that she went to [place] to check her BP after the pressing sensation in her chest and was told her BP was very high and to visit the ED. She reports has not been able to find a PCP and has run out of BP medication( amlodipine 5 mg) for 1 month. On admission her blood pressure was 190/118 mmHg, temp 97.8, pulse 67, SpO2 98% in room air. WBC count was 13.9, Tropes were negative, lipase 34, ultrasound shows cholelithiasis without sonographic evidence of acute cholecystitis. We are admitting the patient for further workup and management. PMH: Hypertension, cholelithiasis, acute cholecystitis , right rotator cuff tear past surgical history: none Family history: Reviewed, noncontributory of the management of this case Social history: Patient used to smoke 1 and half pack of cigarettes per day for few years, quit 1 year ago and vapes nicotine once in awhile; denies alcohol use, smokes marijuana a few puffs once in a while to sleep Allergies: Penicillin PCP: Does not have 1 Code status: Full code 09/20/2025: Continues to complain of pain in right upper quadrant which has improved from baseline. Surgery consulted. 09/21/25: Feeling better today. Complaining of headache, continue supportive management. Labs show WBC 12k, continue medical management, patient continue to refuse surgical management. 09/22/2025: Patient was seen at bedside today. Her WBC count was trending up. Patient was complaining of abdominal pain and headache at bedside today. Patient was agreeable to surgical management and and underwent laparoscopic cholecystectomy. Objective vital signs Vital Sign Date Time Temp Pulse Resp B/P (MAP) Pulse Ox O2 Delivery O2 Flow Rate FiO2 09/22/25 16:49 97.6 84 18 109/57 (74) 95 97.6 09/22/25 10:45 Room Air 0 97 Total Intake and Output 09/21/25 09/21/25 09/22/25 15:00 23:00 07:00 Intake Total 150 ml 740 ml 0 ml Balance 150 ml 740 ml 0 ml medications Current Medications Medications Dose Ordered Sig/Shirley Route Start Time Stop Time Status Last Admin Dose Admin Ondansetron HCl 4 mg Q4HP PRN IV 09/20/25 05:00 09/20/25 07:29 4 MG Ceftriaxone Sodium 50 ml @ 100 mls/hr DAILY@09 IV 09/21/25 09:00 09/22/25 11:34 100 MLS/HR Losartan Potassium 25 mg DAILY PO 09/20/25 10:00 09/21/25 10:53 25 MG Metronidazole 100 ml @ 100 mls/hr Q8HR IV 09/20/25 06:00 09/22/25 15:26 100 MLS/HR Pantoprazole Sodium 40 mg DAILY IV 09/20/25 10:00 09/22/25 11:34 40 MG Acetaminophen 650 mg Q6HR PRN PO 09/21/25 10:15 09/22/25 06:19 650 MG Acetaminophen/ Hydrocodone Bitart 1 tab Q4HPRN PRN PO 09/22/25 10:45 Acetaminophen/ Hydrocodone Bitart 1 tab Q4HP PRN PO 09/22/25 10:45 Ketorolac Tromethamine 15 mg Q8HR IV 09/22/25 14:00 09/27/25 13:59 09/22/25 15:26 15 MG Acetaminophen 650 mg Q6HR PO 09/22/25 12:00 09/22/25 13:11 650 MG Examination General: Patient alert and oriented in person, place and time. Patient following commands. HEENT: Normocephalic, atraumatic, moist mucous membranes Respiratory/pulmonary: Clear lungs bilaterally, vesicular murmurs present in almost all lung cota, no associated crackles or wheezes. Cardiovascular: Normal heart sounds S1 and S2 with no associated murmurs Abdomen: Mild Right upper quadrant tenderness on deep palpation, negative Velasquez's sign Extremities: There is no peripheral edema present at the lower extremities. Skin: No rashes or pruritus, there is no sacral edema present at this time. Neurological: Intact cranial nerves with no focal neurologic deficits laboratory and microbiology Laboratory Tests 09/22/25 05:23 Test 09/22/25 05:23 Range/Units Serum Glucose 91 74-106 mg/dL Microbiology Date/Time Source Procedure Growth Status 09/20/25 11:30 Blood Blood Culture - Preliminary NO GROWTH AFTER 48 HOURS OF INCUBATION. Resulted 09/20/25 06:15 Voided Urine Urine Culture - Final Escherichia coli Complete Problem List/Assessment/Plan Problem List/Assessment/Plan Symptomatic cholelithiasis with cystic duct obstruction Biliary colic Supportive management with NPO, IV fluids, Zofran, pain management USG gallbladder shows cholelithiasis without sonographic evidence of acute cholecystitis CT abdomen and pelvis without contrast Continue IV ceftriaxone 1 g daily, metronidazole 500 mg Q8H HIDA scan shows nonvisualization of gallbladder suggestive of cystic duct obstruction Surgery on board Patient underwent laparoscopic cholecystectomy (09/22/25) Hypertensive urgency Hydralazine 20 mg IV given once Losartan 20 mg p.o. daily Polysubstance abuse UDS positive for polysubstance use Patient counseled on cessation on bedside for more than 12 minutes Transaminitis with mild Hyperbilirubinemia, ALP elevation Possible Jonathon, recommend outpatient workup. Monitor CMP Pancreatitis ruled out DIET: NPO DVT PROPHYLAXIS: Ambulatory; SCDs ordered GI PROPHYLAXIS: Protonix CODE STATUS: Goals of care discussed with patient at bedside for more than 19 minutes. Full code DISPOSITION: Med/surge This medical document was created using an electronic medical record system with M*M flurenUsetrace direct computerized dictation system. Although this document has been carefully reviewed, there may still be some phonetic and typographical errors. These areas are purely typographical due to imperfections of the software programs, and do not reflect any compromise in the patient's medical care. Goals of care discussed with the patient for more than 19 minutes: Full code status Case discussed with Dr. Celis Plan discussed with: Patient, Other (nurses) Date of Service: Sep 22, 2025 Billing Provider: LEVI CELIS MD Common Visit Codes: [id number] INP/OBS CARE(HIGH) LES HD[facility] RESIDENT Sep 22, 2025 17:45 LEVI CELIS MD Sep 23, 2025 16:51
[2025-09-22] MEDS: HYDROcodone-ACET 10/325MG TAB PO PRN (20:35)
[2025-09-23] VITALS (7 sets, daily range): BP systolic 116–144; BP diastolic 60–98; PULSE 77–91; RESP 18–20; TEMP 97.2–98.2; O2SAT 92–98
[2025-09-23 07:36] LABS: Hematocrit 39.7 % (36.0-46.0); Hemoglobin 13.0 g/dL (12.2-16.2); Mean Corpuscular Hemoglobin 27.9 pg (28.0-32.0); Mean Corpuscular Volume 85.4 fL (80.0-100.0); Nucleated Red Blood Cells % 0.0 %
[2025-09-23 08:51] LABS: Alanine Aminotransferase 21 U/L (7-40); Alkaline Phosphatase 111 U/L (46-116); Anion Gap 12 (5-15); BUN/Creatinine Ratio 18.7 (10.0-20.0); Blood Urea Nitrogen 17 mg/dL (9-23); Carbon Dioxide 23 mmol/L (20-31); Potassium 4.2 mmol/L (3.5-5.1); Sodium 143 mmol/L (136-145)
[2025-09-23 08:52] LABS: Total Protein 6.6 g/dL (5.7-8.2)
[2025-09-23 08:53] LABS: Albumin 3.4 g/dL (3.2-4.8); Bilirubin, Direct 0.2 mg/dL (<0.3); Bilirubin, Total 0.5 mg/dL (0.2-1.0)
[2025-09-23 08:54] LABS: Calcium 8.5 mg/dL (8.7-10.4); Chloride 108 mmol/L (98-107); Glucose 133 mg/dL (74-106)
--- NOTE | 2025-09-23 11:12 | DVHPN2 ---
Progress Note - Surgical Date Seen: Sep 23, 2025 Post op day Post op day: 1 Subjective Patient reports: No new complaints Review of Systems: Deferred Objective Vital signs Vital Sign Date Time Temp Pulse Resp B/P (MAP) Pulse Ox O2 Delivery O2 Flow Rate FiO2 09/23/25 09:56 118/78 09/23/25 09:00 97.7 84 20 96 97.7 09/22/25 20:00 Room Air* 0 21 Total Intake and Output 09/22/25 09/22/25 09/23/25 15:00 23:00 07:00 Intake Total 150 ml 1100 ml 400 ml Balance 150 ml 1100 ml 400 ml Medications Current Medications Medications Dose Ordered Sig/Shirley Route Start Time Stop Time Status Last Admin Dose Admin Ondansetron HCl 4 mg Q4HP PRN IV 09/20/25 05:00 09/20/25 07:29 4 MG Ceftriaxone Sodium 50 ml @ 100 mls/hr DAILY@09 IV 09/21/25 09:00 09/23/25 09:53 100 MLS/HR Losartan Potassium 25 mg DAILY PO 09/20/25 10:00 09/21/25 10:53 25 MG Metronidazole 100 ml @ 100 mls/hr Q8HR IV 09/20/25 06:00 09/23/25 05:24 100 MLS/HR Pantoprazole Sodium 40 mg DAILY IV 09/20/25 10:00 09/23/25 09:53 40 MG Acetaminophen 650 mg Q6HR PRN PO 09/21/25 10:15 09/22/25 06:19 650 MG Acetaminophen/ Hydrocodone Bitart 1 tab Q4HPRN PRN PO 09/22/25 10:45 Acetaminophen/ Hydrocodone Bitart 1 tab Q4HP PRN PO 09/22/25 10:45 09/23/25 09:57 1 TAB Ketorolac Tromethamine 15 mg Q8HR IV 09/22/25 14:00 09/27/25 13:59 09/23/25 05:24 15 MG Acetaminophen 650 mg Q6HR PO 09/22/25 12:00 09/23/25 05:25 650 MG Laboratory Laboratory Tests 09/23/25 05:30 Test 09/23/25 05:30 Range/Units Serum Glucose 133 H 74-106 mg/dL Microbiology Date/Time Source Procedure Growth Status 09/20/25 11:30 Blood Blood Culture - Preliminary NO GROWTH AFTER 48 HOURS OF INCUBATION. Resulted 09/20/25 06:15 Voided Urine Urine Culture - Final Escherichia coli Complete Examination: GENERAL:Normal, HEENT:Normal, ABDOMEN:Normal (Nondistended, soft, depressible, incision sites with overlying skin glue and without surrounding signs of infection, appropriate tenderness) Labs and/or images reviewed: Labs reviewed by me (Leukocytosis to 15 likely reactive) Problem List/Assessment/Plan Assessment and Plan Mrs. Hendrix is a 44-year-old female who presented with the acute cholecystitis ultrasound shows multiple gallstones within the gallbladder wall lumen. Patient also has a positive HIDA scan. She will benefit from laparoscopic cholecystectomy. I went over the procedure, risks, benefits, complications, and alternatives. Patient is unsure if she wants surgery at this point. I thoroughly explained the possible complications if this acute cholecystitis episode goes untreated and patient is still does not want surgery at this point. Interval: Patient is postop day 1 from laparoscopic cholecystectomy due to acute cholecystitis. LFTs within normal limits. Patient cleared for discharge per surgical standpoint. 1. Cleared for discharge per surgical standpoint 2. No lifting over 10 lb for 6-8 weeks 3. May shower soap and water okay to run over incision sites. 4. No swimming or bathing for 2 weeks 5. For baseline pain control Tylenol and/or ibuprofen, please follow sales development consultant's directions 6. Recommend Lynn 5-325 mg 1 tab p.o. every 6 hours p.r.n. severe pain 7. No driving while taking narcotics 8. Follow up with Dr. Navarro at surgery [facility] in 2 weeks, please call for appointment. Plan discussed with Plan discussed with: Patient Visit Coding Surgery Date of Service if different f: Sep 23, 2025 Billing Provider: EULA LOPEZ MD Surgery Visit Codes: NOT BILLABLE EULA LOPEZ MD Sep 23, 2025 11:11
--- NOTE | 2025-09-23 13:13 | DVHPN2 ---
Subjective Feeling better Less abdominal pain No nausea or vomiting Changes from previous H/P or p: Changes Eyes: No Pain, No Vision change, No Conjunctivae inflammation, No Eyelid inflammation, No Other, No Redness ENT: No Ear pain, No Ear discharge, No Nose pain, No Nose discharge, No Nose congestion, No Mouth pain, No Mouth swelling, No Throat pain, No Throat swelling, No Other Cardiovascular: No Chest Pain, No Palpitations, No Orthopnea, No Paroxysmal Noc. Dyspnea, No Edema, No Lt Headedness, No Other Respiratory: No Cough, No Dry, No Shortness of breath, No SOB with excertion, No Wheezing, No Hemoptysis, No Pleuritic Pain, No Sputum, No Other Gastrointestinal: No Nausea; Vomiting, Abdominal Pain; No Diarrhea, No Constipation, No Melena, No Hematochezia, No Other Genitourinary: No Dysuria, No Frequency, No Incontinence, No Hematuria, No Retention, No Other Musculoskeletal: No other, No neck pain, No shoulder pain, No arm pain, No back pain, No hand pain, No leg pain, No foot pain Skin: No Rash, No Lesions, No Jaundice, No Bruising, No Other Objective Vitals Vital Signs Date Time Temp Pulse Resp B/P (MAP) Pulse Ox O2 Delivery O2 Flow Rate FiO2 09/23/25 09:56 118/78 09/23/25 09:00 97.7 84 20 96 97.7 09/22/25 20:00 Room Air* 0 21 Intake/Output Intake and Output 09/23/25 07:00 Intake Total 1650 ml Balance 1650 ml Intake Oral 1200 ml IV Total 450 ml # Voids 5 General Appearance: Alert, Oriented X3, Cooperative, No acute distress Cardiovascular: Regular rate, Normal S1, Normal S2 Extremities: No edema Medications Current Medications Medications Dose Ordered Sig/Shirley Route Start Time Stop Time Status Last Admin Dose Admin Ondansetron HCl 4 mg Q4HP PRN IV 09/20/25 05:00 09/20/25 07:29 4 MG Ceftriaxone Sodium 50 ml @ 100 mls/hr DAILY@09 IV 09/21/25 09:00 09/23/25 09:53 100 MLS/HR Losartan Potassium 25 mg DAILY PO 09/20/25 10:00 09/21/25 10:53 25 MG Metronidazole 100 ml @ 100 mls/hr Q8HR IV 09/20/25 06:00 09/23/25 05:24 100 MLS/HR Pantoprazole Sodium 40 mg DAILY IV 09/20/25 10:00 09/23/25 09:53 40 MG Acetaminophen 650 mg Q6HR PRN PO 09/21/25 10:15 09/22/25 06:19 650 MG Acetaminophen/ Hydrocodone Bitart 1 tab Q4HPRN PRN PO 09/22/25 10:45 Acetaminophen/ Hydrocodone Bitart 1 tab Q4HP PRN PO 09/22/25 10:45 09/23/25 09:57 1 TAB Ketorolac Tromethamine 15 mg Q8HR IV 09/22/25 14:00 09/27/25 13:59 09/23/25 05:24 15 MG Acetaminophen 650 mg Q6HR PO 09/22/25 12:00 09/23/25 12:03 650 MG Laboratory Results Laboratory Tests 09/23/25 05:30 Chemistry Test 09/23/25 05:30 Albumin 3.4 g/dL (3.2-4.8) Calcium Level 8.5 mg/dL (8.7-10.4) L Total Protein 6.6 g/dL (5.7-8.2) LFT Test 09/23/25 05:30 Alanine Aminotransferase (ALT) 21 U/L (7-40) Alkaline Phosphatase 111 U/L (46-116) Aspartate Amino Transferase (AST) 18 U/L (13-40) Direct Bilirubin 0.2 mg/dL (<0.3) Total Bilirubin 0.5 mg/dL (0.2-1.0) Urinalysis Test 09/20/25 06:36 Urine Color Colorless (Yellow) Urine Clarity Clear (Clear) Urine pH 5.5 (5.0-9.0) Urine Specific Douglas 1.009 (1.001-1.035) Urine Protein Negative (Negative) Urine Ketones Negative (Negative) Urine Blood Negative /uL (Negative) Urine Nitrite Negative (Negative) Urine Bilirubin Negative (Negative) Urine Urobilinogen Normal mg/dL (Negative) Urine Leukocyte Esterase 1+ /uL (Negative) Urine RBC 1 /hpf (0 - 4) Urine Microscopic WBC 3 /HPF (0-5) Urine Squamous Epithelial Cells None seen /hpf (<5) Urine Bacteria None seen /hpf (None Seen) Urine Glucose Normal mg/dL (Normal) Urine Test Negative (Negative) Microbiology Microbiology Date/Time Source Procedure Growth Status 09/20/25 11:30 Blood Blood Culture - Preliminary NO GROWTH AFTER 72 HOURS OF INCUBATION. Resulted 09/20/25 06:15 Voided Urine Urine Culture - Final Escherichia coli Complete Assessment/Plan Assessment/Plan Acute cholecystitis status post cholecystectomy Symptomatic cholelithiasis with cystic duct obstruction Biliary colic Hypertensive urgency Polysubstance abuse Transaminitis with mild Hyperbilirubinemia, ALP elevation Pancreatitis ruled out Plan Advance diet slowly as tolerated Out of bed IV Rocephin and Flagyl Pain management as needed Discharge planning for tomorrow Plan discussed with: Patient Date of Service: Sep 23, 2025 Billing Provider: LEVI DAVIS MD Common Visit Codes: [id number] INP/OBS CARE(HIGH) LEVI DAVIS MD Sep 23, 2025 13:13
[2025-09-23] MEDS: HYDROcodone-ACET 5/325MG TAB PO PRN (20:17)
[2025-09-24 01:00] VITALS: BP 134/88; PULSE 81; RESP 20; TEMP 97.9; O2SAT 95
[2025-09-24 05:00] VITALS: BP 142/92; PULSE 71; RESP 18; TEMP 98.9; O2SAT 98
[2025-09-24 07:28] LABS: Hematocrit 39.5 % (36.0-46.0); Hemoglobin 13.1 g/dL (12.2-16.2); Mean Corpuscular Hemoglobin 28.8 pg (28.0-32.0); Mean Corpuscular Volume 86.9 fL (80.0-100.0); Nucleated Red Blood Cells % 0.1 %
[2025-09-24 08:25] LABS: Alanine Aminotransferase 19 U/L (7-40); Albumin 3.2 g/dL (3.2-4.8); Alkaline Phosphatase 97 U/L (46-116); BUN/Creatinine Ratio 22.1 (10.0-20.0); Blood Urea Nitrogen 15 mg/dL (9-23); Carbon Dioxide 24 mmol/L (20-31); Glucose 83 mg/dL (74-106); Magnesium 1.9 mg/dL (1.6-2.6); Total Protein 6.4 g/dL (5.7-8.2)
[2025-09-24 08:26] LABS: Bilirubin, Total 0.4 mg/dL (0.2-1.0); Calcium 8.1 mg/dL (8.7-10.4)
[2025-09-24 08:50] LABS: Anion Gap 9 (5-15); Chloride 106 mmol/L (98-107); Potassium 4.3 mmol/L (3.5-5.1); Sodium 139 mmol/L (136-145)
[2025-09-24 09:00] VITALS: BP 157/105; PULSE 79; RESP 20; TEMP 97; O2SAT 97
[2025-09-24 10:45] VITALS: BP 151/93; PULSE 62
[2025-09-24] MEDS ORDERED: HYDR-4902 PO (10:52)
[2025-09-24] MEDS ORDERED: METR-344 PO (10:52)
[2025-09-24] MEDS ORDERED: CIPR-173 PO (10:52)
[2025-09-24] MEDS ORDERED: LOS25T PO (10:52)
[2025-09-24] MEDS ORDERED: BACDST PO (10:55)
--- NOTE | 2025-09-24 13:20 | DVHDSRES ---
Discharge Summary Date of Admission Resident Creating Document: LES [facility] RESIDENT Sep 20, 2025 at 04:58 Date of Discharge: Sep 24, 2025 Labs/Diagnostic Data: Laboratory Results Test 09/24/25 06:18 09/23/25 05:30 09/20/25 14:48 09/20/25 10:18 White Blood Count 9.4 10^3/uL (4.4-10.8) Red Blood Count 4.55 10^6/uL (4.0-5.20) Hemoglobin 13.1 g/dL (12.2-16.2) Hematocrit 39.5 % (36.0-46.0) Mean Corpuscular Volume 86.9 fL (80.0-100.0) Mean Corpuscular Hemoglobin 28.8 pg (28.0-32.0) Mean Corpuscular Hemoglobin Concent 33.1 g/dL (32.0-36.0) Red Cell Distribution Width 13.4 % (11.8-14.3) Platelet Count 329 10^3/uL (140-450) Mean Platelet Volume 8.6 fL (6.9-10.8) Neutrophils (%) (Auto) 60.8 % (37.0-80.0) Lymphocytes (%) (Auto) 28.7 % (10.0-50.0) Monocytes (%) (Auto) 8.4 % (0.0-12.0) Eosinophils (%) (Auto) 1.8 % (0.0-7.0) Basophils (%) (Auto) 0.3 % (0.0-2.0) Neutrophils # (Auto) 5.7 10 ^3/uL (1.6-8.6) Lymphocytes # (Auto) 2.7 10 ^3/uL (0.4-5.4) Monocytes # (Auto) 0.8 10 ^3/uL (0-1.3) Eosinophils # (Auto) 0.2 10 ^3/uL (0-0.8) Basophils # (Auto) 0 10 ^3/uL (0-0.2) Nucleated Red Blood Cells 0.1 % Sodium Level 139 mmol/L (136-145) Potassium Level 4.3 mmol/L (3.5-5.1) Chloride Level 106 mmol/L (98-107) Carbon Dioxide Level 24 mmol/L (20-31) Anion Gap 9 (5-15) Blood Urea Nitrogen 15 mg/dL (9-23) Creatinine 0.68 mg/dL (0.550-1.02) Glomerular Filtration Rate Calc 109 mL/min (>90) BUN/Creatinine Ratio 22.1 (10.0-20.0) Serum Glucose 83 mg/dL (74-106) Calcium Level 8.1 mg/dL (8.7-10.4) Magnesium Level 1.9 mg/dL (1.6-2.6) Total Bilirubin 0.4 mg/dL (0.2-1.0) Aspartate Amino Transferase (AST) 17 U/L (13-40) Alanine Aminotransferase (ALT) 19 U/L (7-40) Alkaline Phosphatase 97 U/L (46-116) Total Protein 6.4 g/dL (5.7-8.2) Albumin 3.2 g/dL (3.2-4.8) Direct Bilirubin 0.2 mg/dL (<0.3) Influenza Type A Antigen Negative (Negative) Influenza Type B Antigen Negative (Negative) SARS-CoV-2 Antigen (Rapid) Negative (NEGATIVE) Lactic Acid Level 1.2 mmol/L (0.4-2.0) B-Type Natriuretic Peptide 70.84 pg/mL (0-100) Test 09/20/25 08:57 09/20/25 06:36 09/20/25 06:13 09/20/25 02:47 Troponin I High Sensitivity 4 ng/L (</=34) Urine Color Colorless (Yellow) Urine Clarity Clear (Clear) Urine pH 5.5 (5.0-9.0) Urine Specific [place] 1.009 (1.001-1.035) Urine Protein Negative (Negative) Urine Ketones Negative (Negative) Urine Blood Negative /uL (Negative) Urine Nitrite Negative (Negative) Urine Bilirubin Negative (Negative) Urine Urobilinogen Normal mg/dL (Negative) Urine Leukocyte Esterase 1+ /uL (Negative) Urine RBC 1 /hpf (0 - 4) Urine Microscopic WBC 3 /HPF (0-5) Urine Squamous Epithelial Cells None seen /hpf (<5) Urine Bacteria None seen /hpf (None Seen) Urine Glucose Normal mg/dL (Normal) Urine Test Negative (Negative) Urine Opiates Screen Neg (NEGATIVE) Urine Fentanyl Screen Neg (NEGATIVE) Urine Barbiturates Screen Neg (NEGATIVE) Urine Phencyclidine Screen Neg (NEGATIVE) Urine Amphetamines Screen Pos (NEGATIVE) Urine Benzodiazepines Screen Neg (NEGATIVE) Urine Cocaine Screen Neg (NEGATIVE) Urine Cannabinoids Screen Pos (NEGATIVE) Prothrombin Time 10.9 sec (9.3-11.8) Prothrombin Time INR 1.03 (0.9-1.15) Activated Partial Thromboplast Time 31.9 SEC (24.5-34.5) Hepatitis B Core IgM Antibody Negative (Negative) Hepatitis C Antibody Negative (Negative) Beta HCG, Quantitative 1.6 mIU/mL (1.5-4.2) Test 09/20/25 01:24 Lipase 34 U/L (12-53) Other Laboratory Tests 09/24/25 06:18 Brief Hx & Hospital Course: Brief history on arrival 43-year-old female with history of hypertension and gallstones, came to the ED with a chief complaints of right upper quadrant abdominal pain. Patient reports that she had eaten grant and eggs in the morning, after which she had acute onset of sharp right upper quadrant pain, 10/10 intensity, radiating to the back, with no aggravating or relieving factors, associated with 3 episodes of watery, nonbloody emesis and chills. She also mentions that she has been under a lot of stress lately and had shortness of breath and pressure-like feeling in her chest which lasted a few minutes and went away after the abdominal pain started. She denies any chest pain, palpitations, nausea, fever, urinary symptoms, GERD symptoms. Patient also reports that she went to [facility] to check her BP after the pressing sensation in her chest and was told her BP was very high and to visit the ED. She reports has not been able to find a PCP and has run out of BP medication( amlodipine 5 mg) for 1 month. On admission her blood pressure was 190/118 mmHg, temp 97.8, pulse 67, SpO2 98% in room air. WBC count was 13.9, Tropes were negative, lipase 34, ultrasound shows cholelithiasis without sonographic evidence of acute cholecystitis. We are admitting the patient for further workup and management. Hospital course: Initial labs revealed leukocytosis. USG gallbladder shows cholelithiasis without sonographic evidence of acute cholecystitis Patient was started on supportive management started with NPO, IV fluids, Zofran, pain medication. Started IV ceftriaxone and metronidazole. HIDA scan shows nonvisualization of gallbladder suggestive of cystic duct obstruction. Surgery was on board. She underwent laparoscopic cholecystectomy on 09/22/2025. Hypertensive urgency managed with hydralazine, losartan. Her urine culture is growing E coli resistant to fluoroquinolones. Patient's WBC count has normalized, she is hemodynamically stable. Patient was cleared by surgery for discharge, she will be discharged home on oral antibiotics. Conditions managed during stay: Acute cholecystitis status post laparoscopic cholecystectomy on 09/22/2025 Symptomatic cholelithiasis with cystic duct obstruction Biliary colic due to acute cholecystitis Hypertensive urgency, resolved Polysubstance abuse Transaminitis with mild Hyperbilirubinemia, ALP elevation Pancreatitis ruled out Plan: Continue antibiotic course with p.o. Flagyl t.i.d. and Bactrim b.i.d. for 7 days Pain management with [place], Tylenol OTC as needed. Discussed no driving motor vehicle while on [place]. Discontinued amlodipine, continue losartan 25 mg p.o. daily for management of hypertension Continue home medications Follow up with surgery in outpatient clinic in 2 weeks Follow up with PCP in 1 week Consults/Reason for consult Surgery on board, recommended laparoscopic cholecystectomy for acute cholecystitis. Operations or Procedures Report Details Date: 09/22/25 Preop Diagnosis: Acute cholecystitis Postop Diagnosis: Same Surgeon: Julio Jenkins MD Anesthesiologist: Dr. Isabel Anesthesia: General Consent: The patient was informed of the risks and benefits of the procedure. These include but are not limited to complications of anesthesia, postoperative infection, incomplete relief of symptoms, recurrence of symptoms, damage to blood vessels, nerves and tendons, deep venous thrombosis, pulmonary embolism and possible need for repeat surgery in the future. Estimated Blood Loss: 15 mL Findings: Acutely inflamed gallbladder with dense omental adhesions to the gallbladder, adhesions between stomach and gallbladder, hypervascular, dome of the gallbladder very scarred to the liver. Indications for Surgery: Acute cholecystitis Name of Procedure Performed Laparoscopic cholecystectomy Procedure Details Procedure Details: Upon arrival to the operating room the patient was transferred to the operating table and placed in the supine position with arms extended. General endotracheal anesthesia was induced. Time-out was observed. Patient was prepped and draped in the standard sterile surgical fashion with chlorhexidine. I then proceeded to make an infraumbilical curvilinear incision and carried the dissection down to fascia. once at the fascia I then grasped the umbilical stalk with [place] clamp and walked it down to its base. Once at the base of the umbilical stalk I gained entry into the peritoneal cavity utilizing Warner technique. I then placed a 0 Vicryl fascial retention suture in [id number] fashion. I then introduced the Warner trocar and insufflated the peritoneal cavity to 15 mmHg with toleration. I then inserted a 10 mm 30 degree camera, surveyed the entry site no injuries noted. Patient was then placed in the reverse Trendelenburg [id number] position. I then placed 3 additional working 5 mm ports at the epigastric area, right midclavicular subcostal area and right flank area. I then directed my attention to the liver gallbladder. Gallbladder was very distended with thick omental adhesions to it. I took down the omental adhesions to the gallbladder with cautery, sharp and bluntly. There were also some stomach adhesions to the gallbladder these adhesions were taken down with scissors. Once the gallbladder was free from adhesions it was noted to be very distended, acutely inflamed and very hypervascular. I then decompressed the gallbladder with needle syringe, and extracted 60 mL of bilious fluid. I then placed a grasper at the fundus of the gallbladder and retracted it cephalad and towards the right shoulder. A 2nd grasper was used to retract laterally at the infundibulum. This exposed Calot triangle. I then incised the peritoneum at either side of the base of the gallbladder and carried it down to the liver. I then proceeded to dissect all of the fibrous and fatty tissue of Calot triangle. Once Calot triangle was without any fevers or fatty tissue I was able to identify 2 structures entering the gallbladder, the cystic duct and cystic artery. Critical view was obtained. Cystic duct was then milked for any stones with [place] device, none found. I then clipped the cystic duct 3 times proximal 1 times distal with 5 mm clips. I then clipped the artery 2 times proximal 1 times distal with 5 mm clips. I then proceeded to transect the duct 1st and in the artery. I then noted a posterior cystic artery branch, that was also clipped twice proximal and 1 distal with 5 mm clips, and transected. I then dissected the gallbladder off of the liver bed with electrocautery. The dome of the gallbladder was extremely scarred into the liver and I got into the gallbladder at that point, I had some bile spillage. Once the gallbladder was completely free from the liver bed it was placed in the Endo-Catch bag, along with 2 large stones that had fallen out of the gallbladder through the previous hole. Gallbladder and contents was removed from the peritoneal cavity at the umbilical site. I then proceeded to look at the gallbladder fossa there were 2 areas that had a cauterized due to minimal oozing. I then serially irrigated the gallbladder fossa under the liver and over the liver until all effluent was clear. This concluded the intraperitoneal portion of the operation. All counts complete and correct. All 5 mm ports were removed under direct vision, no bleeding coming from abdominal wall. The peritoneal cavity was allowed to fully desufflate and the fascial retention suture was closed. Marcaine 0.25% was used as local anesthetic. All skin sites were closed with 4-0 Monocryl and Dermabond. Patient tolerated the procedure well and was transferred to PACU in stable condition. Condition Stable Procedure: NM NM HIDA SCAN Exam Date: 09/20/2025 11:27 AM Clinical History: rule out cholecystitis Comparison Study: US GALLBLADDER on DOS: 09/20/25, NM NM HIDA SCAN on DOS: 08/14/25, US GALLBLADDER on DOS: 08/11/25, US GALLBLADDER on DOS: 05/15/24 Nuclear Medicine Hepatobiliary Scan. Technique: Following the intravenous administration of 6.5 mCi of technetium 99m labeled Choletec multiple planar abdominal planar images were obtained in anterior projection in 5 minute intervals for 60 minutes . Right lateral images were obtained at 240 minutes after injection. Findings: The liver appears grossly normal in size. There is no abnormal persistence of the cardiac or blood pool activity. There is nonvisualization of the gallbladder. There is excretion into the small bowel. Impression: Nonvisualization of the gallbladder suggestive of cystic duct obstruction. CHEST RADIOGRAPH Indication: sob Technique: Single frontal view of the chest was obtained COMPARISON: CT CT AB PEL WO CON-NO ORAL OR IV on DOS: 04/11/25 FINDINGS: Lines and Tubes: None Lungs: Increased interstitial prominence. This may represent pulmonary vascular congestion and/or viral pneumonia. Pleura: No effusion. No pneumothorax. Cardiomediastinal contours: Unremarkable Bones: Unremarkable IMPRESSION: Increased interstitial prominence. This may represent pulmonary vascular congestion and/or viral pneumonia. Exam: CT CT AB PEL WO CON-NO ORAL OR IV History: cholilithiasis, rule out cholecystitis Comparison Study: CT CT AB PEL WO CON-NO ORAL OR IV on DOS: 04/11/25 Technique: Multidetector spiral CT of the chest, abdomen and pelvis was performed from lower neck to pubic symphysis Axial, coronal and sagittal multiplanar reformats were performed by the technologist on a separate workstation. Radiation Dose : 1. Chest/Abdomen/Pelvis: CTDIvol 14.21 mGy, DLP 786.94 mGy*cm. Findings: Lower neck: Normal thyroid. Lungs: No focal consolidation, pleural effusion or pneumothorax. Moderate bibasilar atelectasis. Heart/Vascular Structures: Normal heart size. No pericardial effusion. Lymph Nodes: No adenopathy Pleura: No pleural effusion or significant pneumothorax. Liver: The liver is normal in size. No focal lesions. Normal hepatic vascular enhancement. Gallbladder and Biliary Tree: Unremarkable Spleen: Unremarkable Pancreas: The pancreas is normal in appearance without focal lesions or abnormal enhancement. Adrenal Glands: Unremarkable Kidneys: Kidneys demonstrate normal symmetric enhancement without focal lesions, calculi or hydronephrosis. Bladder: Unremarkable Bowel: The stomach is grossly normal in appearance. Small bowel and colon are normal in caliber and distribution. The appendix is not visualized; however, no secondary findings of acute appendicitis identified. Ascites: Absent Lymphadenopathy: Conspicuous mildly enlarged right lower quadrant mesenteric lymph nodes measure up to approximately 14 mm in short axis dimension. Abdominal Wall and Mesentery: Unremarkable. Vasculature: The visualized abdominal aorta is normal in size and caliber. Abdominal and pelvic vessels demonstrate normal enhancement. Pelvic Organs: Unremarkable Musculoskeletal: No aggressive focal bony lesions, acute fractures or dislocation. IMPRESSION: 1. No acute findings involving the chest, abdomen or pelvis. 2. Conspicuous mildly enlarged right lower quadrant mesenteric lymph nodes measure up to approximately 14 mm in short axis dimension and may represent sequelae of mesenteric adenitis. INDICATION: abd pain TECHNIQUE: Multiple real-time sonographic images were obtained of the right upper quadrant. COMPARISON: NM NM HIDA SCAN on DOS: 08/14/25, US GALLBLADDER on DOS: 08/11/25, US GALLBLADDER on DOS: 05/15/24, CT ABD PELVIS WO CONTRAST on DOS: 08/05/20 FINDINGS: The liver demonstrates normal homogeneous echotexture without focal mass lesions. The liver measures 15.5 cm. Normal hepatopetal portal venous flow appreciated. No evidence of pleural effusion or abdominal ascites. There is no intrahepatic or extrahepatic ductal dilatation. The common duct measures 0.6 cm. Mobile gallstones within the distended gallbladder. The gallbladder wall measures 0.2 cm and is within normal limits. Negative sonographic sweeney's sign. The right kidney measures 12.2 cm. The right kidney is normal in contour, size, and shape. The echogenicity is normal. There is no hydronephrosis. The pancreas is not well visualized due to overlying bowel gas. IMPRESSION: 1. Cholelithiasis without sonographic evidence of acute cholecystitis. Condition at Discharge: Stable Final Diagnosis/Problems List Acute cholecystitis status post cholecystectomy Symptomatic cholelithiasis with cystic duct obstruction Biliary colic due to acute cholecystitis Hypertensive urgency Polysubstance abuse Transaminitis with mild Hyperbilirubinemia, ALP elevation Pancreatitis ruled out Discharge Disposition: Home Discharge Instruct/Medications Diet: Cardiac 2g Na,low cholest Activity: Light activity Activity comment: - No lifting over 10 lb for 6-8 weeks - May shower soap and water okay to run over incision sites. - No swimming or bathing for 2 weeks Follow Up/Referral: PCP in 1 week Surgery in outpatient clinic in 7-14 days Medications: As per EHR New Medications: Hydrocodone-Acetaminophen (Hydrocodone Bitartrate/AC 5-325 mg) 1 Tab Tab 1 TAB PO Q6HP PRN, #15 TAB Metronidazole (Flagyl) 500 Mg Tab 1 TAB PO TID for 7 Days, #21 TAB Sulfamethoxazole W/Trimethopri (Bactrim Ds Tablet) 1 Tab Tb 1 TAB PO BID for 7 Days, #14 TAB Losartan Potassium (Losartan Potassium) 25 Mg Tab 25 MG PO DAILY for 30 Days, #30 TAB 5 Refills Discontinued Medications: Acetaminophen (Tylenol) 325 Mg Tb 325 MG PO Q4HPRN PRN, #30 TAB 0 Refills Take 1-2 caps po q4h prn for pain (Do not exceed 3,000mg of acetaminophen in 24 hours) Amlodipine Besylate (Norvasc Tablet) 5 Mg Tb 5 MG PO DAILY for 90 Days, #90 TAB Amoxicillin & Pot Clavulanate (Augmentin Tablet) 875 Mg Tb 875 MG PO BID for 5 Days, #10 TAB 0 Refills Ibuprofen Micronized (Motrin Tablet) 600 Mg Tb 200 MG PO TID, #40 TAB *Black box warning-NSAIDS can increase risk of ND & hypertension, GI irritation, ulceration, bleed, perferation. Do not use post cardiac surgery. Use short duration/lowest effective dose. Meclizine HCl (Meclizine Hydrochloride) 25 Mg Tab 25 MG PO [id number] PRN, #12 TAB 0 Refills Scheduled Losartan Potassium (Losartan Potassium), 25 MG PO DAILY Metronidazole (Flagyl), 1 TAB PO TID Sulfamethoxazole W/Trimethopri (Bactrim Ds Tablet), 1 TAB PO BID Scheduled PRN Hydrocodone-Acetaminophen (Hydrocodone Bitartrate/AC 5-325 mg), 1 TAB PO Q6HP PRN Discontinued Medications Acetaminophen (Tylenol), 325 MG PO Q4HPRN PRN Amlodipine Besylate (Norvasc Tablet), 5 MG PO DAILY Amoxicillin & Pot Clavulanate (Augmentin Tablet), 875 MG PO BID Ibuprofen Micronized (Motrin Tablet), 200 MG PO TID, (Reported) Meclizine HCl (Meclizine Hydrochloride), 25 MG PO [id number] PRN Discharge Statement: "Patient was advised to return to the ER or call 911 if any headaches, dizziness, shortness of breath, chest pain, abdominal pain, bleeding, fevers, or worsening of medical condition. Patient was counseled about treatment plan, medications, possible side effects, patientverbalized understanding. All questions were answered to the best of my ability. This discharge took greater then 30 minutes in planning, reviewing documentation, counseling the patient, and discussing with other team members." ASSESSMENT ASSESSMENT Assessment Acute cholecystitis status post cholecystectomy Symptomatic cholelithiasis with cystic duct obstruction Biliary colic Hypertensive urgency Polysubstance abuse Transaminitis with mild Hyperbilirubinemia, ALP elevation Pancreatitis ruled out Date of Service: Sep 24, 2025 Billing Provider: LEVI DAVIS MD Common Visit Codes: 94382-XGO/OBS DISCH DAY >30min LES [facility] RESIDENT Sep 24, 2025 13:20 LEVI DAVIS MD Sep 24, 2025 15:47
[2025-09-24 13:26] VITALS: BP 138/91; PULSE 76; RESP 20; TEMP 98.3; O2SAT 97
== END 2025-09-24 14:31 | disposition home or self-care (01) | DRG 263 ==
LOC: ER 00:52 → OVERFLOW 04:58 → WEST WING 17:28
PROVIDERS: ADMIT Internal Medicine Geriatric Medicine; ATTEND Internal Medicine Geriatric Medicine
PROC: 0FT44ZZ Resection of Gallbladder, Percutaneous Endoscopic Approach (ICD-10-PCS; principal; 2025-09-22 08:50)
DX: K80.01 Calculus of gallbladder with acute cholecystitis with obstruction (principal); I16.0 Hypertensive urgency; F19.10 Other psychoactive substance abuse, uncomplicated; I10 Essential (primary) hypertension; R74.01 Elevation of levels of liver transaminase levels; E80.6 Other disorders of bilirubin metabolism; Z20.822 Contact with and (suspected) exposure to COVID-19; K66.0 Peritoneal adhesions (postprocedural) (postinfection); Z82.49 Family history of ischemic heart disease and other diseases of the circulatory system; Z88.0 Allergy status to penicillin; Z87.891 Personal history of nicotine dependence
CPT/HCPCS: 36415; 71045; 74176; 76705; 78226; 80053; 80307; 81001; 81025; 82248; 83605; 83690; 83735; 83880; 84484; 84702; 85025; 85610; 85730; 86705; 86803; 86850; 86900; 86901; 87040; 87086; 87088; 87186; 87426; 87804; 96374; 96375; 99291; G0378; J0131; J0330; J0694; J1100; J1885; J2405; J2470; J2704; J3490; Q0162